=== PATIENT | male | born 1965 | race Caucasian/White ===

== ENCOUNTER 2016-10-15 10:30 | Inpatient (IN) | payer BC ==
[~2016-10-15] VITALS: Ht 170.2 cm; Wt 83.5 kg
[2016-10-15] MEDS ORDERED: ASPIRIN 81 MG TAB PO STA (10:34)
[2016-10-15] MEDS ORDERED: NITROGLYCERIN 2% 1 GM OINT PKT TD STA (10:34)
[2016-10-15] MEDS ORDERED: SOD CHLORIDE 0.9% 500 ML IV STA (10:40)
[2016-10-15] MEDS ORDERED: IODIXANOL LOCM 100 ML BTL ONE (10:58)
[2016-10-15] MEDS ORDERED: SOD CHLORIDE 0.9% 100 ML ONE (10:58)
[2016-10-15] MEDS ORDERED: IODIXANOL LOCM 50 ML BTL ONE (10:59)
[2016-10-15] MEDS ORDERED: LORAZEPAM 2 MG INJ IV ONE ×2 (11:00→12:30)
--- NOTE | 2016-10-15 11:01 | ERA ---
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 The patient has a history of hypertension and diabetes. He presents the emergency room complaining of chest pain. He states that prior to arrival while in his vehicle he started to have chest pain that was pressure-like radiating to his left arm. EMS notes that the patient had intermittent twitching of his left upper extremity without loss of consciousness. The patient denies any back pain, no fevers, chills, headache or shortness of breath. ROS All systems reviewed and are negative except as per history of present illness. Medications Home Meds No Active Prescriptions or Reported Meds Allergies Allergies: Coded Allergies: No Known Drug Allergies (Verified Allergy, Unknown, 10/15/16) PMhx/Soc History of Surgery: No Anesthesia Reaction: No Hx Neurological Disorder: No Hx Respiratory Disorders: No Hx Cardiac Disorders: No Hx Psychiatric Problems: No Hx Miscellaneous Medical Probl: No Hx Alcohol Use: Yes (OCCASSIONAL) Hx Substance Use: No Hx Tobacco Use: No FmHx Family History: diabetes Physical Exam Vitals Vital Signs Date Time Temp Pulse Resp B/P Pulse Ox O2 Delivery O2 Flow Rate FiO2 10/15/16 10:59 Nasal Cannula 10/15/16 10:48 98.8 79 30 133/64 98 Physical Exam General: Well developed, well nourished, no acute distress, the patient is intermittently having spasms of the left upper extremity Head: Normocephalic, atraumatic. Eyes: Pupils equally reactive, EOM intact ENT: Moist mucous membranes Neck: Supple, no lymphadenopathy Respiratory: Lungs clear bilaterally, no distress Cardiovascular: RRR, no murmurs, rubs, or gallops Abdominal: Soft, non-tender, non-distended, no peritoneal signs : Deferred MSK: No edema, no unilateral swelling, 5/5 strength, no pulse deficits Neurologic: Alert and oriented, moving all extremities, normal speech, no focal weakness, no cerebellar signs Skin: No rash Psych: Normal mood Result Diagram: 10/15/16 1048 10/15/16 1048 Results 24 hrs Laboratory Tests Test 10/15/16 10:35 10/15/16 10:48 10/15/16 11:42 4/24/17 12:13 Total Bilirubin 0.4mg/dl Direct Bilirubin 0.00mg/dl Indirect Bilirubin 0.4mg/dl Aspartate Amino Transf (AST/SGOT) 64IU/L Alanine Aminotransferase (ALT/SGPT) 29IU/L Alkaline Phosphatase 300IU/L Total Protein 6.6g/dl Albumin 2.7g/dl Lipase 680U/L White Blood Count 14.410^3/ul Red Blood Count 3.5610^6/ul Hemoglobin 10.3g/dl Hematocrit 32.3% Mean Corpuscular Volume 90.7fl Mean Corpuscular Hemoglobin 28.9pg Mean Corpuscular Hemoglobin Concent 31.9g/dl Red Cell Distribution Width 13.7% Platelet Count 06243^3/UL Mean Platelet Volume 11.1fl Neutrophils % 86.8% Lymphocytes % 6.3% Monocytes % 5.8% Eosinophils % 0.1% Basophils % 0.2% Nucleated Red Blood Cells % 0.0/100WBC Neutrophils # 12.510^3/ul Lymphocytes # 0.910^3/ul Monocytes # 0.810^3/ul Eosinophils # 0.010^3/ul Basophils # 0.010^3/ul Nucleated Red Blood Cells # 0.010^3/ul Prothrombin Time 15.4Sec Prothrombin Time Ratio 1.2 INR International Normalized Ratio 1.21 Activated Partial Thromboplast Time 37.1Sec Sodium Level 122mmol/L Potassium Level 5.0mmol/L Chloride Level 91mmol/L Carbon Dioxide Level 22mmol/L Anion Gap 14 Blood Urea Nitrogen 11mg/dl Creatinine 0.64mg/dl Glucose Level 574mg/dl Calcium Level 8.6mg/dl Phosphorus Level 2.8mg/dl Magnesium Level 2.2mg/dl Troponin I < 0.012ng/ml Blood Gas Specimen Source Blood venous Arterial Blood Date Drawn 10/15/2016 12:09:45 PM Arterial Blood Gas Puncture Site VENOUS LINE [place] Test N/A Venous Blood pH 7.433 Venous Blood pCO2 (Temp Corrected) 32.7mmHG Venous Blood pO2 (Temp Corrected) 54.2mmHG Venous Blood HCO3 21.4mmol/L Venous Blood Oxygen Saturation 86.5mmHG Venous Blood Base Excess -2.3mmol/L Venous Blood Total Hemoglobin 10.9g/dl Venous Blood Oxyhemoglobin 86.0% Venous Blood Methemoglobin 0.3% Carboxyhemoglobin 0.3% Blood Gas Temperature 37.0C Blood Gas Actual Respiration Rate 20 Blood Gas Modality ROOM AIR FiO2 21.0% Blood Gas Notified Whom MIKE RT Blood Gas Notified Time 10/15/2016 12:15:48 PM Ammonia < 9umol/l Current Medications Medications (Trade) Dose Ordered Sig/Shira Route PRN Reason Start Time Stop Time Status Last Admin Dose Admin Aspirin (Aspirin) 162 mg ONCE STAT PO 10/15/16 10:34 10/15/16 10:36 DC 10/15/16 11:23 Nitroglycerin 1 inch 1 inch ONCE STAT TD 10/15/16 10:34 10/15/16 10:36 DC 10/15/16 11:23 Sodium Chloride (NS) 500 ml @ 500 mls/hr Q1H STAT IV 10/15/16 10:40 10/15/16 11:39 DC 10/15/16 11:22 Lorazepam (Ativan) 1 mg ONCE ONCE IV 10/15/16 11:00 10/15/16 11:01 DC 10/15/16 11:22 IV Flush 10 ml 10 ml STK-MED ONCE .ROUTE 10/15/16 10:58 10/15/16 10:59 DC 10/15/16 11:28 Sodium Chloride (NS) 100 ml @ ud STK-MED ONCE .ROUTE 10/15/16 10:58 10/15/16 10:59 DC 10/15/16 11:29 Iodixanol (Visipaque Locm) 100 ml STK-MED ONCE .ROUTE 10/15/16 10:58 10/15/16 10:59 DC 10/15/16 11:30 Iodixanol 50 ml 50 ml STK-MED ONCE .ROUTE 10/15/16 10:59 10/15/16 11:00 DC 10/15/16 11:30 Sodium Chloride (NS) 2,000 ml @ 1,000 mls/hr Q2H STAT IV 10/15/16 11:42 10/15/16 13:41 10/15/16 12:26 Insulin Human Lispro (Humalog) 7 unit ONCE STAT SC 10/15/16 11:53 10/15/16 11:55 DC 10/15/16 12:30 Lorazepam (Ativan) 1 mg ONCE ONCE IV 10/15/16 12:30 10/15/16 12:31 DC 10/15/16 12:26 Ondansetron HCl (Zofran Inj) 4 mg ER BRIDGE PRN IV NAUSEA AND/OR VOMITING 10/15/16 13:00 10/16/16 12:59 Acetaminophen (Tylenol Tab) 650 mg ER BRIDGE PRN PO MILD PAIN/FEVER 10/15/16 13:00 10/16/16 12:59 Procedures/MDM EKG, MONITORS, & DIAGNOSTIC IMAGING: EKG: I reviewed and interpreted a 12-lead EKG. Rhythm: Normal sinus rhythm Ectopy: None Intervals: No abnormalities ST segments: No elevations or depressions T waves: No contiguous inversions Repeat EKG: EKG: I reviewed and interpreted a 12-lead EKG. Rhythm: Normal sinus rhythm Ectopy: None Intervals: No abnormalities ST segments: No elevations or depressions T waves: No contiguous inversions Chest x-ray: I reviewed and interpreted a 1 view of the chest Mediastinum: No enlargement Cardiac silhouette: No cardiomegaly Airspace: Clear lung cruz bilaterally without evidence of pneumothorax Bones: No evidence of fracture CT brain: IMPRESSION: 1. No acute intracranial hemorrhage, transcortical infarction or mass effect. 2. Mild chronic small vessel ischemic changes. 3. Mild generalized cerebral volume loss. RPTAT: UU CT angios chest: IMPRESSION: 1. No evidence of aortic aneurysm or dissection. 2. No evidence of central pulmonary emboli. 3. Moderate mediastinal, prevascular space and retrosternal lymphadenopathy as described above. 4. Numerous bilateral noncalcified pulmonary nodules as above consistent with metastasis. It is 5. Extensive inhomogeneous ill-defined low density lesions involving the right left lobes of the liver consistent with malignancy likely metastasis. Multi focal hepatic cellular carcinoma cannot be excluded. 6. Findings suggestive of cirrhosis. RPTAT:AAJJ LAB INTERPRETATION: Leukocytosis of 14, hemoglobin of 10, hyperglycemia without diabetic ketoacidosis, normal ammonia, negative troponin MEDICAL DECISION MAKING: The patient's history, physical exam and clinical presentation is concerning for possible cardiogenic etiology and acute coronary syndrome. Additionally, the patient is having episodes of twitching and spasm of the left upper extremity. These occur in waves however the patient is able to move his left upper extremity when these happen and he is able to follow commands. The patient has no altered sensorium during this timeframe but does have diaphoresis. Unclear etiology of the spasms, consider electrolytic disturbance. I will could consider dissection though presentation would be atypical, focal seizures would also be atypical given the control he has over his extremity. Based on the patient's clinical exam and history and risk factors, I have a much lower clinical concern for pulmonary embolism, acute aortic dissection, pneumothorax, pneumonia, cardiac tamponade HEART Score: 4 MACE Rate: 16.6% Shared Decision Making: We had a conversation regarding risk stratification, MACE rate, and the risks, benefits, alternatives of disposition planning options. Disposition planning: Inpatient hospitalization is necessary ER COURSE: Aspirin and nitroglycerin given via EMS with control of the patient's chest pain. However the patient continues to have twitching. Ativan provided. Given concern for possible dissection I believe prompt CTA imaging is necessary and imperative. I believe the benefits outweigh the risks and therefore I will not wait for her chemistry profile to come back. The patient CTA shows evidence of likely metastatic liver disease. The patient was informed of this. He does make us aware that he has been diagnosed with a history of cirrhosis. This is new information. Liver function profile pneumonia added onto his laboratory testing. Ammonia is normal. The patient continues to have twitching that improves with Ativan. Unclear significance. Patient CT brain is negative. MRI imaging may be necessary to rule out metastatic disease process. Continue benzodiazepine for treatment. The patient was informed of CT findings concerning for malignancy. He will be admitted for further management. Hyperglycemia treated with 2 L of normal saline and 7 units of Humalog. No evidence of DKA. I kept the patient and/or family informed of laboratory and diagnostic imaging results throughout the emergency room course. DISPOSITION PLAN: Telemetry admission for complex management of above CONSULTATION: Accepting care team and consultations: I discussed the current laboratory data, diagnostic imaging and emergency care provided. Admitting team: Dr. Renteria Admitting team indication: Insurance directed Critical Care Note: Total time: 47 minutes Indication/Organ System Threat: Complex presentation requiring rapid evaluation to rule out dissection I spent the above amount of critical care time with the patient, not including billable procedures. This included chart review, consultations, repeat bedside evaluations, and titration of appropriate medications to prevent cardiopulmonary or respiratory collapse. Departure Diagnosis: Primary Impression: Chest pain Qualified Code: R07.9 - Chest pain, unspecified type Additional Impressions: Metastatic cancer Cirrhosis Qualified Code: K74.60 - Cirrhosis of liver without ascites, unspecified hepatic cirrhosis type Hyperglycemia Condition: Stable HAYLEY SOLOMON MD Oct 15, 2016 11:01
[2016-10-15 11:23] LABS: ADD SCAN DIFF NO
[2016-10-15 11:27] LABS: BASOPHILS % 0.2 % (0.0-2.0); EOSINOPHILS % 0.1 % (0.0-7.0); HEMATOCRIT 32.3 % (42.0-52.0); HEMOGLOBIN 10.3 g/dl (14.0-18.0); LYMPHOCYTES # 0.9 10^3/ul (0.8-2.9); LYMPHOCYTES % 6.3 % (15.0-51.0); MEAN CORPUSCULAR HEMOGLOBIN 28.9 pg (29.0-33.0); MEAN CORPUSCULAR HGB CONC 31.9 g/dl (32.0-37.0); MEAN CORPUSCULAR VOLUME 90.7 fl (82.0-101.0); MEAN PLATELET VOLUME 11.1 fl (7.4-10.4); MONOCYTE # 0.8 10^3/ul (0.3-0.9); MONOCYTES % 5.8 % (0.0-11.0); NEUTROPHIL # 12.5 10^3/ul (1.6-7.5); NEUTROPHILS % 86.8 % (39.0-77.0); PLATELET COUNT 307 10^3/UL (140-415); RED BLOOD COUNT 3.56 10^6/ul (4.70-6.10); RED CELL DISTRIBUTION WIDTH 13.7 % (11.5-14.5); WHITE BLOOD COUNT 14.4 10^3/ul (4.8-10.8)
--- NOTE | 2016-10-15 11:27 | RADRPT ---
PROCEDURE: CT Brain without. CLINICAL INDICATION: Checking of left upper extremity. TECHNIQUE: A CT of the brain was performed on multidetector high-resolution CT scanner utilizing a xial sections from the skull base through the vertex without contrast. The scan was reviewed in sof t tissue brain and high frequency resolution bone algorithm windows. Images were reviewed on a high -resolution PACS workstation. One or more the following does reduction techniques were utilized: Aut omated exposure control, adjustment of the mA/ or kV according to patient's size, or use of iterativ e reconstruction technique. The exam CTDI = 43.48 mGy and the DLP = 720.23 mGy-cm. COMPARISON: None available. FINDINGS: The ventricles and sulci are mildly prominent indicative of volume loss. There is no intracranial h emorrhage, mass effect or midline shift. No abnormal intra-axial or extra-axial fluid collections a re seen. The perez/white matter differentiation is preserved. There are mild scattered foci of hypoattenuation in the white matter, which are nonspecific in etiol ogy but likely reflect chronic small vessel ischemic changes. The visualized paranasal sinuses are essentially clear. IMPRESSION: 1. No acute intracranial hemorrhage, transcortical infarction or mass effect. 2. Mild chronic small vessel ischemic changes. 3. Mild generalized cerebral volume loss. RPTAT: UU .Atul Benitez MD, MD Date Time Electronically viewed and signed by .Atul Benitez MD, MD on 10/15/2016 11:27 .N/
[2016-10-15 11:40] LABS: ANION GAP 14 (8-16); BLOOD UREA NITROGEN 11 mg/dl (7-20); CALCIUM 8.6 mg/dl (8.4-10.2); CARBON DIOXIDE 22 mmol/L (21-31); CHLORIDE 91 mmol/L (97-110); CREATININE 0.64 mg/dl (0.61-1.24); SODIUM 122 mmol/L (135-144)
[2016-10-15 11:42] LABS: GLUCOSE 574 mg/dl (70-220)
[2016-10-15] MEDS ORDERED: SOD CHLORIDE 0.9% 2,000 ML IV STA (11:42)
--- NOTE | 2016-10-15 11:46 | RADRPT ---
PROCEDURE: CT angiogram of the chest with contrast. CLINICAL INDICATION: Rule out aortic dissection. TECHNIQUE: CT scan of the chest with contrast was performed on a multidetector high-resolution CT scan. The patient was scanned following the uncomplicated intravenous administration of 115 ml of V isipaque 320. Coronal and sagittal reformatted images were obtained from the axial source images. [facility] angiogram of the chest with contrast protocols were performed. The total exam CTDI equals 56.34 mGy and the total exam DLP equals 772.14 mGy-cm. One or more of the following dose reduction techniques were used: - Automated exposure control. - Adjustment of the mA and/or kV according to patient size. Use of iterative reconstruction technique. COMPARISON: None. FINDINGS: The thoracic and proximal abdominal aorta are unremarkable without aortic aneurysm or dissection. T here is no evidence of central pulmonary emboli. The right and left subclavian arteries and origin of the great vessels are unremarkable. Celiac axis in this portion of the SMA visualized are unrema rkable. There is moderate left paratracheal lymphadenopathy with a minimal diameter of approximately 1.5 cm. There is prevascular space lymphadenopathy with a minimal diameter of approximately 1.6 cm. There is enlarged lymph node along the right superior mediastinum located to the right of the inferior ma nubrium with a minimal diameter of approximately 1.7 cm. No evidence of axillary or hilar lymphaden opathy. There is lymphadenopathy along the anterior right heart just caudal to the inferior sternum with a minimal diameter of 1.9 cm. The right hemidiaphragm is elevated. The heart is within normal limits in size without pericardial effusion. No evidence of pleural effusions or pneumothoraces. There are numerous bilateral noncalc ified pulmonary nodules largest involving the left involving the medial lingula left upper lobe andrea uring 1.3 cm and on the left involving the lateral posterior right upper lobe measuring 1 cm. The f indings are consistent with metastasis. There is atelectasis involving the right middle and lower l obes. There is extensive inhomogeneous ill-defined low density lesions throughout the superior right and l eft lobes of the liver and in the posterior and lateral mid right lobe of the liver consistent with malignancy likely metastasis though multi focal hepatic cellular carcinoma cannot be excluded.. Not e that there is severe nodularity of the hepatic margin suggesting cirrhosis. The remainder of the i mages of the upper abdomen are unremarkable. There is extensive degenerative changes of the lower c ervical and thoracic spine. IMPRESSION: 1. No evidence of aortic aneurysm or dissection. 2. No evidence of central pulmonary emboli. 3. Moderate mediastinal, prevascular space and retrosternal lymphadenopathy as described above. 4. Numerous bilateral noncalcified pulmonary nodules as above consistent with metastasis. It is 5. Extensive inhomogeneous ill-defined low density lesions involving the right left lobes of the li tho consistent with malignancy likely metastasis. Multi focal hepatic cellular carcinoma cannot be excluded. 6. Findings suggestive of cirrhosis. RPTAT:AAJJ Physician Serene Date Time Electronically viewed and signed by Physician Serene on 10/15/2016 11:46 BM/
[2016-10-15 11:48] LABS: INR 1.21; PROTIME 15.4 Sec (12.2-14.2); PT RATIO 1.2
[2016-10-15 11:49] LABS: PARTIAL THROMBOPLASTIN TIME 37.1 Sec (25.0-35.0)
[2016-10-15 11:52] LABS: TROPONIN-I < 0.012 ng/ml (0.00-0.12)
[2016-10-15] MEDS ORDERED: INSULIN LISPRO 100 UNIT/ML VIAL SC STA (11:53)
--- NOTE | 2016-10-15 12:00 | RADRPT ---
PROCEDURE: Chest Radiograph. CLINICAL INDICATION: Chest pain TECHNIQUE: Single frontal chest radiograph. COMPARISON: CT chest 10/15/2016 FINDINGS: The heart is magnified and may be mildly enlarged. Mediastinal adenopathy seen on recent CT is not w ell appreciated on this study. Pulmonary nodules seen on recent CT scan are better appreciated by CT though some are seen by plain film radiography. There is moderate elevation of the right hemidiaph ragm with associated right basilar atelectasis no definitive confluent or lobar infiltrate is seen.. The bones are intact. IMPRESSION: 1. Moderate elevation of the right hemidiaphragm with associated right basilar atelectasis. 2. Pulmonary nodules and mediastinal adenopathy seen on recent CT are poorly evaluated by plain magi m radiography. RPTAT: KK .Emil Perdomo MD, Date Time Electronically viewed and signed by .Emil Perdomo MD, MD on 10/15/2016 12:00 .B/
[2016-10-15 12:18] LABS: MODE ROOM AIR; MetHgb Venous 0.3 %; Sample Type Blood venous; Venous COHb 0.3 %; Venous Total Hemglobin 10.9 g/dl
[2016-10-15 12:44] LABS: ALBUMIN 2.7 g/dl (3.3-4.9)
[2016-10-15 12:47] LABS: BILIRUBIN,INDIRECT 0.4 mg/dl (0-1.1); BILIRUBIN,TOTAL 0.4 mg/dl (0.2-1.3); TOTAL PROTEIN 6.6 g/dl (6.1-8.1)
[2016-10-15] MEDS ORDERED: ONDANSETRON 4 MG INJ IV PRN ×2 (13:00→15:30)
[2016-10-15] MEDS ORDERED: ACETAMINOPHEN 325 MG TAB PO PRN (13:00)
[2016-10-15] MEDS ORDERED: GLUCOSE GEL 15 GRAM TUBE PO PRN ×2 (15:30)
[2016-10-15] MEDS ORDERED: GLUCAGON 1 MG INJ IM PRN (15:30)
[2016-10-15] MEDS ORDERED: DEXTROSE 50% 50 ML SYRINGE IV PRN ×2 (15:30)
[2016-10-15] MEDS ORDERED: NACL 0.9% 3 ML SYG IV SCH (15:30)
[2016-10-15] MEDS ORDERED: morphine 2 MG INJ IV PRN (15:30)
[2016-10-15] MEDS ORDERED: BISACODYL (EC) 5 MG TAB PO PRN (15:30)
[2016-10-15] MEDS ORDERED: GLUCOSE GEL 15 GRAM TUBE BUCCAL PRN (15:30)
[2016-10-15] MEDS ORDERED: DOCUSATE SODIUM 100 MG CAP PO PRN (15:30)
[2016-10-15] MEDS: CEFTRIAXONE 1 GM/50 ML (PMX) 50 ML IVPB SCH (16:00)
--- NOTE | 2016-10-15 16:19 | CONS ---
DATE OF ADMISSION: 10/15/2016 DATE OF CONSULTATION: 10/15/2016 REASON FOR CONSULTATION: Abnormal chest CT. Thank you, Dr. Felix, for this consultation. HISTORY OF PRESENT ILLNESS: This is a 51-year-old gentleman with a history of moderate alcohol cons umption, somewhat poor historian, comes in with vague chest pain, pressure-like radiating down to hi s left arm. No nausea, no vomiting, no loss of consciousness, no head injury. CT chest was perform ed noted to have multiple tiny nodules and evidence of multiple nodules in his liver consistent with metastatic disease. The patient is a poor historian. Few further details are available. CT brain was unremarkable. PAST MEDICAL HISTORY: Diabetes, hypertension, hyperlipidemia. MEDICATIONS: Per chart. ALLERGIES: NONE. SOCIAL HISTORY: Nonsmoker, occasional alcohol, no history of drug use. FAMILY HISTORY: Noncontributory. SYSTEMS REVIEW: A 14-point review of systems was negative other than that mentioned above. PHYSICAL EXAMINATION: GENERAL: Elderly-appearing gentleman, appears comfortable at rest, no acute distress. VITAL SIGNS: Currently afebrile. Pulse is 80, blood pressure 130/64, O2 saturation 98% on room air . NECK: Supple. No JVD or lymphadenopathy. CARDIAC: S1, S2. No added sounds or murmurs. CHEST: Diminished air entry bilaterally. ABDOMEN: Soft, nontender. No guarding or rebound. EXTREMITIES: No cyanosis, clubbing, edema. NEUROLOGIC: Generalized weakness. LABORATORY DATA: White count 14.4, hemoglobin 10.3, platelets 307. BUN 11, glucose 574. Sodium 12 2, bicarbonate was 22, lipase 68.0. IMPRESSION AND PLAN: 1. New finding of liver lesions concerning for metastatic disease with metastatic lesions in the rafat ng concerning for possible primary bowel cancer with lesions to the liver and lung. In addition, ev idence of mild pancreatitis. The patient would likely benefit from CT-guided biopsy of liver lesion s, both for staging and diagnostic purposes and then referral to hematology/oncology for continuing care. Consider referral to gastroenterology given pancreatitis and consider antibiotic therapy for leukocytosis. Of note, the patient has significant hyperglycemia with subsequent hyponatremia. Wou ld recommend correction of hypoglycemia with insulin either in the intensive care unit on insulin dr ip or aggressive long and short-acting insulin medications on the floor. Overall prognosis is guard ed. Dictated By: DANIELE BARBER/JR Conf#: [id number] DID#: [id number]
[2016-10-15 16:21] LABS: CREATINE KINASE 151 IU/L (23-200)
[2016-10-15 16:31] LABS: CK-MB 0.27 ng/ml (0.0-2.4); TROPONIN-I < 0.012 ng/ml (0.00-0.12)
--- NOTE | 2016-10-15 17:39 | CONS ---
Date/Time of Note Date/Time of Note DATE: 10/15/16 TIME: 17:38 Assessment/Plan Assessment/Plan Additional Assessment/Plan Appreciate the consult. Reviewed available information remotely. Agree with liver biopsy as a starting point. There will be no role for surgical intervention. I will make an official visit if further work up will indicate. Thank you again for the consultation. Consultation Date/Type/Reason Admit Date/Time Social History Smoking Status: Unknown if ever smoked Exam/Review of Systems Vital Signs Vitals Vital Signs Date Time Temp Pulse Resp B/P Pulse Ox O2 Delivery O2 Flow Rate FiO2 10/15/16 10:59 Nasal Cannula 10/15/16 10:48 98.8 79 30 133/64 98 Results Result Diagram: 10/15/16 1048 10/15/16 1048 Results 24 hrs Laboratory Tests Test 10/15/16 10:35 10/15/16 10:48 10/15/16 11:42 10/15/16 12:13 Total Bilirubin 0.4 Direct Bilirubin 0.00 Indirect Bilirubin 0.4 Aspartate Amino Transf (AST/SGOT) 64 H Alanine Aminotransferase (ALT/SGPT) 29 Alkaline Phosphatase 300 H Total Protein 6.6 Albumin 2.7 L Lipase 680 H White Blood Count 14.4 H Red Blood Count 3.56 L Hemoglobin 10.3 L Hematocrit 32.3 L Mean Corpuscular Volume 90.7 Mean Corpuscular Hemoglobin 28.9 L Mean Corpuscular Hemoglobin Concent 31.9 L Red Cell Distribution Width 13.7 Platelet Count 307 Mean Platelet Volume 11.1 H Neutrophils % 86.8 H Lymphocytes % 6.3 L Monocytes % 5.8 Eosinophils % 0.1 Basophils % 0.2 Nucleated Red Blood Cells % 0.0 Neutrophils # 12.5 H Lymphocytes # 0.9 Monocytes # 0.8 Eosinophils # 0.0 Basophils # 0.0 Nucleated Red Blood Cells # 0.0 Prothrombin Time 15.4 H Prothrombin Time Ratio 1.2 INR International Normalized Ratio 1.21 Activated Partial Thromboplast Time 37.1 H Sodium Level 122 L Potassium Level 5.0 Chloride Level 91 L Carbon Dioxide Level 22 Anion Gap 14 Blood Urea Nitrogen 11 Creatinine 0.64 Glucose Level 574 *H Calcium Level 8.6 Phosphorus Level 2.8 Magnesium Level 2.2 Troponin I < 0.012 Blood Gas Specimen Source Blood venous Arterial Blood Date Drawn 10/15/2016 12:09:45 PM Arterial Blood Gas Puncture Site VENOUS LINE [place] Test N/A Venous Blood pH 7.433 H Venous Blood pCO2 (Temp Corrected) 32.7 L Venous Blood pO2 (Temp Corrected) 54.2 H Venous Blood HCO3 21.4 L Venous Blood Oxygen Saturation 86.5 H Venous Blood Base Excess -2.3 Venous Blood Total Hemoglobin 10.9 Venous Blood Oxyhemoglobin 86.0 Venous Blood Methemoglobin 0.3 Carboxyhemoglobin 0.3 Blood Gas Temperature 37.0 Blood Gas Actual Respiration Rate 20 Blood Gas Modality ROOM AIR FiO2 21.0 Blood Gas Notified Whom MIKE RT Blood Gas Notified Time 10/15/2016 12:15:48 PM Ammonia < 9 L Test 10/15/16 15:18 10/15/16 15:20 Bedside Glucose 280 H Creatine Kinase 151 Creatine Kinase Index 0.2 Creatinine Kinase MB (Mass) 0.27 Troponin I < 0.012 Medications Medications Current Medications Insulin Aspart NOVOLOG *MILD* ALGORI... Q4 SC ; Start 10/15/16 at 17:00 Sodium Chloride (NS) 1,000 ml @ 100 mls/hr Q10H IV ; Start 10/15/16 at 15:04 Ondansetron HCl (Zofran Inj) 4 mg Q6H PRN IV NAUSEA AND/OR VOMITING; Start at 15:30 Acetaminophen (Tylenol Tab) 650 mg Q6H PRN PO PAIN LEVEL 1-3 OR FEVER; Start at 15:30 Acetaminophen/ Hydrocodone Bitart ([place] (5/325)) 1 tab Q6H PRN PO MODERATE PAIN LEVEL 4-6; Start 10/15/16 at 15:30 Morphine Sulfate (morphine) 1 mg Q4H PRN IV SEVERE PAIN LEVEL 7-10; Start 10/15 at 15:30 Docusate Sodium (Colace) 100 mg Q12H PRN PO CONSTIPATION; Start 10/15/16 at 15: 30 Bisacodyl (Dulcolax) 5 mg DAILY PRN PO CONSTIPATION; Start 10/15/16 at 15:30 Famotidine 20 mg 20 mg Q12 IV ; Start 10/15/16 at 21:00 Ceftriaxone Sodium (Rocephin) 50 ml @ 100 mls/hr Q24H IVPB ; Start 4/24/17 at 16:00 Miscellaneous Information 1 ea NOTE XX ; Start 10/15/16 at 15:30 Glucose (Glutose) 15 gm Q15M PRN PO DECREASED GLUCOSE; Start 10/15/16 at 15:30 Glucose (Glutose) 22.5 gm Q15M PRN PO DECREASED GLUCOSE; Start 10/15/16 at 15: 30 Dextrose (D50w Syringe) 25 ml Q15M PRN IV DECREASED GLUCOSE; Start 10/15/16 at 15:30 Dextrose (D50w Syringe) 50 ml Q15M PRN IV DECREASED GLUCOSE; Start 10/15/16 at 15:30 Glucagon (Glucagen) 1 mg Q15M PRN IM DECREASED GLUCOSE; Start 10/15/16 at 15:30 Glucose (Glutose) 15 gm Q15M PRN BUCCAL DECREASED GLUCOSE; Start 10/15/16 at 15 :30 Insulin Glargine (Lantus) 5 unit DAILY@20 SC ; Start 10/15/16 at 20:00 JENNIFER NASSAR M.D. Oct 15, 2016 17:39
[2016-10-15] MEDS: SOD CHLORIDE 0.9% 1,000 ML IV SCH (18:08)
[2016-10-15] MEDS: INSULIN ASPART [NOVOLOG] 3 ML PEN SC SCH ×2 (18:51→21:01)
[2016-10-15 19:34] VITALS: BP 146/69; PULSE 96; RESP 18
[2016-10-15 19:37] VITALS: Ht 170.2 cm; Wt 83.5 kg
[2016-10-15] MEDS ORDERED: INSULIN GLARGINE [LANtus] 3 ML PEN SC SCH (20:00)
[2016-10-15 20:20] VITALS: PULSE 90
--- NOTE | 2016-10-15 20:55 | CONS ---
Date/Time of Note Date/Time of Note DATE: 10/15/16 TIME: 20:44 Assessment/Plan Assessment/Plan Chief Complaint/Hosp Course The patient is a 51 year old male previously treated by Dr. Joy (need to verify prior cancer history an treatment course with Dr. Joy) with a history of alcoholic cirrhosis, DM, history of colorectal cancer status post surgery, chemo and radiation per patient's in 2014, now presenting with new metastatic disease to the liver and lung. CT reveals moderate mediastinal, prevascular space and retrosternal lymphadenopathy, numerous bilateral noncalcified pulmonary nodules up to 1.3 cm consistent with metastasis, and extensive inhomogeneous ill-defined low density lesions involving the right left lobes of the liver consistent with malignancy likely metastasis though multi focal hepatic cellular carcinoma cannot be excluded with findings suggestive of cirrhosis. - Will clarify prior history with Dr. Joy - Liver/lung lesions concerning for metastatic colorectal cancer, however will obtain [address] A/P to evaluate for multifocal HCC given history of alcoholic cirrhosis - Will check CEA, AFP, CA 19-9 - Depending on the above findings, will biopsy liver lesion vs. other - Will check Hep panel, HIV Will continue to follow Problems: Consultation Date/Type/Reason Admit Date/Time Date of Consultation: Oct 15, 2016 Type of Consultation: Oncology Reason for Consultation History of colorectal cancer, now with liver/lung mets Hx of Present Illness The patient is a 51 year old male previously treated by Dr. Joy (need to verify prior cancer history an treatment course with Dr. Joy) with a history of colorectal cancer status post surgery, chemo and radiation per patient's in 2014, now presenting with new metastatic disease to the liver and lung. CT reveals moderate mediastinal, prevascular space and retrosternal lymphadenopathy, numerous bilateral noncalcified pulmonary nodules up to 1.3 cm consistent with metastasis, and extensive inhomogeneous ill-defined low density lesions involving the right left lobes of the liver consistent with malignancy likely metastasis though multi focal hepatic cellular carcinoma cannot be excluded with findings suggestive of cirrhosis. Per his he has a history alcoholic cirrhosis. The patient had stopped drinking after his initial diagnosis in 2014 but started drinking 1 month ago. His family states that after he started drinking again, he started having right sided abdominal pain. He does remain fairly functional and able to perform his ADL's. Past Medical History Alcoholic cirrhosis Hypertension Diabetes Family History Significant Family History: no pertinent family hx Social History Alcohol Use: heavy Smoking Status: Never smoker Exam/Review of Systems Vital Signs Vitals Vital Signs Date Time Temp Pulse Resp B/P Pulse Ox O2 Delivery O2 Flow Rate FiO2 10/15/16 20:20 90 10/15/16 19:34 100.3 18 146/69 Room Air 10/15/16 10:48 98 Exam Constitutional: oriented Psych: no complaints Head: normocephalic Eyes: nl conjunctiva Respiratory: clear to auscultation Cardiovascular: regular rate and rhythm Gastrointestinal: soft, tender (suprapubic tenderness) Musculoskeletal: nl extremities to inspection Neurological: GENERAL PRODUCTION WORKER II-XII intact Results Result Diagram: 10/15/16 1048 10/15/16 1048 Results 24 hrs Laboratory Tests Test 10/15/16 10:35 10/15/16 10:48 10/15/16 11:42 10/15/16 12:13 Total Bilirubin 0.4 Direct Bilirubin 0.00 Indirect Bilirubin 0.4 Aspartate Amino Transf (AST/SGOT) 64 H Alanine Aminotransferase (ALT/SGPT) 29 Alkaline Phosphatase 300 H Total Protein 6.6 Albumin 2.7 L Lipase 680 H White Blood Count 14.4 H Red Blood Count 3.56 L Hemoglobin 10.3 L Hematocrit 32.3 L Mean Corpuscular Volume 90.7 Mean Corpuscular Hemoglobin 28.9 L Mean Corpuscular Hemoglobin Concent 31.9 L Red Cell Distribution Width 13.7 Platelet Count 307 Mean Platelet Volume 11.1 H Neutrophils % 86.8 H Lymphocytes % 6.3 L Monocytes % 5.8 Eosinophils % 0.1 Basophils % 0.2 Nucleated Red Blood Cells % 0.0 Neutrophils # 12.5 H Lymphocytes # 0.9 Monocytes # 0.8 Eosinophils # 0.0 Basophils # 0.0 Nucleated Red Blood Cells # 0.0 Prothrombin Time 15.4 H Prothrombin Time Ratio 1.2 INR International Normalized Ratio 1.21 Activated Partial Thromboplast Time 37.1 H Sodium Level 122 L Potassium Level 5.0 Chloride Level 91 L Carbon Dioxide Level 22 Anion Gap 14 Blood Urea Nitrogen 11 Creatinine 0.64 Glucose Level 574 *H Calcium Level 8.6 Phosphorus Level 2.8 Magnesium Level 2.2 Troponin I < 0.012 Blood Gas Specimen Source Blood venous Arterial Blood Date Drawn 10/15/2016 12:09:45 PM Arterial Blood Gas Puncture Site VENOUS LINE [place] Test N/A Venous Blood pH 7.433 H Venous Blood pCO2 (Temp Corrected) 32.7 L Venous Blood pO2 (Temp Corrected) 54.2 H Venous Blood HCO3 21.4 L Venous Blood Oxygen Saturation 86.5 H Venous Blood Base Excess -2.3 Venous Blood Total Hemoglobin 10.9 Venous Blood Oxyhemoglobin 86.0 Venous Blood Methemoglobin 0.3 Carboxyhemoglobin 0.3 Blood Gas Temperature 37.0 Blood Gas Actual Respiration Rate 20 Blood Gas Modality ROOM AIR FiO2 21.0 Blood Gas Notified Whom MIKE LEES Blood Gas Notified Time 10/15/2016 12:15:48 PM Ammonia < 9 L Test 10/15/16 15:18 10/15/16 15:20 10/15/16 18:49 Bedside Glucose 280 H 201 Creatine Kinase 151 Creatine Kinase Index 0.2 Creatinine Kinase MB (Mass) 0.27 Troponin I < 0.012 Medications Medications Current Medications Insulin Aspart NOVOLOG *MILD* ALGORI... Q4 SC Last administered on 10/15/16 18 :51; Admin Dose 2 UNIT; Start 10/15/16 at 17:00 Sodium Chloride (NS) 1,000 ml @ 100 mls/hr Q10H IV Last administered on 18:08; Admin Dose 100 MLS/HR; Start 10/15/16 at 15:04 Ondansetron HCl (Zofran Inj) 4 mg Q6H PRN IV NAUSEA AND/OR VOMITING; Start at 15:30 Acetaminophen (Tylenol Tab) 650 mg Q6H PRN PO PAIN LEVEL 1-3 OR FEVER; Start at 15:30 Acetaminophen/ Hydrocodone Bitart ([place] (5/325)) 1 tab Q6H PRN PO MODERATE PAIN LEVEL 4-6; Start 10/15/16 at 15:30 Morphine Sulfate (morphine) 1 mg Q4H PRN IV SEVERE PAIN LEVEL 7-10; Start 10/15 at 15:30 Docusate Sodium (Colace) 100 mg Q12H PRN PO CONSTIPATION; Start 10/15/16 at 15: 30 Bisacodyl (Dulcolax) 5 mg DAILY PRN PO CONSTIPATION; Start 10/15/16 at 15:30 Famotidine 20 mg 20 mg Q12 IV ; Start 10/15/16 at 21:00 Ceftriaxone Sodium (Rocephin) 50 ml @ 100 mls/hr Q24H IVPB Last administered on 10/15/16t 16:00; Admin Dose 100 MLS/HR; Start 10/15/16 at 16:00 Miscellaneous Information 1 ea NOTE XX ; Start 10/15/16 at 15:30 Glucose (Glutose) 15 gm Q15M PRN PO DECREASED GLUCOSE; Start 10/15/16 at 15:30 Glucose (Glutose) 22.5 gm Q15M PRN PO DECREASED GLUCOSE; Start 10/15/16 at 15: 30 Dextrose (D50w Syringe) 25 ml Q15M PRN IV DECREASED GLUCOSE; Start 10/15/16 at 15:30 Dextrose (D50w Syringe) 50 ml Q15M PRN IV DECREASED GLUCOSE; Start 10/15/16 at 15:30 Glucagon (Glucagen) 1 mg Q15M PRN IM DECREASED GLUCOSE; Start 10/15/16 at 15:30 Glucose (Glutose) 15 gm Q15M PRN BUCCAL DECREASED GLUCOSE; Start 10/15/16 at 15 :30 Insulin Glargine (Lantus) 5 unit DAILY@20 SC ; Start 10/15/16 at 20:00 TOANA PAULA MD Oct 15, 2016 20:55
[2016-10-15] MEDS: FAMOTIDINE 20 MG INJ IV SCH (21:06)
[2016-10-15] MEDS: ACETAMINOPHEN 325 MG TAB PO PRN (21:06)
[2016-10-15 21:35] LABS: CREATINE KINASE 148 IU/L (23-200)
[2016-10-15 21:53] LABS: CK-MB < 0.22 ng/ml (0.0-2.4); TROPONIN-I < 0.012 ng/ml (0.00-0.12)
[2016-10-16] VITALS (12 sets, daily range): BP systolic 135–154; BP diastolic 67–83; PULSE 80–92; RESP 18–21
[2016-10-16] MEDS ORDERED: METO5TAB11 (00:17)
[2016-10-16] MEDS ORDERED: SIMV10TA6 (00:17)
[2016-10-16] MEDS ORDERED: ENAL5TAB (00:17)
[2016-10-16] MEDS ORDERED: METF500T4 (00:17)
[2016-10-16] MEDS: INSULIN ASPART [NOVOLOG] 3 ML PEN SC SCH ×6 (02:10→20:48)
[2016-10-16] MEDS: SOD CHLORIDE 0.9% 1,000 ML IV SCH ×3 (02:13→21:04)
--- NOTE | 2016-10-16 06:29 | HP ---
DATE OF ADMISSION: 10/15/2016 CONSULTANTS: 1. Dr. Cosme Landry 2. Dr. Solomon To 3. Dr. Zeeshan Rubio CHIEF COMPLAINT: Left arm pain and left-sided chest discomfort. HISTORY OF PRESENT ILLNESS: This is a 51-year-old gentleman with past medical history of diabetic m ellitus, history of colon cancer, status post colon resection and chemotherapy x7 in 2014 who was fo llowed with Dr. Jerson Joy, central office operator supervisor/oncologist as outpatient who has been doing fairly well and presented to [facility] today secondary to having generalized weakness, abdom inal discomfort, chest discomfort and left shoulder discomfort. Upon arrival to ER, the patient's E KG demonstrated normal sinus rhythm, no ectopy, no abnormality, no ST elevation or depression, no si gn of ischemia. Chest x-ray was obtained which showed moderate elevation of right hemidiaphragm wit h associated right basilar atelectasis, pulmonary nodules and mediastinal adenopathy. CT of the bra in showed no acute intracranial hemorrhage, transcortical infarction or mass; mild chronic small-ves paxton ischemic change and mild generalized cerebral volume loss. CTA of the chest and thorax was obta ined which showed no evidence of aortic aneurysm dissection; no evidence of central pulmonary emboli ; moderate mediastinal perivascular space and retrosternal lymphadenopathy; numerous bilateral nonca lcified pulmonary nodules consistent with metastases; extensive and homogeneous ill-defined low-dens ity lesion involving the right and left lobe of the liver consistent with malignancy, likely metasta sis, multifocal hepatocellular carcinoma cannot be excluded; finding suggestive of cirrhosis. The p atient's glucose was found to be 574. Troponin was found to be negative at 0.02. The patient was t reated with lorazepam, 7 units of lispro, normal saline, nitroglycerin and aspirin, and at this time the patient admits that the chest discomfort has been improving, although he denies having any feve r, chills, weight gain, weight loss. Anorexia ____, positive for decreased appetite. No nausea, vo miting. No headache, dizziness, lightheadedness. No change in visual acuity. No change in the col or of stool. No abdominal pain. No nausea, vomiting. No dysuria, hematuria, urgency, incontinence . No recent travel history. No sick contact. No hair loss ____ any other discomfort except what i s stated above. PAST MEDICAL AND SURGICAL HISTORY: As above per HPI. MEDICATION: Metformin. ALLERGIES: NO KNOWN DRUG ALLERGIES. FAMILY HISTORY: Positive for diabetes mellitus. SOCIAL HISTORY: Negative for smoking. He drinks alcohol occasionally. No illicit drugs. He is a bumper and painter. REVIEW OF SYSTEMS: As above per HPI. Otherwise, 12 review of systems have been to be negative. PHYSICAL EXAMINATION: VITAL SIGNS: Temperature 98.8, pulse 79, respiration rate 30, blood pressure 133/65, saturation 98% in room air. GENERAL APPEARANCE: The patient is lying in bed comfortably without any distress. He is awake, barry rt, oriented. He is able to answer my questions properly. EYES, EARS, NOSE, THROAT: Conjunctivae, lids are normal. Pupils are normal. Extraocular normal. Hearing grossly normal. Lips and tongue normal. Oral mucosa is moist. NECK: Supple. Trachea is midline. No lymphadenopathy. RESPIRATORY: Effort is normal. Clear to auscultation bilaterally. CARDIOVASCULAR: Normal S1, S2. Regular rhythm and rate. No murmur. No bruits, edema. Peripheral pulses, radial pulses palpable. Capillary refill is normal. CHEST: Normal expansion of thorax during inspiration. GASTROINTESTINAL: Abdomen soft, nontender, not distended. Bowel sounds are present. No guarding o r rebound. There is a scar from previous surgery which is well healed. GENITOURINARY: Deferred. MUSCULOSKELETAL: Upper, lower extremities within normal limits. Full range of motion. Strength 5/ 5, both upper and lower extremities. NEUROLOGIC: Cranial nerves II-XII are grossly intact. PSYCHIATRIC: Normal judgment, insight. Alert and oriented x3. Mood and affect are normal. LABORATORY WORK: Sodium ____, potassium 4.0, chloride 91, bicarbonate 22, BUN 11, creatinine 0.64, glucose 574, calcium 8.6, phosphorus 2.8, magnesium 2.0. Total bilirubin 0.4, direct bilirubin 0 an d indirect bilirubin 0.4, AST 64, ALT 29, alkaline phosphatase of 300, lipase 680, albumin 2.7. WBC of 14.4, hemoglobin 10.3, hematocrit 32.3, platelets 307. PT 15.4, INR 1.21, PTT 37.1. ASSESSMENT AND PLAN: 1. Atypical chest pain. The patient's troponin is negative. EKG is negative. Will obtain 2D echo cardiogram. The patient has been started on aspirin. Will follow up lipid panel. 2. Incidental finding of lung mass. Pulmonology has been consulted. Hematology/Oncology has been consulted. 3. Incidental finding of left lobe of the liver consistent with malignancy, likely metastasis. Gen eral Surgery and Hematology/Oncology have been consulted. Will follow up their recommendation. 4. Diabetes mellitus, uncontrolled. The patient has been placed on insulin sliding scale, low-carb ohydrate diet and will also start the patient on low dose of Lantus, follow hemoglobin A1c. If the patient is able to tolerate oral intake, will place the patient on low-carbohydrate diet. 5. Anemia. Follow up folic acid, Vitamin B12, iron panel. Will continue to monitor. 6. For deep venous thrombosis prophylaxis, SCD. 7. For gastrointestinal prophylaxis, on Pepcid. We will continue to monitor patient closely. Further recommendations, management and treatment as p er ____. Dictated By: SAMUEL GAONA/JR Conf#: [id number] DID#: [id number]
[2016-10-16 07:32] LABS: HAAIG REFLEX REFLEX FILED
[2016-10-16 08:13] LABS: RETICULOCYTE COUNT % 2.1 % (0.5-1.5)
[2016-10-16 08:47] LABS: HEPATITIS B CORE ANTIBODY NEGATIVE (NEGATIVE)
[2016-10-16] MEDS: FAMOTIDINE 20 MG INJ IV SCH ×2 (09:04→20:48)
[2016-10-16] MEDS: ACETAMINOPHEN 325 MG TAB PO PRN ×2 (09:04→20:57)
[2016-10-16 10:11] LABS: ADD SCAN DIFF NO
[2016-10-16 10:18] LABS: IRON < 10 ug/dl (35-150)
[2016-10-16 10:20] LABS: ALBUMIN 2.4 g/dl (3.3-4.9); ALBUMIN/GLOBULIN RATIO 0.7; BILIRUBIN,INDIRECT 0.2 mg/dl (0-1.1); BILIRUBIN,TOTAL 0.2 mg/dl (0.2-1.3); CALCIUM 7.9 mg/dl (8.4-10.2); CHOL/HDL RATIO 7.1 RATIO; CREATININE 0.54 mg/dl (0.61-1.24); POTASSIUM 4.6 mmol/L (3.5-5.1); TOTAL PROTEIN 5.8 g/dl (6.1-8.1)
[2016-10-16 10:30] LABS: TOTAL IRON BINDING CAPACITY 154 ug/dl (241-421)
[2016-10-16] MEDS ORDERED: IODIXANOL LOCM 100 ML BTL ONE (10:39)
[2016-10-16] MEDS ORDERED: SOD CHLORIDE 0.9% 100 ML ONE (10:39)
[2016-10-16] MEDS ORDERED: IODIXANOL LOCM 50 ML BTL ONE (10:40)
[2016-10-16 10:53] LABS: THYROID STIMULATING HORMONE 1.4 MIU/L (0.465-4.680)
[2016-10-16 11:21] LABS: BASOPHILS % 0.3 % (0.0-2.0); EOSINOPHILS # 0.1 10^3/ul (0.0-0.5); EOSINOPHILS % 0.6 % (0.0-7.0); HEMATOCRIT 29.2 % (42.0-52.0); HEMOGLOBIN 9.5 g/dl (14.0-18.0); LYMPHOCYTES # 0.9 10^3/ul (0.8-2.9); LYMPHOCYTES % 7.2 % (15.0-51.0); MEAN CORPUSCULAR HEMOGLOBIN 29.9 pg (29.0-33.0); MEAN CORPUSCULAR HGB CONC 32.5 g/dl (32.0-37.0); MEAN CORPUSCULAR VOLUME 91.8 fl (82.0-101.0); MEAN PLATELET VOLUME 11.4 fl (7.4-10.4); MONOCYTE # 0.7 10^3/ul (0.3-0.9); MONOCYTES % 5.4 % (0.0-11.0); NEUTROPHIL # 10.4 10^3/ul (1.6-7.5); NEUTROPHILS % 85.7 % (39.0-77.0); PLATELET COUNT 297 10^3/UL (140-415); RED BLOOD COUNT 3.18 10^6/ul (4.70-6.10); RED CELL DISTRIBUTION WIDTH 13.9 % (11.5-14.5); WHITE BLOOD COUNT 12.1 10^3/ul (4.8-10.8)
--- NOTE | 2016-10-16 12:51 | RADRPT ---
PROCEDURE: CT Abdomen with and without contrast. CLINICAL INDICATION: Liver mass. Rule out metastases. Abnormal CT chest. TECHNIQUE: CT scan of the abdomen with and without contrast was performed on a multidetector high- resolution CT scanner. The patient was scanned both before and following the uncomplicated intraven ous administration of 125 cc of Visipaque 320 IV contrast. Multiphase imaging of the liver was perf ormed. Coronal and sagittal reformatted images were obtained from the axial source images. Images w ere reviewed on a high-resolution PACS workstation. The total exam CTDI equals 15.02, 15.31, 18.43, 13.03 mGy and the total exam DLP equals 3053.62 mGy-cm. One or more of the following dose reduction techniques were used: - Automated exposure control. - Adjustment of the mA and/or kV according to patient size. - Use of iterative reconstruction technique. COMPARISON: CTA chest dated 10/15/2016 FINDINGS: CT abdomen: The lung bases are remarkable for multiple pulmonary nodules consistent with widespread diffuse meta static disease. There is elevation of the right hemidiaphragm with dense right basilar atelectasis. Please refer to CT chest report performed 1 day earlier. The heart size is normal, without perica rdial thickening or effusion. Significant right pericardiophrenic recess lymphadenopathy is seen. P osterior pericardiac adenopathy is also present, again as seen on the previous CT scan. The liver is mildly enlarged and severely involved with diffuse extensive hepatic metastases. Innum erable metastases are seen scattered throughout the liver. There is essentially near complete repla cement of the entire left lobe of the liver. There is a large metastasis in the anterior superior d ome of the right liver measuring 4.4 cm in dimension. There is another large metastasis along the p osterior subcapsular margin of the posterior right lobe liver measuring 5.2 cm in dimension. Widesp read diffuse metastatic disease is clearly present. At this time, there is enhancement of the valeri l vein and hepatic veins. No significant intrahepatic biliary dilatation is seen. The spleen is normal in size and homogeneous in density. The stomach is partially collapsed, but is grossly unremarkable. The pancreas as visualized is normal. The gallbladder and biliary tree are unremarkable and there is no evidence for biliary dilatation. The adrenal glands are symmetric and normal. The kidneys are symmetrically unremarkable as well. No renal calculus or obstructive uropa thy or mass lesion is seen. The aorta is of normal caliber. Aortic vascular calcifications are present. Significant valeri hepat is and upper epigastric and upper retroperitoneal lymphadenopathy is identified. The largest lymph node is located in the retrocaval space measuring approximately 2.5 cm in short axis dimension. Rig ht retrocrural lymphadenopathy is seen as well. Again, findings are consistent with diffuse lymphat ic spread of neoplasm. The bowel and mesentery, as visualized, are equally unremarkable. The pelvis was not imaged. The surrounding osseous structures are remarkable for degenerative spondy losis of the spine. No osteolytic or osteoblastic lesion is detected. IMPRESSION: 1. Widespread diffuse hepatic metastases. 2. Widespread diffuse pulmonary metastases. 3. Diffuse lymphatic spread of neoplasm to the retroperitoneal, retrocrural, valeri hepatis, epigast harman, and pericardiac lymph node stations. 4. Further evaluation of the pelvis region is warranted. In addition, please consider colonoscopy to exclude underlying subtle colon cancer. RPTAT: HMJB .Harris Felix MD, MD Date Time Electronically viewed and signed by .Harris Felix MD, on 10/16/2016 12:51 .B/
[2016-10-16 13:38] LABS: CARCINOEMBRYONIC ANTIGEN 38.8 ng/ml (0.0-5.0)
[2016-10-16 13:42] LABS: CANCER ANTIGEN 19-9 46.4 U/ml (0.0-37.0)
--- NOTE | 2016-10-16 14:22 | CONS ---
Date/Time of Note Date/Time of Note DATE: 10/16/16 TIME: 14:21 Consult Date/Type/Reason Admit Date/Time Oct 15, 2016 at 12:31 Initial Consult Date 10/15/16 Type of Consultation: pulmonary Subjective Patient awake alert and oriented this morning comfortable at rest no acute distress Objective Vital Signs Date Time Temp Pulse Resp B/P Pulse Ox O2 Delivery O2 Flow Rate FiO2 10/16/16 12:15 87 10/16/16 04:00 98.1 21 142/79 98 10/15/16 19:34 Room Air Intake and Output 10/15/16 10/15/16 10/16/16 15:00 23:00 07:00 Intake Total 400 ml 800 ml Output Total 200 ml 1100 ml Balance 200 ml -300 ml Exam PHYSICAL EXAMINATION: GENERAL: Elderly-appearing gentleman, appears comfortable at rest, no acute distress. VITAL SIGNS: As above NECK: Supple. No JVD or lymphadenopathy. CARDIAC: S1, S2. No added sounds or murmurs. CHEST: Diminished air entry bilaterally. ABDOMEN: Soft, nontender. No guarding or rebound. EXTREMITIES: No cyanosis, clubbing, edema. NEUROLOGIC: Generalized weakness. Results/Medications Result Diagram: 10/16/16 0655 10/16/16 0655 Results 24 hrs Laboratory Tests Test 10/15/16 15:18 10/15/16 15:20 10/15/16 18:49 10/15/16 20:49 Bedside Glucose 280 H 201 263 H Creatine Kinase 151 Creatine Kinase Index 0.2 Creatinine Kinase MB (Mass) 0.27 Troponin I < 0.012 Test 10/15/16 21:13 10/16/16 02:02 10/16/16 06:55 10/16/16 07:16 Creatine Kinase 148 Creatine Kinase Index 0.1 Creatinine Kinase MB (Mass) < 0.22 Troponin I < 0.012 Bedside Glucose 190 210 White Blood Count 12.1 H Red Blood Count 3.18 L Hemoglobin 9.5 L Hematocrit 29.2 L Mean Corpuscular Volume 91.8 Mean Corpuscular Hemoglobin 29.9 Mean Corpuscular Hemoglobin Concent 32.5 Red Cell Distribution Width 13.9 Platelet Count 297 Mean Platelet Volume 11.4 H Neutrophils % 85.7 H Lymphocytes % 7.2 L Monocytes % 5.4 Eosinophils % 0.6 Basophils % 0.3 Nucleated Red Blood Cells % 0.0 Neutrophils # 10.4 H Lymphocytes # 0.9 Monocytes # 0.7 Eosinophils # 0.1 Basophils # 0.0 Nucleated Red Blood Cells # 0.0 Absolute Reticulocyte Count 0.066 Percent Reticulocyte Count 2.1 H Sodium Level 131 L Potassium Level 4.6 Chloride Level 105 # Carbon Dioxide Level 22 Anion Gap 9 # Blood Urea Nitrogen 8 Creatinine 0.54 L Glucose Level 218 # Hemoglobin A1c 11.8 H Calcium Level 7.9 L Magnesium Level 2.0 Iron Level < 10 L Total Iron Binding Capacity 154 L Percent Iron Saturation Ferritin 673.0 H Total Bilirubin 0.2 Direct Bilirubin 0.00 Indirect Bilirubin 0.2 Aspartate Amino Transf (AST/SGOT) 50 H Alanine Aminotransferase (ALT/SGPT) 33 Alkaline Phosphatase 260 H Lactate Dehydrogenase 2209 H Total Protein 5.8 L Albumin 2.4 L Globulin 3.40 H Albumin/Globulin Ratio 0.70 Triglycerides Level 166 H Cholesterol Level 164 LDL Cholesterol, Calculated 108 HDL Cholesterol 23 L Cholesterol/HDL Ratio 7.1 Amylase Level 32 Lipase 71 Alpha Fetoprotein 1.63 Carcinoembryonic Antigen 38.8 H CA 19-9 Antigen 46.4 H Thyroid Stimulating Hormone (TSH) 1.400 Hepatitis B Surface Antigen NEGATIVE Hepatitis B Core Total Antibody NEGATIVE Hepatitis C Antibody NEGATIVE HIV (1&2) Antibody NEGATIVE Test 10/16/16 08:36 10/16/16 12:41 Bedside Glucose 214 251 H Medications Current Medications Insulin Aspart NOVOLOG *MILD* ALGORI... Q4 SC Last administered on 10/16/16 12 :45; Admin Dose 3 UNIT; Start 10/15/16 at 17:00 Sodium Chloride (NS) 1,000 ml @ 100 mls/hr Q10H IV Last administered on 11:39; Admin Dose 100 MLS/HR; Start 10/15/16 at 15:04 Ondansetron HCl (Zofran Inj) 4 mg Q6H PRN IV NAUSEA AND/OR VOMITING; Start at 15:30 Acetaminophen (Tylenol Tab) 650 mg Q6H PRN PO PAIN LEVEL 1-3 OR FEVER Last administered on 10/16/16 09:04; Admin Dose 650 MG; Start 10/15/16 at 15:30 Acetaminophen/ Hydrocodone Bitart ([place] (5/325)) 1 tab Q6H PRN PO MODERATE PAIN LEVEL 4-6; Start 10/15/16 at 15:30 Morphine Sulfate (morphine) 1 mg Q4H PRN IV SEVERE PAIN LEVEL 7-10; Start 10/15 at 15:30 Docusate Sodium (Colace) 100 mg Q12H PRN PO CONSTIPATION; Start 10/15/16 at 15: 30 Bisacodyl (Dulcolax) 5 mg DAILY PRN PO CONSTIPATION; Start 10/15/16 at 15:30 Famotidine 20 mg 20 mg Q12 IV Last administered on 10/16/16 09:04; Admin Dose 20 MG; Start 10/15/16 at 21:00 Ceftriaxone Sodium (Rocephin) 50 ml @ 100 mls/hr Q24H IVPB Last administered on 10/15/16 16:00; Admin Dose 100 MLS/HR; Start 10/15/16 at 16:00 Miscellaneous Information 1 ea NOTE XX ; Start 10/15/16 at 15:30 Glucose (Glutose) 15 gm Q15M PRN PO DECREASED GLUCOSE; Start 10/15/16 at 15:30 Glucose (Glutose) 22.5 gm Q15M PRN PO DECREASED GLUCOSE; Start 10/15/16 at 15: 30 Dextrose (D50w Syringe) 25 ml Q15M PRN IV DECREASED GLUCOSE; Start 10/15/16 at 15:30 Dextrose (D50w Syringe) 50 ml Q15M PRN IV DECREASED GLUCOSE; Start 10/15/16 at 15:30 Glucagon (Glucagen) 1 mg Q15M PRN IM DECREASED GLUCOSE; Start 10/15/16 at 15:30 Glucose (Glutose) 15 gm Q15M PRN BUCCAL DECREASED GLUCOSE; Start 10/15/16 at 15 :30 Insulin Glargine (Lantus) 5 unit DAILY@20 SC Last administered on 10/15/16 20: 56; Admin Dose 5 UNIT; Start 10/15/16 at 20:00 Assessment/Plan Chief Complaint/Hosp Course Assessment 1. History of colorectal cancer now with evidence of extensive metastatic disease 2. Anemia likely of chronic disease 3. Altered mental status now improved likely toxic metabolic encephalopathy Plan 1. Continue hemoglobin recommendations tumor markers pending 2. Consider discharge soon follow-up with Dr. Joy his regular oncologist 3. DVT GI prophylaxis Problems: DANIELE HALLMAN [facility], [facility] Oct 16, 2016 14:22
--- NOTE | 2016-10-16 15:35 | PN ---
Date/Time of Note Date/Time of Note DATE: 10/16/16 TIME: 15:28 Assessment/Plan VTE Prophylaxis VTE Prophylaxis Intervention: SCD's Lines/Catheters IV Catheter Type (from [facility]): Peripheral IV Urinary Cath still in place: No Assessment/Plan Chief Complaint/Hosp Course ASSESSMENT AND PLAN: 1. Atypical chest pain. Acute coronary syndrome was ruled out by negative troponin. EKG is negative. Follow up 2D echocardiogram. Continue aspirin 2. Incidental finding of lung mass. Pulmonology has been consulted. Hematology/Oncology has been consulted. 3. Incidental finding of left lobe of the liver consistent with malignancy, likely metastasis from colon. General Surgery and Hematology/Oncology have been consulted. Waiting for biopsy and follow up results of pathology 4. Diabetes mellitus, better controlled. Continue Lantus, insulin sliding scale, when the patient is able to tolerate oral intake, will place the patient on low-carbohydrate diet. 5. Anemia. Will continue to monitor. 6. For deep venous thrombosis prophylaxis, SCD. 7. For gastrointestinal prophylaxis, on Pepcid. We will continue to monitor patient closely. Further recommendations, management and treatment as per ____. Problems: Subjective 24 Hr Interval Summary Free Text/Dictation Patient continues to complain of having mild generalized weakness and pain No nausea vomiting diarrhea Exam/Review of Systems Vital Signs Vitals Vital Signs Date Time Temp Pulse Resp B/P Pulse Ox O2 Delivery O2 Flow Rate FiO2 10/16/16 12:15 87 10/16/16 12:05 98.6 20 142/81 97 Room Air Intake and Output 10/15/16 10/15/16 10/16/16 15:00 23:00 07:00 Intake Total 400 ml 800 ml Output Total 200 ml 1100 ml Balance 200 ml -300 ml Exam General: The patient is well-developed, Not in acute distress. HEENT: Atraumatic, normocephalic. The pupils are equal and round . Neck: Supple with full range of motion. Chest: Normal expansion of the thorax during inspiration Lungs: Clear to auscultation bilaterally Heart: Normal S1-S2, Regular rhythm and rate. Abdomen: Soft , nontender, nondistended , bowel sounds are present. Extremities: Normal to inspection, no edema no cyanosis Neurologic: Normal mental status,The patient is awake, alert and oriented . Results Result Diagram: 10/16/1665410/16/16 0655 Results 24 hrs Laboratory Tests Test 10/15/16 18:49 10/15/16 20:49 10/15/16 21:13 10/16/16 02:02 Bedside Glucose 201 263 H 190 Creatine Kinase 148 Creatine Kinase Index 0.1 Creatinine Kinase MB (Mass) < 0.22 Troponin I < 0.012 Test 10/16/16 06:55 10/16/16 07:16 10/16/16 08:36 10/16/16 12:41 White Blood Count 12.1 H Red Blood Count 3.18 L Hemoglobin 9.5 L Hematocrit 29.2 L Mean Corpuscular Volume 91.8 Mean Corpuscular Hemoglobin 29.9 Mean Corpuscular Hemoglobin Concent 32.5 Red Cell Distribution Width 13.9 Platelet Count 297 Mean Platelet Volume 11.4 H Neutrophils % 85.7 H Lymphocytes % 7.2 L Monocytes % 5.4 Eosinophils % 0.6 Basophils % 0.3 Nucleated Red Blood Cells % 0.0 Neutrophils # 10.4 H Lymphocytes # 0.9 Monocytes # 0.7 Eosinophils # 0.1 Basophils # 0.0 Nucleated Red Blood Cells # 0.0 Absolute Reticulocyte Count 0.066 Percent Reticulocyte Count 2.1 H Sodium Level 131 L Potassium Level 4.6 Chloride Level 105 # Carbon Dioxide Level 22 Anion Gap 9 # Blood Urea Nitrogen 8 Creatinine 0.54 L Glucose Level 218 # Hemoglobin A1c 11.8 H Calcium Level 7.9 L Magnesium Level 2.0 Iron Level < 10 L Total Iron Binding Capacity 154 L Percent Iron Saturation Ferritin 673.0 H Total Bilirubin 0.2 Direct Bilirubin 0.00 Indirect Bilirubin 0.2 Aspartate Amino Transf (AST/SGOT) 50 H Alanine Aminotransferase (ALT/SGPT) 33 Alkaline Phosphatase 260 H Lactate Dehydrogenase 2209 H Total Protein 5.8 L Albumin 2.4 L Globulin 3.40 H Albumin/Globulin Ratio 0.70 Triglycerides Level 166 H Cholesterol Level 164 LDL Cholesterol, Calculated 108 HDL Cholesterol 23 L Cholesterol/HDL Ratio 7.1 Amylase Level 32 Lipase 71 Alpha Fetoprotein 1.63 Carcinoembryonic Antigen 38.8 H CA 19-9 Antigen 46.4 H Vitamin B12 Level 431 Folate Pending Thyroid Stimulating Hormone (TSH) 1.400 Hepatitis B Surface Antigen NEGATIVE Hepatitis B Core Total Antibody NEGATIVE Hepatitis C Antibody NEGATIVE HIV (1&2) Antibody NEGATIVE Bedside Glucose 210 214 251 H Medications Medications Current Medications Insulin Aspart NOVOLOG *MILD* ALGORI... Q4 SC Last administered on 10/16/16 12 :45; Admin Dose 3 UNIT; Start 10/15/16 at 17:00 Sodium Chloride (NS) 1,000 ml @ 100 mls/hr Q10H IV Last administered on 11:39; Admin Dose 100 MLS/HR; Start 10/15/16 at 15:04 Ondansetron HCl (Zofran Inj) 4 mg Q6H PRN IV NAUSEA AND/OR VOMITING; Start at 15:30 Acetaminophen (Tylenol Tab) 650 mg Q6H PRN PO PAIN LEVEL 1-3 OR FEVER Last administered on 10/16/16 09:04; Admin Dose 650 MG; Start 10/15/16 at 15:30 Acetaminophen/ Hydrocodone Bitart ([place] (5/325)) 1 tab Q6H PRN PO MODERATE PAIN LEVEL 4-6; Start 10/15/16 at 15:30 Morphine Sulfate (morphine) 1 mg Q4H PRN IV SEVERE PAIN LEVEL 7-10; Start 10/15 at 15:30 Docusate Sodium (Colace) 100 mg Q12H PRN PO CONSTIPATION; Start 10/15/16 at 15: 30 Bisacodyl (Dulcolax) 5 mg DAILY PRN PO CONSTIPATION; Start 10/15/16 at 15:30 Famotidine 20 mg 20 mg Q12 IV Last administered on 10/16/16 09:04; Admin Dose 20 MG; Start 10/15/16 at 21:00 Ceftriaxone Sodium (Rocephin) 50 ml @ 100 mls/hr Q24H IVPB Last administered on 10/15/16 16:00; Admin Dose 100 MLS/HR; Start 10/15/16 at 16:00 Miscellaneous Information 1 ea NOTE XX ; Start 10/15/16 at 15:30 Glucose (Glutose) 15 gm Q15M PRN PO DECREASED GLUCOSE; Start 10/15/16 at 15:30 Glucose (Glutose) 22.5 gm Q15M PRN PO DECREASED GLUCOSE; Start 10/15/16 at 15: 30 Dextrose (D50w Syringe) 25 ml Q15M PRN IV DECREASED GLUCOSE; Start 10/15/16 at 15:30 Dextrose (D50w Syringe) 50 ml Q15M PRN IV DECREASED GLUCOSE; Start 10/15/16 at 15:30 Glucagon (Glucagen) 1 mg Q15M PRN IM DECREASED GLUCOSE; Start 10/15/16 at 15:30 Glucose (Glutose) 15 gm Q15M PRN BUCCAL DECREASED GLUCOSE; Start 10/15/16 at 15 :30 Insulin Glargine (Lantus) 5 unit DAILY@20 SC Last administered on 10/15/16t 20: 56; Admin Dose 5 UNIT; Start 10/15/16 at 20:00 SAMUEL JOHNSTON MD Oct 16, 2016 15:35
[2016-10-16 15:45] LABS: FOLATE 9.6 ng/ml (2.8-20.0)
--- NOTE | 2016-10-16 15:58 | CONS ---
Date/Time of Note Date/Time of Note DATE: 10/16/16 TIME: 15:53 Assessment/Plan Assessment/Plan Chief Complaint/Hosp Course The patient is a 51 year old male previously treated by Dr. Joy (need to verify prior cancer history an treatment course with Dr. Joy) with a history of alcoholic cirrhosis, DM, history of colorectal cancer status post surgery, chemo and radiation per patient's in 2015, now presenting with new metastatic disease to the liver and lung. CT reveals moderate mediastinal, prevascular space and retrosternal lymphadenopathy, numerous bilateral noncalcified pulmonary nodules up to 1.3 cm consistent with metastasis, and extensive inhomogeneous ill-defined low density lesions involving the right left lobes of the liver consistent with malignancy likely metastasis though multi focal hepatic cellular carcinoma cannot be excluded with findings suggestive of cirrhosis. - Requesting records from Dr. Joy's office - Liver/lung lesions concerning for metastatic colorectal cancer with CT A/P multiphase demonstrating 1. Widespread diffuse hepatic metastases. 2. Widespread diffuse pulmonary metastases. 3. Diffuse lymphatic spread of neoplasm to the retroperitoneal, retrocrural, valeri hepatis, epigastric, and pericardiac lymph node stations. - Plan for liver biopsy to confirm metastatic colorectal cancer. Once confirmed , would discuss treatment options with patient and consider port placement with inpatient or outpatient chemo and f/u with Dr. Joy - CEA elevated at 38.8 (normal 0-5), CA 19-9 mildly elevated at 46.4, AFP normal at 1.63 - HIV, hep panel neg # Normocytic anemia - Iron panel consistent with anemia of chronic inflammation - Vitamin B12 normal, pending folate, TSH WNL, retic count inappropriately low; LDH elevated at 2209 likely due to metastatic cancer, will check haptoglobin Will continue to follow Problems: Consultation Date/Type/Reason Admit Date/Time Oct 15, 2016 at 12:31 Initial Consult Date 10/15/16 Type of Consultation: Oncology 24 HR Interval Summary Free Text/Dictation Patient denies complaints. No pain. Exam/Review of Systems Vital Signs Vitals Vital Signs Date Time Temp Pulse Resp B/P Pulse Ox O2 Delivery O2 Flow Rate FiO2 10/16/16 12:15 87 10/16/16 12:05 98.6 20 142/81 97 Room Air Intake and Output 10/15/16 10/15/16 10/16/16 15:00 23:00 07:00 Intake Total 400 ml 800 ml Output Total 200 ml 1100 ml Balance 200 ml -300 ml Exam Constitutional: oriented Psych: no complaints Head: normocephalic Eyes: nl conjunctiva Respiratory: clear to auscultation Cardiovascular: regular rate and rhythm Gastrointestinal: soft, tender (suprapubic tenderness) Musculoskeletal: nl extremities to inspection Neurological: CANDLE MAKER II-XII intact Results Result Diagram: 10/16/16 0655 10/16/16 0655 Results 24 hrs Laboratory Tests Test 10/15/16 18:49 10/15/16 20:49 10/15/16 21:13 10/16/16 02:02 Bedside Glucose 201 263 H 190 Creatine Kinase 148 Creatine Kinase Index 0.1 Creatinine Kinase MB (Mass) < 0.22 Troponin I < 0.012 Test 10/16/16 06:55 10/16/16 07:16 10/16/16 08:36 10/16/16 12:41 White Blood Count 12.1 H Red Blood Count 3.18 L Hemoglobin 9.5 L Hematocrit 29.2 L Mean Corpuscular Volume 91.8 Mean Corpuscular Hemoglobin 29.9 Mean Corpuscular Hemoglobin Concent 32.5 Red Cell Distribution Width 13.9 Platelet Count 297 Mean Platelet Volume 11.4 H Neutrophils % 85.7 H Lymphocytes % 7.2 L Monocytes % 5.4 Eosinophils % 0.6 Basophils % 0.3 Nucleated Red Blood Cells % 0.0 Neutrophils # 10.4 H Lymphocytes # 0.9 Monocytes # 0.7 Eosinophils # 0.1 Basophils # 0.0 Nucleated Red Blood Cells # 0.0 Absolute Reticulocyte Count 0.066 Percent Reticulocyte Count 2.1 H Sodium Level 131 L Potassium Level 4.6 Chloride Level 105 # Carbon Dioxide Level 22 Anion Gap 9 # Blood Urea Nitrogen 8 Creatinine 0.54 L Glucose Level 218 # Hemoglobin A1c 11.8 H Calcium Level 7.9 L Magnesium Level 2.0 Iron Level < 10 L Total Iron Binding Capacity 154 L Percent Iron Saturation Ferritin 673.0 H Total Bilirubin 0.2 Direct Bilirubin 0.00 Indirect Bilirubin 0.2 Aspartate Amino Transf (AST/SGOT) 50 H Alanine Aminotransferase (ALT/SGPT) 33 Alkaline Phosphatase 260 H Lactate Dehydrogenase 2209 H Total Protein 5.8 L Albumin 2.4 L Globulin 3.40 H Albumin/Globulin Ratio 0.70 Triglycerides Level 166 H Cholesterol Level 164 LDL Cholesterol, Calculated 108 HDL Cholesterol 23 L Cholesterol/HDL Ratio 7.1 Amylase Level 32 Lipase 71 Alpha Fetoprotein 1.63 Carcinoembryonic Antigen 38.8 H CA 19-9 Antigen 46.4 H Vitamin B12 Level 431 Folate 9.6 Thyroid Stimulating Hormone (TSH) 1.400 Hepatitis B Surface Antigen NEGATIVE Hepatitis B Core Total Antibody NEGATIVE Hepatitis C Antibody NEGATIVE HIV (1&2) Antibody NEGATIVE Bedside Glucose 210 214 251 H Medications Medications Current Medications Insulin Aspart NOVOLOG *MILD* ALGORI... Q4 SC Last administered on 10/16/16 12 :45; Admin Dose 3 UNIT; Start 10/15/16 at 17:00 Sodium Chloride (NS) 1,000 ml @ 100 mls/hr Q10H IV Last administered on 11:39; Admin Dose 100 MLS/HR; Start 10/15/16 at 15:04 Ondansetron HCl (Zofran Inj) 4 mg Q6H PRN IV NAUSEA AND/OR VOMITING; Start at 15:30 Acetaminophen (Tylenol Tab) 650 mg Q6H PRN PO PAIN LEVEL 1-3 OR FEVER Last administered on 10/16/16 09:04; Admin Dose 650 MG; Start 10/15/16 at 15:30 Acetaminophen/ Hydrocodone Bitart ([place] (5/325)) 1 tab Q6H PRN PO MODERATE PAIN LEVEL 4-6; Start 10/15/16 at 15:30 Morphine Sulfate (morphine) 1 mg Q4H PRN IV SEVERE PAIN LEVEL 7-10; Start 10/15 at 15:30 Docusate Sodium (Colace) 100 mg Q12H PRN PO CONSTIPATION; Start 10/15/16 at 15: 30 Bisacodyl (Dulcolax) 5 mg DAILY PRN PO CONSTIPATION; Start 10/15/16 at 15:30 Famotidine 20 mg 20 mg Q12 IV Last administered on 10/16/16 09:04; Admin Dose 20 MG; Start 10/15/16 at 21:00 Ceftriaxone Sodium (Rocephin) 50 ml @ 100 mls/hr Q24H IVPB Last administered on 10/15/16 16:00; Admin Dose 100 MLS/HR; Start 10/15/16 at 16:00 Miscellaneous Information 1 ea NOTE XX ; Start 10/15/16 at 15:30 Glucose (Glutose) 15 gm Q15M PRN PO DECREASED GLUCOSE; Start 10/15/16 at 15:30 Glucose (Glutose) 22.5 gm Q15M PRN PO DECREASED GLUCOSE; Start 10/15/16 at 15: 30 Dextrose (D50w Syringe) 25 ml Q15M PRN IV DECREASED GLUCOSE; Start 10/15/16 at 15:30 Dextrose (D50w Syringe) 50 ml Q15M PRN IV DECREASED GLUCOSE; Start 10/15/16 at 15:30 Glucagon (Glucagen) 1 mg Q15M PRN IM DECREASED GLUCOSE; Start 10/15/16 at 15:30 Glucose (Glutose) 15 gm Q15M PRN BUCCAL DECREASED GLUCOSE; Start 10/15/16 at 15 :30 Insulin Glargine (Lantus) 8 unit DAILY@20 SC ; Start 10/16/16 at 20:00 ANA PAULA DE ANDA MD Oct 16, 2016 15:58
[2016-10-16] MEDS: CEFTRIAXONE 1 GM/50 ML (PMX) 50 ML IVPB SCH (16:41)
--- NOTE | 2016-10-16 16:47 | RADRPT ---
Echocardiogram Report Patient Name: MARY FARRAR Gender: Male Date: 1965 Study Date: 16-Oct-2016 Sports Medicine Physician: [facility] Location: 5551 Ref. Physician: SAMUEL JOHNSTON Quality: Adequate Procedures: Transthoracic echocardiogram with complete 2D, M-Mode, and doppler examination. Indications: LUNG AND LIVER MASS. 2D/M Mode Doppler Measurement Value Normal Ranges Measurement Value Normal Ranges LVIDd 2D 4.9 3.5 - 5.6 cm AV Peak Emmett 1.4 m/sec LVIDs 2D 3.0 2.1 - 4.1 cm AV Peak PG 7.6 mmHg LVPWd 2D 0.9 0.6 - 1.1 cm LVOT Peak Emmett 1.1 m/sec IVSd 2D 0.9 0.6 - 1.1 cm LVOT Peak PG 4.7 mmHg AoR Diam 2D 3.5 2.0 - 3.7 cm MV E Peak Emmett 1.0 m/sec EDV 2D 114.3 cm3 MV A Peak [place] 0.8 m/sec ESV 2D 26.0 cm3 MV E/A 1.2 MV Decel Time 189 msec MV Decel Bollinger 5 MV E/A 1.2 Findings Left Ventricle: Lower limits of normal systolic function. Normal left ventricular cavity size. Normal left ventricular wall thickness. Ejection fraction is visually estimated at 50 %. Abnormal Diastolic Function. Multiple segmental wall motion abnormalities. Right Ventricle: Normal right ventricular size. Normal right ventricular systolic function. Left Atrium: Upper limit of normal left atrial size. Right Atrium: The right atrium is normal in size. Mitral Valve: Mild mitral leaflet calcification. Mild mitral annular calcification. Trace mitral regurgitation. Aortic Valve: Aortic cusps appear mildly calcified. No aortic regurgitation. Tricuspid Valve: Tricuspid valve not well visualized. There is trace tricuspid regurgitation. Pulmonic Valve: There is trace pulmonic regurgitation. Pericardium: Normal pericardium with no significant pericardial effusion. Aorta: Normal aortic root. IVC: Normal size and normal respiratory collapse consistent with normal right atrial pressure. Conclusions 1.Lower limits of normal systolic function. Normal left ventricular cavity size. Normal left ventricular wall thickness. Ejection fraction is visually estimated at 50 %. Abnormal Diastolic Function. Multiple segmental wall motion abnormalities. 2.Mild mitral leaflet calcification. Mild mitral annular calcification. Trace mitral regurgitation. 3.Aortic cusps appear mildly calcified. No aortic regurgitation. 4.Tricuspid valve not well visualized. There is trace tricuspid regurgitation. Electronically Signed By: Kyler Roberts 16-Oct-2016 16:46:15 -0700 Patient Name: MARY FARRAR Study Date: 16-Oct-[id number]
[2016-10-16] MEDS ORDERED: INSULIN GLARGINE [LANtus] 3 ML PEN SC SCH (20:00)
[2016-10-17] VITALS (24 sets, daily range): BP systolic 70–145; BP diastolic 40–86; PULSE 74–95; RESP 16–28
[2016-10-17] MEDS: SOD CHLORIDE 0.9% 1,000 ML IV SCH ×4 (01:45→23:55)
[2016-10-17] MEDS: INSULIN ASPART [NOVOLOG] 3 ML PEN SC SCH ×6 (01:45→21:02)
[2016-10-17 07:56] LABS: ADD SCAN DIFF NO
[2016-10-17 08:02] LABS: BASOPHIL # 0.1 10^3/ul (0.0-0.1); BASOPHILS % 0.7 % (0.0-2.0); EOSINOPHILS # 0.2 10^3/ul (0.0-0.5); EOSINOPHILS % 1.7 % (0.0-7.0); HEMATOCRIT 30.3 % (42.0-52.0); HEMOGLOBIN 9.9 g/dl (14.0-18.0); LYMPHOCYTES # 0.8 10^3/ul (0.8-2.9); LYMPHOCYTES % 8.9 % (15.0-51.0); MEAN CORPUSCULAR HEMOGLOBIN 29.9 pg (29.0-33.0); MEAN CORPUSCULAR HGB CONC 32.7 g/dl (32.0-37.0); MEAN CORPUSCULAR VOLUME 91.5 fl (82.0-101.0); MONOCYTE # 0.5 10^3/ul (0.3-0.9); MONOCYTES % 5.4 % (0.0-11.0); NEUTROPHIL # 7.3 10^3/ul (1.6-7.5); NEUTROPHILS % 82.5 % (39.0-77.0); PLATELET COUNT 309 10^3/UL (140-415); RED BLOOD COUNT 3.31 10^6/ul (4.70-6.10); RED CELL DISTRIBUTION WIDTH 13.8 % (11.5-14.5); WHITE BLOOD COUNT 8.9 10^3/ul (4.8-10.8)
[2016-10-17 08:12] LABS: INR 1.15; PROTIME 14.7 Sec (12.2-14.2); PT RATIO 1.1
[2016-10-17 08:13] LABS: PARTIAL THROMBOPLASTIN TIME 38.1 Sec (25.0-35.0)
[2016-10-17 08:27] LABS: ALBUMIN 2.8 g/dl (3.3-4.9)
[2016-10-17 08:30] LABS: BILIRUBIN,INDIRECT 0.3 mg/dl (0-1.1); BILIRUBIN,TOTAL 0.3 mg/dl (0.2-1.3); CREATININE 0.57 mg/dl (0.61-1.24)
[2016-10-17 08:31] LABS: ALBUMIN/GLOBULIN RATIO 0.65; CALCIUM 8.5 mg/dl (8.4-10.2); MAGNESIUM 2.1 mg/dl (1.7-2.5); TOTAL PROTEIN 7.1 g/dl (6.1-8.1)
[2016-10-17] MEDS: FAMOTIDINE 20 MG INJ IV SCH (08:36)
[2016-10-17] MEDS ORDERED: FENTAnyl 50 MCG/ML VIAL ONE (09:43)
[2016-10-17] MEDS ORDERED: LIDOCAINE 1% (MDV) 20 ML INJ ONE (09:44)
[2016-10-17] MEDS ORDERED: MIDAZOLAM 1 MG/ML 2 ML INJ ONE (09:57)
[2016-10-17] MEDS ORDERED: LIDOCAINE 1% (MPF) 5 ML VIAL ONE (10:22)
[2016-10-17] MEDS: ACETAMINOPHEN 325 MG TAB PO PRN ×2 (11:26→19:54)
--- NOTE | 2016-10-17 12:24 | CONS ---
Date/Time of Note Date/Time of Note DATE: 10/17/16 TIME: 12:23 Assessment/Plan Assessment/Plan Chief Complaint/Hosp Course The patient is a 51 year old male previously treated by Dr. Joy (need to verify prior cancer history an treatment course with Dr. Joy) with a history of alcoholic cirrhosis, DM, history of colorectal cancer status post surgery, chemo and radiation per patient's in 2015, now presenting with new metastatic disease to the liver and lung. CT reveals moderate mediastinal, prevascular space and retrosternal lymphadenopathy, numerous bilateral noncalcified pulmonary nodules up to 1.3 cm consistent with metastasis, and extensive inhomogeneous ill-defined low density lesions involving the right left lobes of the liver consistent with malignancy likely metastasis though multi focal hepatic cellular carcinoma cannot be excluded with findings suggestive of cirrhosis. - Requesting records from Dr. Joy's office - Liver/lung lesions concerning for metastatic colorectal cancer with CT A/P multiphase demonstrating 1. Widespread diffuse hepatic metastases. 2. Widespread diffuse pulmonary metastases. 3. Diffuse lymphatic spread of neoplasm to the retroperitoneal, retrocrural, valeri hepatis, epigastric, and pericardiac lymph node stations. - Plan for liver biopsy today to confirm metastatic colorectal cancer. Once confirmed, would discuss treatment options with patient and consider port placement with inpatient or outpatient chemo and f/u with Dr. Joy - CEA elevated at 38.8 (normal 0-5), CA 19-9 mildly elevated at 46.4, AFP normal at 1.63 - HIV, hep panel neg # Normocytic anemia, improved from 9.5 to 9.9 - Iron panel consistent with anemia of chronic inflammation - Vitamin B12 normal, pending folate, TSH WNL, retic count inappropriately low; LDH elevated at 2209 likely due to metastatic cancer, will check haptoglobin Will continue to follow Problems: Consultation Date/Type/Reason Admit Date/Time Oct 15, 2016 at 12:31 Initial Consult Date 10/15/16 Type of Consultation: Oncology 24 HR Interval Summary Free Text/Dictation Patient had biopsy performed this morning. States that he has mild pain at the biopsy site, otherwise doing well. No other complaints. Exam/Review of Systems Vital Signs Vitals Vital Signs Date Time Temp Pulse Resp B/P Pulse Ox O2 Delivery O2 Flow Rate FiO2 10/17/16 12:19 90 10/17/16 12:00 98.2 16 94/65 98 10/16/16 16:00 Room Air Intake and Output 10/16/16 10/16/16 10/17/16 15:00 23:00 07:00 Intake Total 500 ml 3350 ml 1660 ml Output Total 2400 ml Balance 500 ml 3350 ml -740 ml Exam Constitutional: oriented Psych: no complaints Head: normocephalic Eyes: nl conjunctiva Respiratory: clear to auscultation Cardiovascular: regular rate and rhythm Gastrointestinal: soft, tender (suprapubic tenderness) Musculoskeletal: nl extremities to inspection Neurological: OPERATIONS SUPPORT REPRESENTATIVE II-XII intact Results Result Diagram: 10/17/16 0710 10/17/16 0710 Results 24 hrs Laboratory Tests Test 10/16/16 12:41 10/16/16 17:19 10/16/16 20:43 10/17/16 01:41 Bedside Glucose 251 H 247 H 200 170 Test 10/17/16 05:50 10/17/16 07:10 10/17/16 08:20 Bedside Glucose 175 203 White Blood Count 8.9 # Red Blood Count 3.31 L Hemoglobin 9.9 L Hematocrit 30.3 L Mean Corpuscular Volume 91.5 Mean Corpuscular Hemoglobin 29.9 Mean Corpuscular Hemoglobin Concent 32.7 Red Cell Distribution Width 13.8 Platelet Count 309 Mean Platelet Volume 11.0 H Neutrophils % 82.5 H Lymphocytes % 8.9 L Monocytes % 5.4 Eosinophils % 1.7 Basophils % 0.7 Nucleated Red Blood Cells % 0.0 Neutrophils # 7.3 Lymphocytes # 0.8 Monocytes # 0.5 Eosinophils # 0.2 Basophils # 0.1 Nucleated Red Blood Cells # 0.0 Prothrombin Time 14.7 H Prothrombin Time Ratio 1.1 INR International Normalized Ratio 1.15 Activated Partial Thromboplast Time 38.1 H Sodium Level 134 L Potassium Level 4.0 Chloride Level 101 Carbon Dioxide Level 23 Anion Gap 14 Blood Urea Nitrogen 8 Creatinine 0.57 L Glucose Level 206 Calcium Level 8.5 Magnesium Level 2.1 Total Bilirubin 0.3 Direct Bilirubin 0.00 Indirect Bilirubin 0.3 Aspartate Amino Transf (AST/SGOT) 48 H Alanine Aminotransferase (ALT/SGPT) 28 Alkaline Phosphatase 264 H Total Protein 7.1 # Albumin 2.8 L Globulin 4.30 H Albumin/Globulin Ratio 0.65 Medications Medications Current Medications Insulin Aspart NOVOLOG *MILD* ALGORI... Q4 SC Last administered on 10/17/16 12 :14; Admin Dose 3 UNIT; Start 10/15/16 at 17:00 Sodium Chloride (NS) 1,000 ml @ 100 mls/hr Q10H IV Last administered on 01:45; Admin Dose 100 MLS/HR; Start 10/15/16 at 15:04 Ondansetron HCl (Zofran Inj) 4 mg Q6H PRN IV NAUSEA AND/OR VOMITING Last administered on 10/17/16 11:23; Admin Dose 4 MG; Start 10/15/16 at 15:30 Acetaminophen (Tylenol Tab) 650 mg Q6H PRN PO PAIN LEVEL 1-3 OR FEVER Last administered on 10/17/16 11:26; Admin Dose 650 MG; Start 10/15/16 at 15:30 Acetaminophen/ Hydrocodone Bitart ([place] (5/325)) 1 tab Q6H PRN PO MODERATE PAIN LEVEL 4-6; Start 10/15/16 at 15:30 Morphine Sulfate (morphine) 1 mg Q4H PRN IV SEVERE PAIN LEVEL 7-10; Start 10/15 at 15:30 Docusate Sodium (Colace) 100 mg Q12H PRN PO CONSTIPATION; Start 10/15/16 at 15: 30 Bisacodyl (Dulcolax) 5 mg DAILY PRN PO CONSTIPATION; Start 10/15/16 at 15:30 Famotidine 20 mg 20 mg Q12 IV Last administered on 10/17/16 08:36; Admin Dose 20 MG; Start 10/15/16 at 21:00 Ceftriaxone Sodium (Rocephin) 50 ml @ 100 mls/hr Q24H IVPB Last administered on 10/16/16 16:41; Admin Dose 100 MLS/HR; Start 10/15/16 at 16:00 Miscellaneous Information 1 ea NOTE XX ; Start 10/15/16 at 15:30 Glucose (Glutose) 15 gm Q15M PRN PO DECREASED GLUCOSE; Start 10/15/16 at 15:30 Glucose (Glutose) 22.5 gm Q15M PRN PO DECREASED GLUCOSE; Start 10/15/16 at 15: 30 Dextrose (D50w Syringe) 25 ml Q15M PRN IV DECREASED GLUCOSE; Start 10/15/16 at 15:30 Dextrose (D50w Syringe) 50 ml Q15M PRN IV DECREASED GLUCOSE; Start 10/15/16 at 15:30 Glucagon (Glucagen) 1 mg Q15M PRN IM DECREASED GLUCOSE; Start 10/15/16 at 15:30 Glucose (Glutose) 15 gm Q15M PRN BUCCAL DECREASED GLUCOSE; Start 10/15/16 at 15 :30 Insulin Glargine (Lantus) 8 unit DAILY@20 SC Last administered on 10/16/16t 20: 47; Admin Dose 8 UNIT; Start 10/16/16 at 20:00 TOANA PAULA MD Oct 17, 2016 12:24
--- NOTE | 2016-10-17 12:35 | RADRPT ---
PROCEDURE: Ultrasound guided biopsy of a liver lesion CLINICAL INDICATION: Liver lesions seen on CT TECHNIQUE: Multiple sonographic images of the liver were obtained utilizing a grayscale and color-flow. The john ges were reviewed on a high-resolution PACS workstation. Versed and Fentanyl were administered by the nurse who monitored the patient. A site in the patient's RIGHT abdomen was selected and marked. The area was prepped and draped in the usual sterile fashion. 1% lidocaine was utilized paresthesia . An 18-gauge biopsy gun was advanced into an approximately 1.8 cm lesion in the superficial aspect of the right lobe of the liver. Four 18-gauge biopsies were obtained and submitted to a pathologist who deemed and the specimens to be adequate. One specimen was submitted in formalin. A sterile dressing was applied. The patient tolerated the procedure well. COMPARISON: CT abdomen/pelvis from 10/16/2016 FINDINGS: Multiple hepatic lesions concerning for malignancy. IMPRESSION: Uncomplicated ultrasound-guided 18-gauge core biopsies of a lesion in the right lobe of the liver at the dome. RPTAT: EE Physician Samuel Date Time Electronically viewed and signed by Physician Samuel on 10/17/2016 12:35 /
--- NOTE | 2016-10-17 15:33 | PN ---
Date/Time of Note Date/Time of Note DATE: 10/17/16 TIME: 15:31 Assessment/Plan VTE Prophylaxis VTE Prophylaxis Intervention: SCD's Lines/Catheters [facility] (from [facility] Urinary Cath still in place: No Assessment/Plan Chief Complaint/Hosp Course ASSESSMENT AND PLAN: 1. Atypical chest pain. Acute coronary syndrome was ruled out by negative troponin. EKG is negative. 2D echocardiogram demonstrated ejection fraction of 50%. Continue aspirin 2. Incidental finding of lung mass. Pulmonology has been consulted. Hematology/Oncology has been consulted. 3. Incidental finding of left lobe of the liver consistent with malignancy, likely metastasis from colon. General Surgery and Hematology/Oncology have been consulted. Status post liver biopsy follow up results of pathology 4. Diabetes mellitus, better controlled. Continue Lantus, insulin sliding scale, continue low-carbohydrate diet. 5. Anemia. Will continue to monitor. 6. For deep venous thrombosis prophylaxis, SCD. 7. For gastrointestinal prophylaxis, on Pepcid. We will continue to monitor patient closely. Further recommendations, management and treatment as per hospital course Problems: Subjective 24 Hr Interval Summary Free Text/Dictation Status post liver biopsy Patient denies of any chest pain or shortness of breath Minimal abdominal discomfort Exam/Review of Systems Vital Signs Vitals Vital Signs Date Time Temp Pulse Resp B/P Pulse Ox O2 Delivery O2 Flow Rate FiO2 10/17/16 12:30 98.8 94 18 109/69 97 Room Air Intake and Output 10/16/16 10/16/16 10/17/16 15:00 23:00 07:00 Intake Total 500 ml 3350 ml 1660 ml Output Total 2400 ml Balance 500 ml 3350 ml -740 ml Exam General: The patient is well-developed, Not in acute distress. HEENT: Atraumatic, normocephalic. The pupils are equal and round . Neck: Supple with full range of motion. Chest: Normal expansion of the thorax during inspiration Lungs: Clear to auscultation bilaterally Heart: Normal S1-S2, Regular rhythm and rate. Abdomen: Soft , nontender, nondistended , bowel sounds are present. Extremities: Normal to inspection, no edema no cyanosis Neurologic: Normal mental status,The patient is awake, alert and oriented . Results Result Diagram: 10/17/16 0710 10/17/16 0710 Results 24 hrs Laboratory Tests Test 10/16/16 17:19 10/16/16 20:43 10/17/16 01:41 10/17/16 05:50 Bedside Glucose 247 H 200 170 175 Test 10/17/16 07:10 10/17/16 08:20 10/17/16 12:08 White Blood Count 8.9 # Red Blood Count 3.31 L Hemoglobin 9.9 L Hematocrit 30.3 L Mean Corpuscular Volume 91.5 Mean Corpuscular Hemoglobin 29.9 Mean Corpuscular Hemoglobin Concent 32.7 Red Cell Distribution Width 13.8 Platelet Count 309 Mean Platelet Volume 11.0 H Neutrophils % 82.5 H Lymphocytes % 8.9 L Monocytes % 5.4 Eosinophils % 1.7 Basophils % 0.7 Nucleated Red Blood Cells % 0.0 Neutrophils # 7.3 Lymphocytes # 0.8 Monocytes # 0.5 Eosinophils # 0.2 Basophils # 0.1 Nucleated Red Blood Cells # 0.0 Prothrombin Time 14.7 H Prothrombin Time Ratio 1.1 INR International Normalized Ratio 1.15 Activated Partial Thromboplast Time 38.1 H Sodium Level 134 L Potassium Level 4.0 Chloride Level 101 Carbon Dioxide Level 23 Anion Gap 14 Blood Urea Nitrogen 8 Creatinine 0.57 L Glucose Level 206 Calcium Level 8.5 Magnesium Level 2.1 Total Bilirubin 0.3 Direct Bilirubin 0.00 Indirect Bilirubin 0.3 Aspartate Amino Transf (AST/SGOT) 48 H Alanine Aminotransferase (ALT/SGPT) 28 Alkaline Phosphatase 264 H Total Protein 7.1 # Albumin 2.8 L Globulin 4.30 H Albumin/Globulin Ratio 0.65 Bedside Glucose 203 237 H Medications Medications Current Medications Insulin Aspart NOVOLOG *MILD* ALGORI... Q4 SC Last administered on 10/17/16 12 :14; Admin Dose 3 UNIT; Start 10/15/16 at 17:00 Sodium Chloride (NS) 1,000 ml @ 100 mls/hr Q10H IV Last administered on 01:45; Admin Dose 100 MLS/HR; Start 10/15/16 at 15:04 Ondansetron HCl (Zofran Inj) 4 mg Q6H PRN IV NAUSEA AND/OR VOMITING Last administered on 10/17/16 11:23; Admin Dose 4 MG; Start 10/15/16 at 15:30 Acetaminophen (Tylenol Tab) 650 mg Q6H PRN PO PAIN LEVEL 1-3 OR FEVER Last administered on 10/17/16 11:26; Admin Dose 650 MG; Start 10/15/16 at 15:30 Acetaminophen/ Hydrocodone Bitart ([place] (5/325)) 1 tab Q6H PRN PO MODERATE PAIN LEVEL 4-6; Start 10/15/16 at 15:30 Morphine Sulfate (morphine) 1 mg Q4H PRN IV SEVERE PAIN LEVEL 7-10; Start 10/15 at 15:30 Docusate Sodium (Colace) 100 mg Q12H PRN PO CONSTIPATION; Start 10/15/16 at 15: 30 Bisacodyl (Dulcolax) 5 mg DAILY PRN PO CONSTIPATION; Start 10/15/16 at 15:30 Famotidine 20 mg 20 mg Q12 IV Last administered on 10/17/16 08:36; Admin Dose 20 MG; Start 10/15/16 at 21:00 Ceftriaxone Sodium (Rocephin) 50 ml @ 100 mls/hr Q24H IVPB Last administered on 10/16/16 16:41; Admin Dose 100 MLS/HR; Start 10/15/16 at 16:00 Miscellaneous Information 1 ea NOTE XX ; Start 10/15/16 at 15:30 Glucose (Glutose) 15 gm Q15M PRN PO DECREASED GLUCOSE; Start 10/15/16 at 15:30 Glucose (Glutose) 22.5 gm Q15M PRN PO DECREASED GLUCOSE; Start 10/15/16 at 15: 30 Dextrose (D50w Syringe) 25 ml Q15M PRN IV DECREASED GLUCOSE; Start 10/15/16 at 15:30 Dextrose (D50w Syringe) 50 ml Q15M PRN IV DECREASED GLUCOSE; Start 10/15/16 at 15:30 Glucagon (Glucagen) 1 mg Q15M PRN IM DECREASED GLUCOSE; Start 10/15/16 at 15:30 Glucose (Glutose) 15 gm Q15M PRN BUCCAL DECREASED GLUCOSE; Start 10/15/16 at 15 :30 Insulin Glargine (Lantus) 14 unit DAILY@20 SC ; Start 10/17/16 at 20:00; Status SAMUEL GARCIA MD Oct 17, 2016 15:33
[2016-10-17] MEDS: CEFTRIAXONE 1 GM/50 ML (PMX) 50 ML IVPB SCH (15:38)
--- NOTE | 2016-10-17 16:03 | CONS ---
Date/Time of Note Date/Time of Note DATE: 10/17/16 TIME: 15:59 Consult Date/Type/Reason Admit Date/Time Oct 15, 2016 at 12:31 Initial Consult Date 10/15/16 Type of Consultation: pulmonary Subjective Patient stable no new events, status post biopsy of liver Objective Vital Signs Date Time Temp Pulse Resp B/P Pulse Ox O2 Delivery O2 Flow Rate FiO2 10/17/16 12:30 98.8 94 18 109/69 97 Room Air Intake and Output 10/16/16 10/16/16 10/17/16 15:00 23:00 07:00 Intake Total 500 ml 3350 ml 1660 ml Output Total 2400 ml Balance 500 ml 3350 ml -740 ml Exam PHYSICAL EXAMINATION: GENERAL: Well-nourished well-developed gentleman comfortable at rest VITAL SIGNS: As above NECK: Supple. No JVD or lymphadenopathy. CARDIAC: S1, S2. No added sounds or murmurs. CHEST: Diminished air entry bilaterally. ABDOMEN: Soft, nontender. No guarding or rebound. EXTREMITIES: No cyanosis, clubbing, edema. NEUROLOGIC: Generalized weakness. Results/Medications Result Diagram: 10/17/16 0710 10/17/16 0710 Results 24 hrs Laboratory Tests Test 10/16/16 17:19 10/16/16 20:43 10/17/16 01:41 10/17/16 05:50 Bedside Glucose 247 H 200 170 175 Test 10/17/16 07:10 10/17/16 08:20 10/17/16 12:08 White Blood Count 8.9 # Red Blood Count 3.31 L Hemoglobin 9.9 L Hematocrit 30.3 L Mean Corpuscular Volume 91.5 Mean Corpuscular Hemoglobin 29.9 Mean Corpuscular Hemoglobin Concent 32.7 Red Cell Distribution Width 13.8 Platelet Count 309 Mean Platelet Volume 11.0 H Neutrophils % 82.5 H Lymphocytes % 8.9 L Monocytes % 5.4 Eosinophils % 1.7 Basophils % 0.7 Nucleated Red Blood Cells % 0.0 Neutrophils # 7.3 Lymphocytes # 0.8 Monocytes # 0.5 Eosinophils # 0.2 Basophils # 0.1 Nucleated Red Blood Cells # 0.0 Prothrombin Time 14.7 H Prothrombin Time Ratio 1.1 INR International Normalized Ratio 1.15 Activated Partial Thromboplast Time 38.1 H Sodium Level 134 L Potassium Level 4.0 Chloride Level 101 Carbon Dioxide Level 23 Anion Gap 14 Blood Urea Nitrogen 8 Creatinine 0.57 L Glucose Level 206 Calcium Level 8.5 Magnesium Level 2.1 Total Bilirubin 0.3 Direct Bilirubin 0.00 Indirect Bilirubin 0.3 Aspartate Amino Transf (AST/SGOT) 48 H Alanine Aminotransferase (ALT/SGPT) 28 Alkaline Phosphatase 264 H Total Protein 7.1 # Albumin 2.8 L Globulin 4.30 H Albumin/Globulin Ratio 0.65 Bedside Glucose 203 237 H Medications Current Medications Insulin Aspart NOVOLOG *MILD* ALGORI... Q4 SC Last administered on 10/17/16 12 :14; Admin Dose 3 UNIT; Start 10/15/16 at 17:00 Sodium Chloride (NS) 1,000 ml @ 100 mls/hr Q10H IV Last administered on 01:45; Admin Dose 100 MLS/HR; Start 10/15/16 at 15:04 Ondansetron HCl (Zofran Inj) 4 mg Q6H PRN IV NAUSEA AND/OR VOMITING Last administered on 10/17/16 11:23; Admin Dose 4 MG; Start 10/15/16 at 15:30 Acetaminophen (Tylenol Tab) 650 mg Q6H PRN PO PAIN LEVEL 1-3 OR FEVER Last administered on 10/17/16 11:26; Admin Dose 650 MG; Start 10/15/16 at 15:30 Acetaminophen/ Hydrocodone Bitart ([place] (5/325)) 1 tab Q6H PRN PO MODERATE PAIN LEVEL 4-6; Start 10/15/16 at 15:30 Morphine Sulfate (morphine) 1 mg Q4H PRN IV SEVERE PAIN LEVEL 7-10 Last administered on 10/17/16 15:45; Admin Dose 1 MG; Start 10/15/16 at 15:30 Docusate Sodium (Colace) 100 mg Q12H PRN PO CONSTIPATION; Start 10/15/16 at 15: 30 Bisacodyl (Dulcolax) 5 mg DAILY PRN PO CONSTIPATION; Start 10/15/16 at 15:30 Famotidine 20 mg 20 mg Q12 IV Last administered on 10/17/16 08:36; Admin Dose 20 MG; Start 10/15/16 at 21:00 Ceftriaxone Sodium (Rocephin) 50 ml @ 100 mls/hr Q24H IVPB Last administered on 10/17/16t 15:38; Admin Dose 100 MLS/HR; Start 10/15/16 at 16:00 Miscellaneous Information 1 ea NOTE XX ; Start 10/15/16 at 15:30 Glucose (Glutose) 15 gm Q15M PRN PO DECREASED GLUCOSE; Start 10/15/16 at 15:30 Glucose (Glutose) 22.5 gm Q15M PRN PO DECREASED GLUCOSE; Start 10/15/16 at 15: 30 Dextrose (D50w Syringe) 25 ml Q15M PRN IV DECREASED GLUCOSE; Start 10/15/16 at 15:30 Dextrose (D50w Syringe) 50 ml Q15M PRN IV DECREASED GLUCOSE; Start 10/15/16 at 15:30 Glucagon (Glucagen) 1 mg Q15M PRN IM DECREASED GLUCOSE; Start 10/15/16 at 15:30 Glucose (Glutose) 15 gm Q15M PRN BUCCAL DECREASED GLUCOSE; Start 10/15/16 at 15 :30 Insulin Glargine (Lantus) 14 unit DAILY@20 SC ; Start 10/17/16 at 20:00 Morphine Sulfate (morphine) 2 mg Q3H PRN IV PAIN LEVEL 7-10; Start 10/17/16 at 15:30 Assessment/Plan Chief Complaint/Hosp Course Assessment 1. History of colorectal cancer now with evidence of extensive metastatic disease 2. Anemia likely of chronic disease 3. Altered mental status now improved likely toxic metabolic encephalopathy Plan 1. Monitor hemodynamic status following liver biopsy 2. Await pathology reports, hematology oncology recommendations 3. DVT GI prophylaxis Consider discharge planning tomorrow follow-up with primary care physician and oncologist Problems: DANIELE HALLMAN MD, [facility] Oct 17, 2016 16:03
[2016-10-17] MEDS ORDERED: INSULIN GLARGINE [LANtus] 3 ML PEN SC SCH (20:00)
[2016-10-17] MEDS: FAMOTIDINE 20 MG TAB PO SCH (21:00)
[2016-10-18] VITALS (12 sets, daily range): BP systolic 118–161; BP diastolic 71–84; PULSE 86–114; RESP 16–19
[2016-10-18] MEDS: INSULIN ASPART [NOVOLOG] 3 ML PEN SC SCH ×7 (01:28→22:05)
[2016-10-18] MEDS: SOD CHLORIDE 0.9% 1,000 ML IV SCH ×2 (03:04→12:12)
[2016-10-18] MEDS: morphine 2 MG INJ IV PRN ×3 (04:47→15:16)
[2016-10-18 07:58] LABS: ADD SCAN DIFF NO
[2016-10-18 08:08] LABS: HEMATOCRIT 27.4 % (42.0-52.0); HEMOGLOBIN 8.9 g/dl (14.0-18.0); MEAN CORPUSCULAR HEMOGLOBIN 29.7 pg (29.0-33.0); MEAN CORPUSCULAR VOLUME 91.3 fl (82.0-101.0); WHITE BLOOD COUNT 12.1 10^3/ul (4.8-10.8)
[2016-10-18 08:09] LABS: BASOPHILS % 0.3 % (0.0-2.0); EOSINOPHILS % 0.2 % (0.0-7.0); LYMPHOCYTES # 0.8 10^3/ul (0.8-2.9); LYMPHOCYTES % 6.3 % (15.0-51.0); MEAN CORPUSCULAR HGB CONC 32.5 g/dl (32.0-37.0); MONOCYTE # 0.7 10^3/ul (0.3-0.9); MONOCYTES % 5.7 % (0.0-11.0); NEUTROPHIL # 10.5 10^3/ul (1.6-7.5); NEUTROPHILS % 86.8 % (39.0-77.0); PLATELET COUNT 323 10^3/UL (140-415)
[2016-10-18 08:15] LABS: ALBUMIN 2.8 g/dl (3.3-4.9)
[2016-10-18 08:16] LABS: POTASSIUM 4.2 mmol/L (3.5-5.1)
[2016-10-18 08:18] LABS: BILIRUBIN,INDIRECT 0.3 mg/dl (0-1.1); BILIRUBIN,TOTAL 0.3 mg/dl (0.2-1.3); CREATININE 0.61 mg/dl (0.61-1.24)
[2016-10-18] MEDS: ACETAMINOPHEN 325 MG TAB PO PRN ×3 (08:18→22:14)
[2016-10-18 08:19] LABS: ALBUMIN/GLOBULIN RATIO 0.66; MAGNESIUM 1.9 mg/dl (1.7-2.5)
[2016-10-18] MEDS: FAMOTIDINE 20 MG TAB PO SCH ×2 (08:19→22:02)
--- NOTE | 2016-10-18 12:42 | CONS ---
Date/Time of Note Date/Time of Note DATE: 10/18/16 TIME: 12:41 Consult Date/Type/Reason Admit Date/Time Oct 15, 2016 at 12:31 Initial Consult Date 10/15/16 Type of Consultation: pulmonary Subjective Remains stable following ultrasound-guided biopsy liver ambulating without respiratory distress Objective Vital Signs Date Time Temp Pulse Resp B/P Pulse Ox O2 Delivery O2 Flow Rate FiO2 10/18/16 12:17 96 10/18/16 11:49 98.1 19 118/71 98 10/17/16 12:30 Room Air Intake and Output 10/17/16 10/17/16 10/18/16 15:00 23:00 07:00 Intake Total 300 ml 1850 ml Output Total 800 ml 1200 ml Balance -500 ml 650 ml Results/Medications Result Diagram: 10/18/1630 10/18/16 0730 Results 24 hrs Laboratory Tests Test 10/17/16 17:47 10/17/16 20:50 10/18/16 01:23 10/18/16 04:52 Bedside Glucose 280 H 232 H 188 205 Test 10/18/16 07:30 10/18/16 08:00 10/18/16 12:09 White Blood Count 12.1 #H Red Blood Count 3.00 L Hemoglobin 8.9 L Hematocrit 27.4 L Mean Corpuscular Volume 91.3 Mean Corpuscular Hemoglobin 29.7 Mean Corpuscular Hemoglobin Concent 32.5 Red Cell Distribution Width 14.0 Platelet Count 323 Mean Platelet Volume 11.0 H Neutrophils % 86.8 H Lymphocytes % 6.3 L Monocytes % 5.7 Eosinophils % 0.2 Basophils % 0.3 Nucleated Red Blood Cells % 0.0 Neutrophils # 10.5 H Lymphocytes # 0.8 Monocytes # 0.7 Eosinophils # 0.0 Basophils # 0.0 Nucleated Red Blood Cells # 0.0 Sodium Level 129 L Potassium Level 4.2 Chloride Level 98 Carbon Dioxide Level 22 Anion Gap 13 Blood Urea Nitrogen 8 Creatinine 0.61 Glucose Level 211 Calcium Level 8.0 L Magnesium Level 1.9 Total Bilirubin 0.3 Direct Bilirubin 0.00 Indirect Bilirubin 0.3 Aspartate Amino Transf (AST/SGOT) 385 #H Alanine Aminotransferase (ALT/SGPT) 48 Alkaline Phosphatase 322 H Total Protein 7.0 Albumin 2.8 L Globulin 4.20 H Albumin/Globulin Ratio 0.66 Bedside Glucose 209 314 H Medications Current Medications Insulin Aspart NOVOLOG *MILD* ALGORI... Q4 SC Last administered on 10/18/16 12 :12; Admin Dose 5 UNIT; Start 10/15/16 at 17:00 Sodium Chloride (NS) 1,000 ml @ 100 mls/hr Q10H IV Last administered on 12:12; Admin Dose 100 MLS/HR; Start 10/15/16 at 15:04 Ondansetron HCl (Zofran Inj) 4 mg Q6H PRN IV NAUSEA AND/OR VOMITING Last administered on 10/17/16 11:23; Admin Dose 4 MG; Start 10/15/16 at 15:30 Acetaminophen (Tylenol Tab) 650 mg Q6H PRN PO PAIN LEVEL 1-3 OR FEVER Last administered on 10/18/16 08:18; Admin Dose 650 MG; Start 10/15/16 at 15:30 Acetaminophen/ Hydrocodone Bitart ([place] (5/325)) 1 tab Q6H PRN PO MODERATE PAIN LEVEL 4-6; Start 10/15/16 at 15:30 Morphine Sulfate (morphine) 1 mg Q4H PRN IV SEVERE PAIN LEVEL 7-10 Last administered on 10/17/16 15:45; Admin Dose 1 MG; Start 10/15/16 at 15:30 Docusate Sodium (Colace) 100 mg Q12H PRN PO CONSTIPATION; Start 10/15/16 at 15: 30 Bisacodyl 5 mg 5 mg DAILY PRN PO CONSTIPATION; Start 10/15/16 at 15:30 Ceftriaxone Sodium (Rocephin) 50 ml @ 100 mls/hr Q24H IVPB Last administered on 10/17/16 15:38; Admin Dose 100 MLS/HR; Start 10/15/16 at 16:00 Miscellaneous Information 1 ea NOTE XX ; Start 10/15/16 at 15:30 Glucose (Glutose) 15 gm Q15M PRN PO DECREASED GLUCOSE; Start 10/15/16 at 15:30 Glucose (Glutose) 22.5 gm Q15M PRN PO DECREASED GLUCOSE; Start 10/15/16 at 15: 30 Dextrose (D50w Syringe) 25 ml Q15M PRN IV DECREASED GLUCOSE; Start 10/15/16 at 15:30 Dextrose (D50w Syringe) 50 ml Q15M PRN IV DECREASED GLUCOSE; Start 10/15/16 at 15:30 Glucagon (Glucagen) 1 mg Q15M PRN IM DECREASED GLUCOSE; Start 10/15/16 at 15:30 Glucose (Glutose) 15 gm Q15M PRN BUCCAL DECREASED GLUCOSE; Start 10/15/16 at 15 :30 Insulin Glargine (Lantus) 14 unit DAILY@20 SC Last administered on 10/17/16 21 :02; Admin Dose 14 UNIT; Start 10/17/16 at 20:00 Morphine Sulfate (morphine) 2 mg Q3H PRN IV PAIN LEVEL 7-10 Last administered on 10/18/16 09:09; Admin Dose 2 MG; Start 10/17/16 at 15:30 Famotidine (Pepcid) 20 mg Q12 PO Last administered on 10/18/16 08:19; Admin Dose 20 MG; Start 10/17/16 at 21:00 Assessment/Plan Chief Complaint/Hosp Course Assessment 1. History of colorectal cancer now with evidence of extensive metastatic disease 2. Anemia likely of chronic disease 3. 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 Monitor hemodynamic status following liver biopsy 2. Await pathology reports, hematology oncology recommendations 3. DVT GI prophylaxis 4. Discharge planning once sodium improves Problems: DAN[facility]LE [facility]ALLMAN [facility], [facility] Oct 18, 2016 12:42
--- NOTE | 2016-10-18 14:07 | PN ---
Date/Time of Note Date/Time of Note DATE: 10/18/16 TIME: 14:04 Assessment/Plan VTE Prophylaxis VTE Prophylaxis Intervention: SCD's Lines/Catheters [facility] Lock Urinary Cath still in place: No Assessment/Plan Chief Complaint/Hosp Course ASSESSMENT AND PLAN: 1. Atypical chest pain. Acute coronary syndrome was ruled out by negative troponin. EKG is negative. 2D echocardiogram demonstrated ejection fraction of 50%. Continue aspirin 2. Incidental finding of lung mass. Pulmonology has been consulted. Hematology/Oncology has been consulted. 3. Incidental finding of left lobe of the liver consistent with malignancy, likely metastasis from colon. General Surgery and Hematology/Oncology have been consulted. Status post liver biopsy follow up results of pathology 4. Diabetes mellitus, better controlled. Continue Lantus, insulin sliding scale, continue low-carbohydrate diet. 5. Anemia. Will continue to monitor. 6. For deep venous thrombosis prophylaxis, SCD. 7. For gastrointestinal prophylaxis, on Pepcid. We will continue to monitor patient closely. Further recommendations, management and treatment as per hospital course Problems: Subjective 24 Hr Interval Summary Free Text/Dictation Patient denies of any chest pain or shortness of breath No nausea vomiting diarrhea Tolerating oral intake Status post liver biopsy on Exam/Review of Systems Vital Signs Vitals Vital Signs Date Time Temp Pulse Resp B/P Pulse Ox O2 Delivery O2 Flow Rate FiO2 10/18/16 12:17 96 10/18/16 11:49 98.1 19 118/71 98 10/17/16 12:30 Room Air Intake and Output 10/17/16 10/17/16 10/18/16 15:00 23:00 07:00 Intake Total 300 ml 1850 ml Output Total 800 ml 1200 ml Balance -500 ml 650 ml Exam General: The patient is well-developed, Not in acute distress. HEENT: Atraumatic, normocephalic. The pupils are equal and round . Neck: Supple with full range of motion. Chest: Normal expansion of the thorax during inspiration Lungs: Clear to auscultation bilaterally Heart: Normal S1-S2, Regular rhythm and rate. Abdomen: Soft , nontender, nondistended , bowel sounds are present. Extremities: Normal to inspection, no edema no cyanosis Neurologic: Normal mental status,The patient is awake, alert and oriented . Results Result Diagram: 10/18/16 0730 10/18/16 0730 Results 24 hrs Laboratory Tests Test 10/17/16 17:47 10/17/16 20:50 10/18/16 01:23 10/18/16 04:52 Bedside Glucose 280 H 232 H 188 205 Test 10/18/16 07:30 10/18/16 08:00 10/18/16 12:09 White Blood Count 12.1 #H Red Blood Count 3.00 L Hemoglobin 8.9 L Hematocrit 27.4 L Mean Corpuscular Volume 91.3 Mean Corpuscular Hemoglobin 29.7 Mean Corpuscular Hemoglobin Concent 32.5 Red Cell Distribution Width 14.0 Platelet Count 323 Mean Platelet Volume 11.0 H Neutrophils % 86.8 H Lymphocytes % 6.3 L Monocytes % 5.7 Eosinophils % 0.2 Basophils % 0.3 Nucleated Red Blood Cells % 0.0 Neutrophils # 10.5 H Lymphocytes # 0.8 Monocytes # 0.7 Eosinophils # 0.0 Basophils # 0.0 Nucleated Red Blood Cells # 0.0 Sodium Level 129 L Potassium Level 4.2 Chloride Level 98 Carbon Dioxide Level 22 Anion Gap 13 Blood Urea Nitrogen 8 Creatinine 0.61 Glucose Level 211 Calcium Level 8.0 L Magnesium Level 1.9 Total Bilirubin 0.3 Direct Bilirubin 0.00 Indirect Bilirubin 0.3 Aspartate Amino Transf (AST/SGOT) 385 #H Alanine Aminotransferase (ALT/SGPT) 48 Alkaline Phosphatase 322 H Total Protein 7.0 Albumin 2.8 L Globulin 4.20 H Albumin/Globulin Ratio 0.66 Bedside Glucose 209 314 H Medications Medications Current Medications Insulin Aspart NOVOLOG *MILD* ALGORI... Q4 SC Last administered on 10/18/16 12 :12; Admin Dose 5 UNIT; Start 10/15/16 at 17:00 Sodium Chloride (NS) 1,000 ml @ 100 mls/hr Q10H IV Last administered on 12:12; Admin Dose 100 MLS/HR; Start 10/15/16 at 15:04 Ondansetron HCl (Zofran Inj) 4 mg Q6H PRN IV NAUSEA AND/OR VOMITING Last administered on 10/17/16 11:23; Admin Dose 4 MG; Start 10/15/16 at 15:30 Acetaminophen (Tylenol Tab) 650 mg Q6H PRN PO PAIN LEVEL 1-3 OR FEVER Last administered on 10/18/16 08:18; Admin Dose 650 MG; Start 10/15/16 at 15:30 Acetaminophen/ Hydrocodone Bitart ([place] (5/325)) 1 tab Q6H PRN PO MODERATE PAIN LEVEL 4-6; Start 10/15/16 at 15:30 Morphine Sulfate (morphine) 1 mg Q4H PRN IV SEVERE PAIN LEVEL 7-10 Last administered on 10/17/16 15:45; Admin Dose 1 MG; Start 10/15/16 at 15:30 Docusate Sodium (Colace) 100 mg Q12H PRN PO CONSTIPATION; Start 10/15/16 at 15: 30 Bisacodyl 5 mg 5 mg DAILY PRN PO CONSTIPATION; Start 10/15/16 at 15:30 Ceftriaxone Sodium (Rocephin) 50 ml @ 100 mls/hr Q24H IVPB Last administered on 10/17/16 15:38; Admin Dose 100 MLS/HR; Start 10/15/16 at 16:00 Miscellaneous Information 1 ea NOTE XX ; Start 10/15/16 at 15:30 Glucose (Glutose) 15 gm Q15M PRN PO DECREASED GLUCOSE; Start 10/15/16 at 15:30 Glucose (Glutose) 22.5 gm Q15M PRN PO DECREASED GLUCOSE; Start 10/15/16 at 15: 30 Dextrose (D50w Syringe) 25 ml Q15M PRN IV DECREASED GLUCOSE; Start 10/15/16 at 15:30 Dextrose (D50w Syringe) 50 ml Q15M PRN IV DECREASED GLUCOSE; Start 10/15/16 at 15:30 Glucagon (Glucagen) 1 mg Q15M PRN IM DECREASED GLUCOSE; Start 10/15/16 at 15:30 Glucose (Glutose) 15 gm Q15M PRN BUCCAL DECREASED GLUCOSE; Start 10/15/16 at 15 :30 Insulin Glargine (Lantus) 14 unit DAILY@20 SC Last administered on 10/17/16 21 :02; Admin Dose 14 UNIT; Start 10/17/16 at 20:00 Morphine Sulfate (morphine) 2 mg Q3H PRN IV PAIN LEVEL 7-10 Last administered on 10/18/16 09:09; Admin Dose 2 MG; Start 10/17/16 at 15:30 Famotidine (Pepcid) 20 mg Q12 PO Last administered on 10/18/16 08:19; Admin Dose 20 MG; Start 10/17/16 at 21:00 SAMUEL JOHNSTON MD Oct 18, 2016 14:07
[2016-10-18] MEDS ORDERED: DEXTROSE 5%-0.9% NACL 1,000 ML IV SCH (14:30)
[2016-10-18] MEDS ORDERED: Discontinue Glyburide, Glipizide, and/or Glimepiride prior to starting Insulin XX ONE (14:30)
[2016-10-18] MEDS ORDERED: HYPOGLYCEMIA PROTOCOL when Glucose is <70 mg/dL or symptomatic <90 mg/dL. XX ONE (14:30)
[2016-10-18] MEDS: CEFTRIAXONE 1 GM/50 ML (PMX) 50 ML IVPB SCH (15:16)
--- NOTE | 2016-10-18 16:23 | CONS ---
Date/Time of Note Date/Time of Note DATE: 10/18/16 TIME: 16:18 Assessment/Plan Assessment/Plan Chief Complaint/Hosp Course The patient is a 51 year old male previously treated by Dr. Joy (need to verify prior cancer history an treatment course with Dr. Joy) with a history of alcoholic cirrhosis, DM, history of colorectal cancer status post surgery, chemo and radiation per patient's in 2014, now presenting with new metastatic disease to the liver and lung. CT reveals moderate mediastinal, prevascular space and retrosternal lymphadenopathy, numerous bilateral noncalcified pulmonary nodules up to 1.3 cm consistent with metastasis, and extensive inhomogeneous ill-defined low density lesions involving the right left lobes of the liver consistent with malignancy likely metastasis though multi focal hepatic cellular carcinoma cannot be excluded with findings suggestive of cirrhosis. - Requesting records from Dr. Joy's office - Liver/lung lesions concerning for metastatic colorectal cancer with CT A/P multiphase demonstrating 1. Widespread diffuse hepatic metastases. 2. Widespread diffuse pulmonary metastases. 3. Diffuse lymphatic spread of neoplasm to the retroperitoneal, retrocrural, valeri hepatis, epigastric, and pericardiac lymph node stations. - status post liver biopsy 10/17/16, prelim shows poorly differentiated metastatic adenocarcinoma, pending IHC and neuroendocrine stains. - will place port as long as BCx negative, ok for inpatient or outpatient chemo once fevers resolve and f/u with Dr. Joy - will request KRAS, NRAS, BRAF, MSI testing on path specimen - monitor LFTs status post liver biopsy, AST elevated from 48 to 385, bili normal at 0.3 - CEA elevated at 38.8 (normal 0-5), CA 19-9 mildly elevated at 46.4, AFP normal at 1.63 - HIV, hep panel neg # Normocytic anemia, slight drop to 8.9, monitor - Iron panel consistent with anemia of chronic inflammation - Vitamin B12 normal, pending folate, TSH WNL, retic count inappropriately low; LDH elevated at 2209 likely due to metastatic cancer, haptoglobin not suppressed arguing against hemolysis # Fever, monitor per hospitalist, f/u BCx, patient started on Zosyn Will continue to follow Problems: Consultation Date/Type/Reason Admit Date/Time Oct 15, 2016 at 12:31 Initial Consult Date 10/15/16 Type of Consultation: Oncology 24 HR Interval Summary Free Text/Dictation Patient denies complaints. No significant abdominal pain per patient. 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 Results Result Diagram: 10/18/1630 10/18/16 0730 Results 24 hrs Laboratory Tests Test 10/17/16 17:47 10/17/16 20:50 10/18/16 01:23 10/18/16 04:52 Bedside Glucose 280 H 232 H 188 205 Test 10/18/16 07:30 10/18/16 08:00 10/18/16 12:09 White Blood Count 12.1 #H Red Blood Count 3.00 L Hemoglobin 8.9 L Hematocrit 27.4 L Mean Corpuscular Volume 91.3 Mean Corpuscular Hemoglobin 29.7 Mean Corpuscular Hemoglobin Concent 32.5 Red Cell Distribution Width 14.0 Platelet Count 323 Mean Platelet Volume 11.0 H Neutrophils % 86.8 H Lymphocytes % 6.3 L Monocytes % 5.7 Eosinophils % 0.2 Basophils % 0.3 Nucleated Red Blood Cells % 0.0 Neutrophils # 10.5 H Lymphocytes # 0.8 Monocytes # 0.7 Eosinophils # 0.0 Basophils # 0.0 Nucleated Red Blood Cells # 0.0 Sodium Level 129 L Potassium Level 4.2 Chloride Level 98 Carbon Dioxide Level 22 Anion Gap 13 Blood Urea Nitrogen 8 Creatinine 0.61 Glucose Level 211 Calcium Level 8.0 L Magnesium Level 1.9 Total Bilirubin 0.3 Direct Bilirubin 0.00 Indirect Bilirubin 0.3 Aspartate Amino Transf (AST/SGOT) 385 #H Alanine Aminotransferase (ALT/SGPT) 48 Alkaline Phosphatase 322 H Total Protein 7.0 Albumin 2.8 L Globulin 4.20 H Albumin/Globulin Ratio 0.66 Bedside Glucose 209 314 H Medications Medications Current Medications Sodium Chloride (NS) 1,000 ml @ 50 mls/hr Q20H IV Last administered on 12:12; Admin Dose 100 MLS/HR; Start 10/15/16 at 15:04 Ondansetron HCl (Zofran Inj) 4 mg Q6H PRN IV NAUSEA AND/OR VOMITING Last administered on 10/17/16 11:23; Admin Dose 4 MG; Start 10/15/16 at 15:30 Acetaminophen (Tylenol Tab) 650 mg Q6H PRN PO PAIN LEVEL 1-3 OR FEVER Last administered on 10/18/16 15:32; Admin Dose 650 MG; Start 10/15/16 at 15:30 Acetaminophen/ Hydrocodone Bitart ([place] (5/325)) 1 tab Q6H PRN PO MODERATE PAIN LEVEL 4-6; Start 10/15/16 at 15:30 Morphine Sulfate (morphine) 1 mg Q4H PRN IV SEVERE PAIN LEVEL 7-10 Last administered on 10/17/16 15:45; Admin Dose 1 MG; Start 10/15/16 at 15:30 Docusate Sodium (Colace) 100 mg Q12H PRN PO CONSTIPATION; Start 10/15/16 at 15: 30 Bisacodyl (Dulcolax) 5 mg DAILY PRN PO CONSTIPATION; Start 10/15/16 at 15:30 Miscellaneous Information 1 ea NOTE XX ; Start 10/15/16 at 15:30 Glucose (Glutose) 15 gm Q15M PRN PO DECREASED GLUCOSE; Start 10/15/16 at 15:30 Glucose (Glutose) 22.5 gm Q15M PRN PO DECREASED GLUCOSE; Start 10/15/16 at 15: 30 Dextrose (D50w Syringe) 25 ml Q15M PRN IV DECREASED GLUCOSE; Start 10/15/16 at 15:30 Dextrose (D50w Syringe) 50 ml Q15M PRN IV DECREASED GLUCOSE; Start 10/15/16 at 15:30 Glucagon (Glucagen) 1 mg Q15M PRN IM DECREASED GLUCOSE; Start 10/15/16 at 15:30 Glucose (Glutose) 15 gm Q15M PRN BUCCAL DECREASED GLUCOSE; Start 10/15/16 at 15 :30 Morphine Sulfate (morphine) 2 mg Q3H PRN IV PAIN LEVEL 7-10 Last administered on 10/18/16 15:16; Admin Dose 2 MG; Start 10/17/16 at 15:30 Famotidine (Pepcid) 20 mg Q12 PO Last administered on 10/18/16 08:19; Admin Dose 20 MG; Start 10/17/16 at 21:00 Insulin Glargine (Lantus) 15 unit DAILY@20 SC ; Start 10/18/16 at 20:00 Diagnostic Test (Pha) 1 ea 1 ea 02 XX ; Start 10/19/16 at 02:00 Dextrose/Sodium Chloride 1,000 ml @ 70 mls/hr [id number] IV ; Start 10/19/16 at 00 :00 Piperacillin Sod/ Tazobactam Sod (Zosyn 3.375gm/ 100 ml (Pmx)) 100 ml @ 200 mls /hr Q6 IVPB ; Start 10/18/16 at 18:00 TOANA PAULA MD Oct 18, 2016 16:23
[2016-10-18] MEDS: PIPER-TAZO 3.375 GM IV (PMX) 100 ML IVPB SCH (17:25)
[2016-10-18] MEDS ORDERED: INSULIN GLARGINE [LANtus] 3 ML PEN SC SCH (20:00)
[2016-10-19] VITALS (11 sets, daily range): BP systolic 116–143; BP diastolic 66–80; PULSE 98–120; RESP 16–19
[2016-10-19] MEDS ORDERED: DEXTROSE 5%-0.9% NACL 1,000 ML IV SCH
[2016-10-19] MEDS: PIPER-TAZO 3.375 GM IV (PMX) 100 ML IVPB SCH ×4 (01:20→17:26)
[2016-10-19] MEDS: ACCU-CHEK XX SCH (02:00)
[2016-10-19] MEDS: SOD CHLORIDE 0.9% 1,000 ML IV SCH ×2 (07:43→15:06)
[2016-10-19 07:50] LABS: ADD SCAN DIFF NO
[2016-10-19 07:54] LABS: BASOPHILS % 0.1 % (0.0-2.0); EOSINOPHILS % 0.1 % (0.0-7.0); HEMATOCRIT 25.1 % (42.0-52.0); HEMOGLOBIN 9.1 g/dl (14.0-18.0); LYMPHOCYTES # 0.6 10^3/ul (0.8-2.9); LYMPHOCYTES % 4.3 % (15.0-51.0); MEAN CORPUSCULAR HEMOGLOBIN 32.5 pg (29.0-33.0); MEAN CORPUSCULAR HGB CONC 36.3 g/dl (32.0-37.0); MEAN CORPUSCULAR VOLUME 89.6 fl (82.0-101.0); MONOCYTE # 0.8 10^3/ul (0.3-0.9); MONOCYTES % 5.7 % (0.0-11.0); NEUTROPHIL # 12.7 10^3/ul (1.6-7.5); PLATELET COUNT 286 10^3/UL (140-415); RED CELL DISTRIBUTION WIDTH 14.1 % (11.5-14.5); WHITE BLOOD COUNT 14.2 10^3/ul (4.8-10.8)
[2016-10-19] MEDS: INSULIN ASPART [NOVOLOG] 3 ML PEN SC SCH ×7 (08:00→20:58)
[2016-10-19 08:22] LABS: INR 1.33; PARTIAL THROMBOPLASTIN TIME 37.7 Sec (25.0-35.0); PROTIME 16.6 Sec (12.2-14.2); PT RATIO 1.3
[2016-10-19 08:33] LABS: CREATININE 0.64 mg/dl (0.61-1.24); POTASSIUM 3.9 mmol/L (3.5-5.1)
[2016-10-19] MEDS: FAMOTIDINE 20 MG TAB PO SCH ×2 (08:39→21:03)
--- NOTE | 2016-10-19 09:10 | CONS ---
Date/Time of Note Date/Time of Note DATE: 10/19/16 TIME: 09:08 Assessment/Plan Assessment/Plan Additional Assessment/Plan Preliminary path shows poorly differentiated adenocarcinoma. Unfortunately, there is no role for surgical intervention. Will not plan on seeing patient unless needed by the team. Please follow up with oncology. Local treatment options for liver include TACE, but only in the palliative setting and if the patient is symptomatic from these lesions. Appreciate the opportunity to participate in the care. Consultation Date/Type/Reason Admit Date/Time Oct 15, 2016 at 12:31 Psychological: no complaints Social History Alcohol Use: heavy Smoking Status: Never smoker Exam/Review of Systems Vital Signs Vitals Vital Signs Date Time Temp Pulse Resp B/P Pulse Ox O2 Delivery O2 Flow Rate FiO2 10/19/16 08:27 117 10/19/16 07:52 102.7 19 139/71 98 10/17/16 12:30 Room Air Intake and Output 10/18/16 10/18/16 10/19/16 15:00 23:00 07:00 Intake Total 3240 ml Output Total 2000 ml 225 ml Balance 1240 ml -225 ml Results Result Diagram: 10/19/16 0731 10/19/16 0731 Results 24 hrs Laboratory Tests Test 10/18/16 12:09 10/18/16 17:23 10/18/16 21:52 10/19/16 02:28 Bedside Glucose 314 H 332 H 273 H 278 H Test 10/19/16 07:31 10/19/16 08:13 White Blood Count 14.2 H Red Blood Count 2.80 L Hemoglobin 9.1 L Hematocrit 25.1 L Mean Corpuscular Volume 89.6 Mean Corpuscular Hemoglobin 32.5 Mean Corpuscular Hemoglobin Concent 36.3 Red Cell Distribution Width 14.1 Platelet Count 286 Mean Platelet Volume 11.0 H Neutrophils % 89.0 H Lymphocytes % 4.3 L Monocytes % 5.7 Eosinophils % 0.1 Basophils % 0.1 Nucleated Red Blood Cells % 0.0 Neutrophils # 12.7 H Lymphocytes # 0.6 L Monocytes # 0.8 Eosinophils # 0.0 Basophils # 0.0 Nucleated Red Blood Cells # 0.0 Prothrombin Time 16.6 H Prothrombin Time Ratio 1.3 INR International Normalized Ratio 1.33 Activated Partial Thromboplast Time 37.7 H Sodium Level 129 L Potassium Level 3.9 Chloride Level 102 Carbon Dioxide Level 22 Anion Gap 9 Blood Urea Nitrogen 9 Creatinine 0.64 Glucose Level 245 H Calcium Level 8.0 L Magnesium Level 2.0 Bedside Glucose 269 H Medications Medications Current Medications Sodium Chloride (NS) 1,000 ml @ 50 mls/hr Q20H IV Last administered on 12:12; Admin Dose 100 MLS/HR; Start 10/15/16 at 15:04 Ondansetron HCl (Zofran Inj) 4 mg Q6H PRN IV NAUSEA AND/OR VOMITING Last administered on 10/17/16 11:23; Admin Dose 4 MG; Start 10/15/16 at 15:30 Acetaminophen (Tylenol Tab) 650 mg Q6H PRN PO PAIN LEVEL 1-3 OR FEVER Last administered on 10/18/16 22:14; Admin Dose 650 MG; Start 10/15/16 at 15:30 Acetaminophen/ Hydrocodone Bitart ([place] (5/325)) 1 tab Q6H PRN PO MODERATE PAIN LEVEL 4-6; Start 10/15/16 at 15:30 Morphine Sulfate (morphine) 1 mg Q4H PRN IV SEVERE PAIN LEVEL 7-10 Last administered on 10/17/16 15:45; Admin Dose 1 MG; Start 10/15/16 at 15:30 Docusate Sodium (Colace) 100 mg Q12H PRN PO CONSTIPATION; Start 10/15/16 at 15: 30 Bisacodyl (Dulcolax) 5 mg DAILY PRN PO CONSTIPATION; Start 10/15/16 at 15:30 Miscellaneous Information 1 ea NOTE XX ; Start 10/15/16 at 15:30 Glucose (Glutose) 15 gm Q15M PRN PO DECREASED GLUCOSE; Start 10/15/16 at 15:30 Glucose (Glutose) 22.5 gm Q15M PRN PO DECREASED GLUCOSE; Start 10/15/16 at 15: 30 Dextrose (D50w Syringe) 25 ml Q15M PRN IV DECREASED GLUCOSE; Start 10/15/16 at 15:30 Dextrose (D50w Syringe) 50 ml Q15M PRN IV DECREASED GLUCOSE; Start 10/15/16 at 15:30 Glucagon (Glucagen) 1 mg Q15M PRN IM DECREASED GLUCOSE; Start 10/15/16 at 15:30 Glucose (Glutose) 15 gm Q15M PRN BUCCAL DECREASED GLUCOSE; Start 10/15/16 at 15 :30 Morphine Sulfate (morphine) 2 mg Q3H PRN IV PAIN LEVEL 7-10 Last administered on 10/18/16 15:16; Admin Dose 2 MG; Start 10/17/16 at 15:30 Famotidine (Pepcid) 20 mg Q12 PO Last administered on 10/18/16 22:02; Admin Dose 20 MG; Start 10/17/16 at 21:00 Insulin Glargine (Lantus) 15 unit DAILY@20 SC Last administered on 10/18/16 22 :02; Admin Dose 15 UNIT; Start 10/18/16 at 20:00 Diagnostic Test (Pha) 1 ea 1 ea 02 XX ; Start 10/19/16 at 02:00 Dextrose/Sodium Chloride 1,000 ml @ 70 mls/hr [id number] IV Last administered on 10/19/16 01:19; Admin Dose 70 MLS/HR; Start 10/19/16 at 00:00 Piperacillin Sod/ Tazobactam Sod (Zosyn 3.375gm/ 100 ml (Pmx)) 100 ml @ 200 mls /hr Q6 IVPB Last administered on 10/19/16 07:22; Admin Dose 200 MLS/HR; Start 10/18/16 at 18:00 JENNIFER NASSAR M.D. Oct 19, 2016 09:10
[2016-10-19 09:36] LABS: ALBUMIN 2.7 g/dl (3.3-4.9); BILIRUBIN,INDIRECT 0.4 mg/dl (0-1.1); BILIRUBIN,TOTAL 0.4 mg/dl (0.2-1.3); TOTAL PROTEIN 6.6 g/dl (6.1-8.1)
[2016-10-19] MEDS ORDERED: HEPARIN 1000 UNITS/ML 10 ML INJ ONE (10:15)
[2016-10-19] MEDS ORDERED: CEFAZOLIN 1 GM/50 ML (PMX) 50 ML IVPB ONE (10:30)
[2016-10-19] MEDS ORDERED: POLYMYXIN/BACITRACIN 1L IRRIG IRR ONE (10:30)
--- NOTE | 2016-10-19 14:35 | PN ---
Date/Time of Note Date/Time of Note DATE: 10/19/16 TIME: 14:29 Assessment/Plan VTE Prophylaxis VTE Prophylaxis Intervention: other Lines/Catheters IV Catheter Type (from [facility]): Peripheral IV Urinary Cath still in place: No Assessment/Plan Chief Complaint/Hosp Course ASSESSMENT AND PLAN: 1. Atypical chest pain. Acute coronary syndrome was ruled out by negative troponin. EKG is negative. 2D echocardiogram demonstrated ejection fraction of 50%. Continue aspirin 2. Incidental finding of lung mass. Pulmonology has been consulted. Hematology/Oncology has been consulted. 3. Incidental finding of left lobe of the liver consistent with malignancy, likely metastasis from colon. General Surgery and Hematology/Oncology have been consulted. Status post liver biopsy follow up results of pathology. 4. Diabetes mellitus, better controlled. Increase Lantus, insulin sliding scale, start pre-meal insulin, continue low-carbohydrate diet. 5. Anemia. Will continue to monitor. 6. For deep venous thrombosis prophylaxis, SCD. 7. For gastrointestinal prophylaxis, on Pepcid. We will continue to monitor patient closely. Further recommendations, management and treatment as per hospital course Plan for chemo port placement and patient is afebrile Problems: Subjective 24 Hr Interval Summary Free Text/Dictation Patient had been having fever off and on 24 hours T-max of 104 Denies of any chest pain, shortness of breath or abdominal discomfort No nausea vomiting diarrhea Exam/Review of Systems Vital Signs Vitals Vital Signs Date Time Temp Pulse Resp B/P Pulse Ox O2 Delivery O2 Flow Rate FiO2 10/19/16 12:16 111 10/19/16 12:01 101.4 19 142/78 94 10/17/16 12:30 Room Air Intake and Output 10/18/16 10/18/16 10/19/16 15:00 23:00 07:00 Intake Total 3240 ml Output Total 2000 ml 225 ml Balance 1240 ml -225 ml Exam General: The patient is well-developed, Not in acute distress. HEENT: Atraumatic, normocephalic. The pupils are equal and round . Neck: Supple with full range of motion. Chest: Normal expansion of the thorax during inspiration Lungs: Clear to auscultation bilaterally Heart: Normal S1-S2, Regular rhythm and rate. Abdomen: Soft , nontender, nondistended , bowel sounds are present. Extremities: Normal to inspection, no edema no cyanosis Neurologic: Normal mental status,The patient is awake, alert and oriented . Results Result Diagram: 10/19/16 0731 10/19/16 0731 Results 24 hrs Laboratory Tests Test 10/18/16 17:23 10/18/16 21:52 10/19/16 02:28 10/19/16 07:31 Bedside Glucose 332 H 273 H 278 H White Blood Count 14.2 H Red Blood Count 2.80 L Hemoglobin 9.1 L Hematocrit 25.1 L Mean Corpuscular Volume 89.6 Mean Corpuscular Hemoglobin 32.5 Mean Corpuscular Hemoglobin Concent 36.3 Red Cell Distribution Width 14.1 Platelet Count 286 Mean Platelet Volume 11.0 H Neutrophils % 89.0 H Lymphocytes % 4.3 L Monocytes % 5.7 Eosinophils % 0.1 Basophils % 0.1 Nucleated Red Blood Cells % 0.0 Neutrophils # 12.7 H Lymphocytes # 0.6 L Monocytes # 0.8 Eosinophils # 0.0 Basophils # 0.0 Nucleated Red Blood Cells # 0.0 Prothrombin Time 16.6 H Prothrombin Time Ratio 1.3 INR International Normalized Ratio 1.33 Activated Partial Thromboplast Time 37.7 H Sodium Level 129 L Potassium Level 3.9 Chloride Level 102 Carbon Dioxide Level 22 Anion Gap 9 Blood Urea Nitrogen 9 Creatinine 0.64 Glucose Level 245 H Calcium Level 8.0 L Magnesium Level 2.0 Total Bilirubin 0.4 Direct Bilirubin 0.00 Indirect Bilirubin 0.4 Aspartate Amino Transf (AST/SGOT) 122 #H Alanine Aminotransferase (ALT/SGPT) 36 Alkaline Phosphatase 304 H Total Protein 6.6 Albumin 2.7 L Test 10/19/16 08:13 10/19/16 12:23 Bedside Glucose 269 H 301 H Medications Medications Current Medications Sodium Chloride (NS) 1,000 ml @ 50 mls/hr Q20H IV Last administered on 12:12; Admin Dose 100 MLS/HR; Start 10/15/16 at 15:04 Ondansetron HCl (Zofran Inj) 4 mg Q6H PRN IV NAUSEA AND/OR VOMITING Last administered on 10/17/16 11:23; Admin Dose 4 MG; Start 10/15/16 at 15:30 Acetaminophen (Tylenol Tab) 650 mg Q6H PRN PO PAIN LEVEL 1-3 OR FEVER Last administered on 10/18/16 22:14; Admin Dose 650 MG; Start 10/15/16 at 15:30 Acetaminophen/ Hydrocodone Bitart ([place] (5/325)) 1 tab Q6H PRN PO MODERATE PAIN LEVEL 4-6; Start 10/15/16 at 15:30 Morphine Sulfate (morphine) 1 mg Q4H PRN IV SEVERE PAIN LEVEL 7-10 Last administered on 10/17/16 15:45; Admin Dose 1 MG; Start 10/15/16 at 15:30 Docusate Sodium (Colace) 100 mg Q12H PRN PO CONSTIPATION; Start 10/15/16 at 15: 30 Bisacodyl (Dulcolax) 5 mg DAILY PRN PO CONSTIPATION; Start 10/15/16 at 15:30 Miscellaneous Information 1 ea NOTE XX ; Start 10/15/16 at 15:30 Glucose (Glutose) 15 gm Q15M PRN PO DECREASED GLUCOSE; Start 10/15/16 at 15:30 Glucose (Glutose) 22.5 gm Q15M PRN PO DECREASED GLUCOSE; Start 10/15/16 at 15: 30 Dextrose (D50w Syringe) 25 ml Q15M PRN IV DECREASED GLUCOSE; Start 10/15/16 at 15:30 Dextrose (D50w Syringe) 50 ml Q15M PRN IV DECREASED GLUCOSE; Start 10/15/16 at 15:30 Glucagon (Glucagen) 1 mg Q15M PRN IM DECREASED GLUCOSE; Start 10/15/16 at 15:30 Glucose (Glutose) 15 gm Q15M PRN BUCCAL DECREASED GLUCOSE; Start 10/15/16 at 15 :30 Morphine Sulfate (morphine) 2 mg Q3H PRN IV PAIN LEVEL 7-10 Last administered on 10/18/16 15:16; Admin Dose 2 MG; Start 10/17/16 at 15:30 Famotidine (Pepcid) 20 mg Q12 PO Last administered on 10/18/16 22:02; Admin Dose 20 MG; Start 10/17/16 at 21:00 Insulin Glargine (Lantus) 15 unit DAILY@20 SC Last administered on 10/18/16 22 :02; Admin Dose 15 UNIT; Start 10/18/16 at 20:00 Diagnostic Test (Pha) 1 ea 1 ea 02 XX ; Start 10/19/16 at 02:00 Dextrose/Sodium Chloride 1,000 ml @ 70 mls/hr [id number] IV Last administered on 10/19/16 01:19; Admin Dose 70 MLS/HR; Start 10/19/16 at 00:00 Piperacillin Sod/ Tazobactam Sod (Zosyn 3.375gm/ 100 ml (Pmx)) 100 ml @ 200 mls /hr Q6 IVPB Last administered on 10/19/16 12:26; Admin Dose 200 MLS/HR; Start 10/18/16 at 18:00 SAMUEL JOHNSTON MD Oct 19, 2016 14:35
--- NOTE | 2016-10-19 14:45 | CONS ---
Date/Time of Note Date/Time of Note DATE: 10/19/16 TIME: 14:43 Consult Date/Type/Reason Admit Date/Time Oct 15, 2016 at 12:31 Initial Consult Date 10/15/16 Type of Consultation: pulmonary Subjective Patient profile this morning with temperature 101 with associated diaphoresis. Currently not complaining of shortness of breath Right upper quadrant discomfort Objective Vital Signs Date Time Temp Pulse Resp B/P Pulse Ox O2 Delivery O2 Flow Rate FiO2 10/19/16 12:16 111 10/19/16 12:01 101.4 19 142/78 94 10/17/16 12:30 Room Air Intake and Output 10/18/16 10/18/16 10/19/16 15:00 23:00 07:00 Intake Total 3240 ml Output Total 2000 ml 225 ml Balance 1240 ml -225 ml Exam PHYSICAL EXAMINATION: GENERAL: Well-nourished well-developed gentleman comfortable at rest VITAL SIGNS: As above NECK: Supple. No JVD or lymphadenopathy. CARDIAC: S1, S2. No added sounds or murmurs. CHEST: Diminished air entry bilaterally. ABDOMEN: Soft, nontender. No guarding or rebound. EXTREMITIES: No cyanosis, clubbing, edema. NEUROLOGIC: Generalized weakness. Results/Medications Result Diagram: 10/19/16 0731 10/19/16 0731 Results 24 hrs Laboratory Tests Test 10/18/16 17:23 10/18/16 21:52 10/19/16 02:28 10/19/16 07:31 Bedside Glucose 332 H 273 H 278 H White Blood Count 14.2 H Red Blood Count 2.80 L Hemoglobin 9.1 L Hematocrit 25.1 L Mean Corpuscular Volume 89.6 Mean Corpuscular Hemoglobin 32.5 Mean Corpuscular Hemoglobin Concent 36.3 Red Cell Distribution Width 14.1 Platelet Count 286 Mean Platelet Volume 11.0 H Neutrophils % 89.0 H Lymphocytes % 4.3 L Monocytes % 5.7 Eosinophils % 0.1 Basophils % 0.1 Nucleated Red Blood Cells % 0.0 Neutrophils # 12.7 H Lymphocytes # 0.6 L Monocytes # 0.8 Eosinophils # 0.0 Basophils # 0.0 Nucleated Red Blood Cells # 0.0 Prothrombin Time 16.6 H Prothrombin Time Ratio 1.3 INR International Normalized Ratio 1.33 Activated Partial Thromboplast Time 37.7 H Sodium Level 129 L Potassium Level 3.9 Chloride Level 102 Carbon Dioxide Level 22 Anion Gap 9 Blood Urea Nitrogen 9 Creatinine 0.64 Glucose Level 245 H Calcium Level 8.0 L Magnesium Level 2.0 Total Bilirubin 0.4 Direct Bilirubin 0.00 Indirect Bilirubin 0.4 Aspartate Amino Transf (AST/SGOT) 122 #H Alanine Aminotransferase (ALT/SGPT) 36 Alkaline Phosphatase 304 H Total Protein 6.6 Albumin 2.7 L Test 10/19/16 08:13 10/19/16 12:23 Bedside Glucose 269 H 301 H Medications Current Medications Sodium Chloride (NS) 1,000 ml @ 50 mls/hr Q20H IV Last administered on 12:12; Admin Dose 100 MLS/HR; Start 10/15/16 at 15:04 Ondansetron HCl (Zofran Inj) 4 mg Q6H PRN IV NAUSEA AND/OR VOMITING Last administered on 10/17/16 11:23; Admin Dose 4 MG; Start 10/15/16 at 15:30 Acetaminophen (Tylenol Tab) 650 mg Q6H PRN PO PAIN LEVEL 1-3 OR FEVER Last administered on 10/18/16 22:14; Admin Dose 650 MG; Start 10/15/16 at 15:30 Acetaminophen/ Hydrocodone Bitart ([place] (5/325)) 1 tab Q6H PRN PO MODERATE PAIN LEVEL 4-6; Start 10/15/16 at 15:30 Morphine Sulfate (morphine) 1 mg Q4H PRN IV SEVERE PAIN LEVEL 7-10 Last administered on 10/17/16 15:45; Admin Dose 1 MG; Start 10/15/16 at 15:30 Docusate Sodium (Colace) 100 mg Q12H PRN PO CONSTIPATION; Start 10/15/16 at 15: 30 Bisacodyl (Dulcolax) 5 mg DAILY PRN PO CONSTIPATION; Start 10/15/16 at 15:30 Miscellaneous Information 1 ea NOTE XX ; Start 10/15/16 at 15:30 Glucose (Glutose) 15 gm Q15M PRN PO DECREASED GLUCOSE; Start 10/15/16 at 15:30 Glucose (Glutose) 22.5 gm Q15M PRN PO DECREASED GLUCOSE; Start 10/15/16 at 15: 30 Dextrose (D50w Syringe) 25 ml Q15M PRN IV DECREASED GLUCOSE; Start 10/15/16 at 15:30 Dextrose (D50w Syringe) 50 ml Q15M PRN IV DECREASED GLUCOSE; Start 10/15/16 at 15:30 Glucagon (Glucagen) 1 mg Q15M PRN IM DECREASED GLUCOSE; Start 10/15/16 at 15:30 Glucose (Glutose) 15 gm Q15M PRN BUCCAL DECREASED GLUCOSE; Start 10/15/16 at 15 :30 Morphine Sulfate (morphine) 2 mg Q3H PRN IV PAIN LEVEL 7-10 Last administered on 10/18/16 15:16; Admin Dose 2 MG; Start 10/17/16 at 15:30 Famotidine (Pepcid) 20 mg Q12 PO Last administered on 10/18/16 22:02; Admin Dose 20 MG; Start 10/17/16 at 21:00 Diagnostic Test (Pha) 1 ea 1 ea 02 XX ; Start 10/19/16 at 02:00 Dextrose/Sodium Chloride 1,000 ml @ 70 mls/hr [id number] IV Last administered on 10/19/16 01:19; Admin Dose 70 MLS/HR; Start 10/19/16 at 00:00 Piperacillin Sod/ Tazobactam Sod 100 ml @ 200 mls/hr Q6 IVPB Last administered on 10/19/16 12:26; Admin Dose 200 MLS/HR; Start 10/18/16 at 18:00 Levofloxacin/ Dextrose (Levaquin 500mg/ D5W 100 ml (Pmx)) 100 ml @ 100 mls/hr Q24H IVPB ; Start 10/19/16 at 15:00 Insulin Glargine (Lantus) 20 unit DAILY@20 SC ; Start 10/19/16 at 20:00 Assessment/Plan Chief Complaint/Hosp Course Assessment 1. History of colorectal cancer now with evidence of extensive metastatic disease 2. Anemia likely of chronic disease 3. 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 Leukocytosis and fevers concerning for sepsis Plan 1. Monitor hemodynamic status following liver biopsy 2. Await pathology reports, hematology oncology recommendations 3. DVT GI prophylaxis 4. Broaden antibiotics consider ID consult, consider ultrasound right upper quadrant Problems: DANIELE HALLMAN MD, [facility] Oct 19, 2016 14:45
[2016-10-19] MEDS: LEVOFLOXACIN 500MG/D5W (PMX) 100 ML IVPB SCH (15:06)
--- NOTE | 2016-10-19 15:39 | CONS ---
Date/Time of Note Date/Time of Note DATE: 10/19/16 TIME: 15:34 Assessment/Plan Assessment/Plan Chief Complaint/Hosp Course The patient is a 51 year old male previously treated by Dr. Joy (need to verify prior cancer history an treatment course with Dr. Joy) with a history of alcoholic cirrhosis, DM, history of colorectal cancer status post surgery, chemo and radiation per patient's in 2014, now presenting with new metastatic disease to the liver and lung. CT reveals moderate mediastinal, prevascular space and retrosternal lymphadenopathy, numerous bilateral noncalcified pulmonary nodules up to 1.3 cm consistent with metastasis, and extensive inhomogeneous ill-defined low density lesions involving the right left lobes of the liver consistent with malignancy likely metastasis though multi focal hepatic cellular carcinoma cannot be excluded with findings suggestive of cirrhosis. - Requesting records from Dr. Joy's office - Liver/lung lesions concerning for metastatic colorectal cancer with CT A/P multiphase demonstrating 1. Widespread diffuse hepatic metastases. 2. Widespread diffuse pulmonary metastases. 3. Diffuse lymphatic spread of neoplasm to the retroperitoneal, retrocrural, valeri hepatis, epigastric, and pericardiac lymph node stations. - status post liver biopsy 10/17/16, prelim shows poorly differentiated metastatic adenocarcinoma, pending IHC and neuroendocrine stains. - port placement on hold due to fevers, ok for inpatient or outpatient chemo once fevers resolve and f/u with Dr. Joy - will request KRAS, NRAS, BRAF, MSI testing on path specimen - monitor LFTs status post liver biopsy, AST elevated from 48 to 385 now improved to 122, bili normal at 0.4 - CEA elevated at 38.8 (normal 0-5), CA 19-9 mildly elevated at 46.4, AFP normal at 1.63 - HIV, hep panel neg # Normocytic anemia, slight drop to 8.9, monitor - Iron panel consistent with anemia of chronic inflammation - Vitamin B12 and folate normal, TSH WNL, retic count inappropriately low; LDH elevated at 2209 likely due to metastatic cancer, haptoglobin not suppressed arguing against hemolysis # Fever, monitor per hospitalist, f/u BCx, patient started on Zosyn. Patient continues to be febrile, tachycardic with worsening leukocytosis. Would recommend RUQ US and ID consult. Will continue to follow Problems: Consultation Date/Type/Reason Admit Date/Time Oct 15, 2016 at 12:31 Initial Consult Date 10/15/16 Type of Consultation: Oncology 24 HR Interval Summary Free Text/Dictation Patient continuing to have fevers but states that his RUQ pain has improved. Exam/Review of Systems Vital Signs Vitals Vital Signs Date Time Temp Pulse Resp B/P Pulse Ox O2 Delivery O2 Flow Rate FiO2 10/19/16 12:16 111 10/19/16 12:01 101.4 19 142/78 94 10/17/16 12:30 Room Air Intake and Output 10/18/16 10/18/16 10/19/16 15:00 23:00 07:00 Intake Total 3240 ml Output Total 2000 ml 225 ml Balance 1240 ml -225 ml Exam Constitutional: oriented Psych: no complaints Head: normocephalic Eyes: nl conjunctiva Respiratory: clear to auscultation Cardiovascular: regular rate and rhythm Gastrointestinal: soft, tender (suprapubic tenderness) Musculoskeletal: nl extremities to inspection Neurological: [employer] II-XII intact Results Result Diagram: 10/19/16 0731 10/19/16 0731 Results 24 hrs Laboratory Tests Test 10/18/16 17:23 10/18/16 21:52 10/19/16 02:28 10/19/16 07:31 Bedside Glucose 332 H 273 H 278 H White Blood Count 14.2 H Red Blood Count 2.80 L Hemoglobin 9.1 L Hematocrit 25.1 L Mean Corpuscular Volume 89.6 Mean Corpuscular Hemoglobin 32.5 Mean Corpuscular Hemoglobin Concent 36.3 Red Cell Distribution Width 14.1 Platelet Count 286 Mean Platelet Volume 11.0 H Neutrophils % 89.0 H Lymphocytes % 4.3 L Monocytes % 5.7 Eosinophils % 0.1 Basophils % 0.1 Nucleated Red Blood Cells % 0.0 Neutrophils # 12.7 H Lymphocytes # 0.6 L Monocytes # 0.8 Eosinophils # 0.0 Basophils # 0.0 Nucleated Red Blood Cells # 0.0 Prothrombin Time 16.6 H Prothrombin Time Ratio 1.3 INR International Normalized Ratio 1.33 Activated Partial Thromboplast Time 37.7 H Sodium Level 129 L Potassium Level 3.9 Chloride Level 102 Carbon Dioxide Level 22 Anion Gap 9 Blood Urea Nitrogen 9 Creatinine 0.64 Glucose Level 245 H Calcium Level 8.0 L Magnesium Level 2.0 Total Bilirubin 0.4 Direct Bilirubin 0.00 Indirect Bilirubin 0.4 Aspartate Amino Transf (AST/SGOT) 122 #H Alanine Aminotransferase (ALT/SGPT) 36 Alkaline Phosphatase 304 H Total Protein 6.6 Albumin 2.7 L Test 10/19/16 08:13 10/19/16 12:23 Bedside Glucose 269 H 301 H Medications Medications Current Medications Sodium Chloride (NS) 1,000 ml @ 50 mls/hr Q20H IV Last administered on 12:12; Admin Dose 100 MLS/HR; Start 10/15/16 at 15:04 Ondansetron HCl (Zofran Inj) 4 mg Q6H PRN IV NAUSEA AND/OR VOMITING Last administered on 10/17/16 11:23; Admin Dose 4 MG; Start 10/15/16 at 15:30 Acetaminophen (Tylenol Tab) 650 mg Q6H PRN PO PAIN LEVEL 1-3 OR FEVER Last administered on 10/18/16 22:14; Admin Dose 650 MG; Start 10/15/16 at 15:30 Acetaminophen/ Hydrocodone Bitart ([place] (5/325)) 1 tab Q6H PRN PO MODERATE PAIN LEVEL 4-6; Start 10/15/16 at 15:30 Morphine Sulfate (morphine) 1 mg Q4H PRN IV SEVERE PAIN LEVEL 7-10 Last administered on 10/17/16 15:45; Admin Dose 1 MG; Start 10/15/16 at 15:30 Docusate Sodium (Colace) 100 mg Q12H PRN PO CONSTIPATION; Start 10/15/16 at 15: 30 Bisacodyl (Dulcolax) 5 mg DAILY PRN PO CONSTIPATION; Start 10/15/16 at 15:30 Miscellaneous Information 1 ea NOTE XX ; Start 10/15/16 at 15:30 Glucose (Glutose) 15 gm Q15M PRN PO DECREASED GLUCOSE; Start 10/15/16 at 15:30 Glucose (Glutose) 22.5 gm Q15M PRN PO DECREASED GLUCOSE; Start 10/15/16 at 15: 30 Dextrose (D50w Syringe) 25 ml Q15M PRN IV DECREASED GLUCOSE; Start 10/15/16 at 15:30 Dextrose (D50w Syringe) 50 ml Q15M PRN IV DECREASED GLUCOSE; Start 10/15/16 at 15:30 Glucagon (Glucagen) 1 mg Q15M PRN IM DECREASED GLUCOSE; Start 10/15/16 at 15:30 Glucose (Glutose) 15 gm Q15M PRN BUCCAL DECREASED GLUCOSE; Start 10/15/16 at 15 :30 Morphine Sulfate (morphine) 2 mg Q3H PRN IV PAIN LEVEL 7-10 Last administered on 10/18/16 15:16; Admin Dose 2 MG; Start 10/17/16 at 15:30 Famotidine (Pepcid) 20 mg Q12 PO Last administered on 10/18/16 22:02; Admin Dose 20 MG; Start 10/17/16 at 21:00 Diagnostic Test (Pha) 1 ea 1 ea 02 XX ; Start 10/19/16 at 02:00 Piperacillin Sod/ Tazobactam Sod 100 ml @ 200 mls/hr Q6 IVPB Last administered on 10/19/16 12:26; Admin Dose 200 MLS/HR; Start 10/18/16 at 18:00 Levofloxacin/ Dextrose (Levaquin 500mg/ D5W 100 ml (Pmx)) 100 ml @ 100 mls/hr Q24H IVPB Last administered on 10/19/16 15:06; Admin Dose 100 MLS/HR; Start at 15:00 Insulin Glargine 20 unit 20 unit DAILY@20 SC ; Start 10/19/16 at 20:00 Sodium Chloride (NS) 1,000 ml @ 75 mls/hr [id number] IV Last administered on 10/19 15:06; Admin Dose 75 MLS/HR; Start 10/19/16 at 15:00 ANA PAULA DE ANDA MD Oct 19, 2016 15:39
[2016-10-19] MEDS: ACETAMINOPHEN 325 MG TAB PO PRN (16:12)
[2016-10-19] MEDS: HYDROCODONE/APAP (5/325) TAB PO PRN (18:40)
[2016-10-19] MEDS: INSULIN GLARGINE [LANtus] 3 ML PEN SC SCH (21:05)
[2016-10-20] VITALS (11 sets, daily range): BP systolic 118–152; BP diastolic 60–77; PULSE 88–113; RESP 18–20
[2016-10-20] MEDS: ACCU-CHEK XX SCH (02:00)
[2016-10-20] MEDS: PIPER-TAZO 3.375 GM IV (PMX) 100 ML IVPB SCH ×5 (03:09→23:10)
[2016-10-20] MEDS: SOD CHLORIDE 0.9% 1,000 ML IV SCH ×4 (03:16→23:11)
[2016-10-20] MEDS: FAMOTIDINE 20 MG TAB PO SCH ×2 (08:12→21:41)
[2016-10-20 08:16] LABS: ADD SCAN DIFF NO
[2016-10-20] MEDS: INSULIN ASPART [NOVOLOG] 3 ML PEN SC SCH ×7 (08:17→23:29)
[2016-10-20 08:20] LABS: BASOPHILS % 0.3 % (0.0-2.0); EOSINOPHILS % 0.3 % (0.0-7.0); HEMATOCRIT 25.4 % (42.0-52.0); HEMOGLOBIN 8.2 g/dl (14.0-18.0); LYMPHOCYTES # 0.9 10^3/ul (0.8-2.9); LYMPHOCYTES % 5.9 % (15.0-51.0); MEAN CORPUSCULAR HEMOGLOBIN 29.1 pg (29.0-33.0); MEAN CORPUSCULAR HGB CONC 32.3 g/dl (32.0-37.0); MEAN CORPUSCULAR VOLUME 90.1 fl (82.0-101.0); MEAN PLATELET VOLUME 11.3 fl (7.4-10.4); MONOCYTE # 0.8 10^3/ul (0.3-0.9); MONOCYTES % 5.2 % (0.0-11.0); NEUTROPHIL # 13.7 10^3/ul (1.6-7.5); NEUTROPHILS % 87.3 % (39.0-77.0); PLATELET COUNT 259 10^3/UL (140-415); RED BLOOD COUNT 2.82 10^6/ul (4.70-6.10); RED CELL DISTRIBUTION WIDTH 14.3 % (11.5-14.5); WHITE BLOOD COUNT 15.7 10^3/ul (4.8-10.8)
[2016-10-20 08:42] LABS: ALBUMIN 2.4 g/dl (3.3-4.9); POTASSIUM 3.6 mmol/L (3.5-5.1)
[2016-10-20 08:44] LABS: CREATININE 0.66 mg/dl (0.61-1.24)
[2016-10-20 08:45] LABS: ALBUMIN/GLOBULIN RATIO 0.63; BILIRUBIN,INDIRECT 0.4 mg/dl (0-1.1); BILIRUBIN,TOTAL 0.4 mg/dl (0.2-1.3); CALCIUM 7.8 mg/dl (8.4-10.2); MAGNESIUM 2.1 mg/dl (1.7-2.5); TOTAL PROTEIN 6.2 g/dl (6.1-8.1)
--- NOTE | 2016-10-20 13:55 | PN ---
Date/Time of Note Date/Time of Note DATE: 10/20/16 TIME: 13:53 Assessment/Plan VTE Prophylaxis VTE Prophylaxis Intervention: ambulation Lines/Catheters IV C[facility] Type [facility] Peripheral IV Urinary Cath still in place: No Assessment/Plan Assessment/Plan 51 year old male previously treated by Dr. Joy with a history of alcoholic cirrhosis, history of colorectal cancer status post surgery, chemo and radiation per patient's in 2014, now presenting with new metastatic disease to the liver and lung. - Liver/lung lesions concerning for metastatic colorectal cancer - status post liver biopsy 10/17/16, prelim shows poorly differentiated metastatic adenocarcinoma, pending IHC and neuroendocrine stains. - port placement on hold due to fevers, ok for inpatient or outpatient chemo once fevers resolve and f/u with Dr. Joy - will request KRAS, NRAS, BRAF, MSI testing on path specimen - monitor LFTs status post liver biopsy, AST elevated from 48 to 385 now improved to 122, bili normal at 0.4 - CEA elevated at 38.8 (normal 0-5), CA 19-9 mildly elevated at 46.4, AFP normal at 1.63 # Normocytic anemia, slight drop to 8.2, monitor - Iron panel consistent with anemia of chronic inflammation # Fever, monitor per hospitalist, f/u BCx, patient started on Zosyn. Subjective 24 Hr Interval Summary Constitutional: improved, no complaints ENT: no complaints Respiratory: no complaints Exam/Review of Systems Vital Signs Vitals Vital Signs Date Time Temp Pulse Resp B/P Pulse Ox O2 Delivery O2 Flow Rate FiO2 10/20/16 12:07 97 10/20/16 11:36 98.3 19 136/77 97 10/17/16 12:30 Room Air Intake and Output 10/19/16 10/19/16 10/20/16 15:00 23:00 07:00 Intake Total 2400 ml 770 ml Output Total 2400 ml 1025 ml Balance 0 ml -255 ml Exam Constitutional: alert, oriented Psych: no complaints Head: normocephalic Eyes: nl conjunctiva Neck: non-tender Respiratory: normal air movement Gastrointestinal: soft Results Result Diagram: 10/20/16 0717 10/20/16 0717 Results 24 hrs Laboratory Tests Test 10/19/16 17:25 10/19/16 20:57 10/20/16 07:17 10/20/16 08:07 Bedside Glucose 198 151 162 White Blood Count 15.7 H Red Blood Count 2.82 L Hemoglobin 8.2 L Hematocrit 25.4 L Mean Corpuscular Volume 90.1 Mean Corpuscular Hemoglobin 29.1 Mean Corpuscular Hemoglobin Concent 32.3 Red Cell Distribution Width 14.3 Platelet Count 259 Mean Platelet Volume 11.3 H Neutrophils % 87.3 H Lymphocytes % 5.9 L Monocytes % 5.2 Eosinophils % 0.3 Basophils % 0.3 Nucleated Red Blood Cells % 0.0 Neutrophils # 13.7 H Lymphocytes # 0.9 Monocytes # 0.8 Eosinophils # 0.0 Basophils # 0.0 Nucleated Red Blood Cells # 0.0 Sodium Level 132 L Potassium Level 3.6 Chloride Level 101 Carbon Dioxide Level 24 Anion Gap 11 Blood Urea Nitrogen 11 Creatinine 0.66 Glucose Level 165 Calcium Level 7.8 L Magnesium Level 2.1 Total Bilirubin 0.4 Direct Bilirubin 0.00 Indirect Bilirubin 0.4 Aspartate Amino Transf (AST/SGOT) 58 #H Alanine Aminotransferase (ALT/SGPT) 29 Alkaline Phosphatase 257 H Total Protein 6.2 Albumin 2.4 L Globulin 3.80 H Albumin/Globulin Ratio 0.63 Test 10/20/16 11:29 Bedside Glucose 202 Medications Medications Current Medications Sodium Chloride (NS) 1,000 ml @ 50 mls/hr Q20H IV Last administered on 03:16; Admin Dose 50 MLS/HR; Start 10/15/16 at 15:04 Ondansetron HCl (Zofran Inj) 4 mg Q6H PRN IV NAUSEA AND/OR VOMITING Last administered on 10/17/16 11:23; Admin Dose 4 MG; Start 10/15/16 at 15:30 Acetaminophen (Tylenol Tab) 650 mg Q6H PRN PO PAIN LEVEL 1-3 OR FEVER Last administered on 10/19/16 16:12; Admin Dose 650 MG; Start 10/15/16 at 15:30 Acetaminophen/ Hydrocodone Bitart ([place] (5/325)) 1 tab Q6H PRN PO MODERATE PAIN LEVEL 4-6 Last administered on 10/19/16 18:40; Admin Dose 1 TAB; Start at 15:30 Morphine Sulfate (morphine) 1 mg Q4H PRN IV SEVERE PAIN LEVEL 7-10 Last administered on 10/17/16 15:45; Admin Dose 1 MG; Start 10/15/16 at 15:30 Docusate Sodium (Colace) 100 mg Q12H PRN PO CONSTIPATION; Start 10/15/16 at 15: 30 Bisacodyl (Dulcolax) 5 mg DAILY PRN PO CONSTIPATION; Start 10/15/16 at 15:30 Miscellaneous Information 1 ea NOTE XX ; Start 10/15/16 at 15:30 Glucose (Glutose) 15 gm Q15M PRN PO DECREASED GLUCOSE; Start 10/15/16 at 15:30 Glucose (Glutose) 22.5 gm Q15M PRN PO DECREASED GLUCOSE; Start 10/15/16 at 15: 30 Dextrose (D50w Syringe) 25 ml Q15M PRN IV DECREASED GLUCOSE; Start 10/15/16 at 15:30 Dextrose (D50w Syringe) 50 ml Q15M PRN IV DECREASED GLUCOSE; Start 10/15/16 at 15:30 Glucagon (Glucagen) 1 mg Q15M PRN IM DECREASED GLUCOSE; Start 10/15/16 at 15:30 Glucose (Glutose) 15 gm Q15M PRN BUCCAL DECREASED GLUCOSE; Start 10/15/16 at 15 :30 Morphine Sulfate (morphine) 2 mg Q3H PRN IV PAIN LEVEL 7-10 Last administered on 10/18/16 15:16; Admin Dose 2 MG; Start 10/17/16 at 15:30 Famotidine (Pepcid) 20 mg Q12 PO Last administered on 10/20/16 08:12; Admin Dose 20 MG; Start 10/17/16 at 21:00 Diagnostic Test (Pha) 1 ea 1 ea 02 XX ; Start 10/19/16 at 02:00 Piperacillin Sod/ Tazobactam Sod 100 ml @ 200 mls/hr Q6 IVPB Last administered on 10/20/16 11:48; Admin Dose 200 MLS/HR; Start 10/18/16 at 18:00 Levofloxacin/ Dextrose (Levaquin 500mg/ D5W 100 ml (Pmx)) 100 ml @ 100 mls/hr Q24H IVPB Last administered on 10/19/16 15:06; Admin Dose 100 MLS/HR; Start at 15:00 Insulin Glargine 20 unit 20 unit DAILY@20 SC Last administered on 10/19/16 21: 05; Admin Dose 20 UNIT; Start 10/19/16 at 20:00 Sodium Chloride (NS) 1,000 ml @ 75 mls/hr [id number] IV Last administered on 10/20 04:20; Admin Dose 75 MLS/HR; Start 10/19/16 at 15:00 DEYSI ADRIAN MD Oct 20, 2016 13:55
[2016-10-20] MEDS: LEVOFLOXACIN 500MG/D5W (PMX) 100 ML IVPB SCH (15:54)
[2016-10-20] MEDS: ACETAMINOPHEN 325 MG TAB PO PRN ×2 (16:04→23:23)
--- NOTE | 2016-10-20 17:15 | PN ---
Date/Time of Note Date/Time of Note DATE: 10/20/16 TIME: 17:14 Assessment/Plan VTE Prophylaxis VTE Prophylaxis Intervention: SCD's Lines/Catheters [facility] (from [facility]): Peripheral IV Urinary Cath still in place: No Assessment/Plan Chief Complaint/Hosp Course 1. Atypical chest pain. Acute coronary syndrome was ruled out by negative troponin. EKG is negative. 2D echocardiogram demonstrated ejection fraction of 50%. Continue aspirin 2. Incidental finding of lung mass. Pulmonology has been consulted. Hematology/Oncology has been consulted. 3. Incidental finding of left lobe of the liver consistent with malignancy, likely metastasis from colon. General Surgery and Hematology/Oncology have been consulted. Status post liver biopsy follow up results of pathology. 4. Diabetes mellitus, better controlled. Increase Lantus, insulin sliding scale, start pre-meal insulin, continue low-carbohydrate diet. 5. Anemia. Will continue to monitor. 6. For deep venous thrombosis prophylaxis, SCD. 7. For gastrointestinal prophylaxis, on Pepcid. We will continue to monitor patient closely. Further recommendations, management and treatment as per hospital course Plan for chemo port placement and patient is afebrile Problems: Subjective 24 Hr Interval Summary Constitutional: no complaints Exam/Review of Systems Vital Signs Vitals Vital Signs Date Time Temp Pulse Resp B/P Pulse Ox O2 Delivery O2 Flow Rate FiO2 10/20/16 16:10 99 10/20/16 15:27 98.2 19 152/72 99 10/17/16 12:30 Room Air Intake and Output 10/19/16 10/19/16 10/20/16 15:00 23:00 07:00 Intake Total 2400 ml 770 ml Output Total 2400 ml 1025 ml Balance 0 ml -255 ml Exam Constitutional: alert Respiratory: clear to auscultation Cardiovascular: regular rate and rhythm Gastrointestinal: soft, No distended Musculoskeletal: nl extremities to inspection Results Result Diagram: 10/20/16 0717 10/20/16 0717 Results 24 hrs Laboratory Tests Test 10/19/16 17:25 10/19/16 20:57 10/20/16 07:17 10/20/16 08:07 Bedside Glucose 198 151 162 White Blood Count 15.7 H Red Blood Count 2.82 L Hemoglobin 8.2 L Hematocrit 25.4 L Mean Corpuscular Volume 90.1 Mean Corpuscular Hemoglobin 29.1 Mean Corpuscular Hemoglobin Concent 32.3 Red Cell Distribution Width 14.3 Platelet Count 259 Mean Platelet Volume 11.3 H Neutrophils % 87.3 H Lymphocytes % 5.9 L Monocytes % 5.2 Eosinophils % 0.3 Basophils % 0.3 Nucleated Red Blood Cells % 0.0 Neutrophils # 13.7 H Lymphocytes # 0.9 Monocytes # 0.8 Eosinophils # 0.0 Basophils # 0.0 Nucleated Red Blood Cells # 0.0 Sodium Level 132 L Potassium Level 3.6 Chloride Level 101 Carbon Dioxide Level 24 Anion Gap 11 Blood Urea Nitrogen 11 Creatinine 0.66 Glucose Level 165 Calcium Level 7.8 L Magnesium Level 2.1 Total Bilirubin 0.4 Direct Bilirubin 0.00 Indirect Bilirubin 0.4 Aspartate Amino Transf (AST/SGOT) 58 #H Alanine Aminotransferase (ALT/SGPT) 29 Alkaline Phosphatase 257 H Total Protein 6.2 Albumin 2.4 L Globulin 3.80 H Albumin/Globulin Ratio 0.63 Test 10/20/16 11:29 Bedside Glucose 202 Medications Medications Current Medications Sodium Chloride (NS) 1,000 ml @ 50 mls/hr Q20H IV Last administered on 03:16; Admin Dose 50 MLS/HR; Start 10/15/16 at 15:04 Ondansetron HCl (Zofran Inj) 4 mg Q6H PRN IV NAUSEA AND/OR VOMITING Last administered on 10/17/16 11:23; Admin Dose 4 MG; Start 10/15/16 at 15:30 Acetaminophen (Tylenol Tab) 650 mg Q6H PRN PO PAIN LEVEL 1-3 OR FEVER Last administered on 10/20/16 16:04; Admin Dose 650 MG; Start 10/15/16 at 15:30 Acetaminophen/ Hydrocodone Bitart ([place] (5/325)) 1 tab Q6H PRN PO MODERATE PAIN LEVEL 4-6 Last administered on 10/19/16 18:40; Admin Dose 1 TAB; Start at 15:30 Morphine Sulfate (morphine) 1 mg Q4H PRN IV SEVERE PAIN LEVEL 7-10 Last administered on 10/17/16 15:45; Admin Dose 1 MG; Start 10/15/16 at 15:30 Docusate Sodium (Colace) 100 mg Q12H PRN PO CONSTIPATION; Start 10/15/16 at 15: 30 Bisacodyl (Dulcolax) 5 mg DAILY PRN PO CONSTIPATION; Start 10/15/16 at 15:30 Miscellaneous Information 1 ea NOTE XX ; Start 10/15/16 at 15:30 Glucose (Glutose) 15 gm Q15M PRN PO DECREASED GLUCOSE; Start 10/15/16 at 15:30 Glucose (Glutose) 22.5 gm Q15M PRN PO DECREASED GLUCOSE; Start 10/15/16 at 15: 30 Dextrose (D50w Syringe) 25 ml Q15M PRN IV DECREASED GLUCOSE; Start 10/15/16 at 15:30 Dextrose (D50w Syringe) 50 ml Q15M PRN IV DECREASED GLUCOSE; Start 10/15/16 at 15:30 Glucagon (Glucagen) 1 mg Q15M PRN IM DECREASED GLUCOSE; Start 10/15/16 at 15:30 Glucose (Glutose) 15 gm Q15M PRN BUCCAL DECREASED GLUCOSE; Start 10/15/16 at 15 :30 Morphine Sulfate (morphine) 2 mg Q3H PRN IV PAIN LEVEL 7-10 Last administered on 10/18/16 15:16; Admin Dose 2 MG; Start 10/17/16 at 15:30 Famotidine (Pepcid) 20 mg Q12 PO Last administered on 10/20/16 08:12; Admin Dose 20 MG; Start 10/17/16 at 21:00 Diagnostic Test (Pha) 1 ea 1 ea 02 XX ; Start 10/19/16 at 02:00 Piperacillin Sod/ Tazobactam Sod 100 ml @ 200 mls/hr Q6 IVPB Last administered on 10/20/16 11:48; Admin Dose 200 MLS/HR; Start 10/18/16 at 18:00 Levofloxacin/ Dextrose (Levaquin 500mg/ D5W 100 ml (Pmx)) 100 ml @ 100 mls/hr Q24H IVPB Last administered on 10/20/16 15:54; Admin Dose 100 MLS/HR; Start at 15:00 Insulin Glargine 20 unit 20 unit DAILY@20 SC Last administered on 10/19/16 21: 05; Admin Dose 20 UNIT; Start 10/19/16 at 20:00 Sodium Chloride (NS) 1,000 ml @ 75 mls/hr [id number] IV Last administered on 4/29 /17at 04:20; Admin Dose 75 MLS/HR; Start 10/19/16 at 15:00 CULLEN TEJADA Oct 20, 2016 17:15
[2016-10-20] MEDS: INSULIN GLARGINE [LANtus] 3 ML PEN SC SCH (21:44)
[2016-10-21] VITALS (12 sets, daily range): BP systolic 116–142; BP diastolic 62–85; PULSE 80–89; RESP 17–20
[2016-10-21] MEDS: ACCU-CHEK XX SCH ×2 (01:52→23:40)
[2016-10-21] MEDS: PIPER-TAZO 3.375 GM IV (PMX) 100 ML IVPB SCH ×4 (05:06→23:39)
[2016-10-21] MEDS: ACETAMINOPHEN 325 MG TAB PO PRN (05:13)
[2016-10-21] MEDS: SOD CHLORIDE 0.9% 1,000 ML IV SCH ×2 (07:00→21:01)
[2016-10-21] MEDS: INSULIN ASPART [NOVOLOG] 3 ML PEN SC SCH ×7 (08:00→21:00)
[2016-10-21] MEDS: FAMOTIDINE 20 MG TAB PO SCH ×2 (08:29→21:01)
[2016-10-21] MEDS: HYDROCODONE/APAP (5/325) TAB PO PRN ×2 (08:30→15:25)
[2016-10-21 10:07] LABS: ADD SCAN DIFF NO
[2016-10-21 10:09] LABS: BASOPHIL # 0.1 10^3/ul (0.0-0.1); BASOPHILS % 0.4 % (0.0-2.0); EOSINOPHILS # 0.1 10^3/ul (0.0-0.5); EOSINOPHILS % 0.9 % (0.0-7.0); HEMATOCRIT 26.7 % (42.0-52.0); HEMOGLOBIN 8.6 g/dl (14.0-18.0); LYMPHOCYTES # 0.8 10^3/ul (0.8-2.9); LYMPHOCYTES % 7.2 % (15.0-51.0); MEAN CORPUSCULAR HGB CONC 32.2 g/dl (32.0-37.0); MEAN CORPUSCULAR VOLUME 89.9 fl (82.0-101.0); MEAN PLATELET VOLUME 11.1 fl (7.4-10.4); MONOCYTE # 0.5 10^3/ul (0.3-0.9); MONOCYTES % 4.3 % (0.0-11.0); NEUTROPHIL # 9.8 10^3/ul (1.6-7.5); NEUTROPHILS % 86.2 % (39.0-77.0); PLATELET COUNT 328 10^3/UL (140-415); RED BLOOD COUNT 2.97 10^6/ul (4.70-6.10); RED CELL DISTRIBUTION WIDTH 14.3 % (11.5-14.5); WHITE BLOOD COUNT 11.3 10^3/ul (4.8-10.8)
[2016-10-21 10:29] LABS: POTASSIUM 3.4 mmol/L (3.5-5.1)
[2016-10-21 10:32] LABS: CALCIUM 8.1 mg/dl (8.4-10.2); CREATININE 0.61 mg/dl (0.61-1.24)
[2016-10-21] MEDS ORDERED: POTASSIUM CHLORIDE (SR) 20 MEQ TAB PO STA (14:33)
[2016-10-21] MEDS: LEVOFLOXACIN 500MG/D5W (PMX) 100 ML IVPB SCH (15:19)
--- NOTE | 2016-10-21 17:54 | PN ---
Date/Time of Note Date/Time of Note DATE: 10/21/16 TIME: 17:51 Assessment/Plan VTE Prophylaxis VTE Prophylaxis Intervention: SCD's Lines/Catheters IV C[facility]ter Type (from [facility]): Peripheral IV Urinary Cath still in place: No Assessment/Plan Chief Complaint/Hosp Course 1. Atypical chest pain. Acute coronary syndrome was ruled out by negative troponin. EKG is negative. 2D echocardiogram demonstrated ejection fraction of 50%. Continue aspirin 2. Incidental finding of lung mass. Pulmonology has been consulted. Hematology/Oncology has been consulted. 3. Incidental finding of left lobe of the liver consistent with malignancy, likely metastasis from colon. General Surgery and Hematology/Oncology have been consulted. Status post liver biopsy follow up results of pathology. 4. Diabetes mellitus, better controlled. Increase Lantus, insulin sliding scale, start pre-meal insulin, continue low-carbohydrate diet. 5. Anemia. Will continue to monitor. 6. For deep venous thrombosis prophylaxis, SCD. 7. For gastrointestinal prophylaxis, on Pepcid. We will continue to monitor patient closely. Further recommendations, management and treatment as per hospital course Plan for chemo port placement when is persistently afebrile which he has been for the past several days, defer placement of Chemo-Port to oncology Problems: Subjective 24 Hr Interval Summary Constitutional: no complaints Exam/Review of Systems Vital Signs Vitals Vital Signs Date Time Temp Pulse Resp B/P Pulse Ox O2 Delivery O2 Flow Rate FiO2 10/21/16 16:09 82 10/21/16 16:00 98.8 18 133/76 97 10/17/16 12:30 Room Air Intake and Output 10/20/16 10/20/16 10/21/16 15:00 23:00 07:00 Intake Total 2425 ml Output Total 1250 ml Balance 1175 ml Exam Constitutional: alert Respiratory: clear to auscultation Cardiovascular: regular rate and rhythm Gastrointestinal: soft, No distended Musculoskeletal: nl extremities to inspection Results Result Diagram: 10/21/1635 10/21/16 0935 Results 24 hrs Laboratory Tests Test 10/20/16 20:51 10/20/16 23:26 10/21/16 08:28 10/21/16 09:35 Bedside Glucose 185 132 132 White Blood Count 11.3 #H Red Blood Count 2.97 L Hemoglobin 8.6 L Hematocrit 26.7 L Mean Corpuscular Volume 89.9 Mean Corpuscular Hemoglobin 29.0 Mean Corpuscular Hemoglobin Concent 32.2 Red Cell Distribution Width 14.3 Platelet Count 328 # Mean Platelet Volume 11.1 H Neutrophils % 86.2 H Lymphocytes % 7.2 L Monocytes % 4.3 Eosinophils % 0.9 Basophils % 0.4 Nucleated Red Blood Cells % 0.0 Neutrophils # 9.8 H Lymphocytes # 0.8 Monocytes # 0.5 Eosinophils # 0.1 Basophils # 0.1 Nucleated Red Blood Cells # 0.0 Sodium Level 135 Potassium Level 3.4 L Chloride Level 100 Carbon Dioxide Level 24 Anion Gap 14 Blood Urea Nitrogen 8 Creatinine 0.61 Glucose Level 222 H Calcium Level 8.1 L Test 10/21/16 12:08 10/21/16 17:15 Bedside Glucose 177 135 Medications Medications Current Medications Ondansetron HCl (Zofran Inj) 4 mg Q6H PRN IV NAUSEA AND/OR VOMITING Last administered on 10/17/16 11:23; Admin Dose 4 MG; Start 10/15/16 at 15:30 Acetaminophen (Tylenol Tab) 650 mg Q6H PRN PO PAIN LEVEL 1-3 OR FEVER Last administered on 10/21/16 05:13; Admin Dose 650 MG; Start 10/15/16 at 15:30 Acetaminophen/ Hydrocodone Bitart ([place] (5/325)) 1 tab Q6H PRN PO MODERATE PAIN LEVEL 4-6 Last administered on 10/21/16 15:25; Admin Dose 1 TAB; Start at 15:30 Morphine Sulfate (morphine) 1 mg Q4H PRN IV SEVERE PAIN LEVEL 7-10 Last administered on 10/17/16 15:45; Admin Dose 1 MG; Start 10/15/16 at 15:30 Docusate Sodium (Colace) 100 mg Q12H PRN PO CONSTIPATION; Start 10/15/16 at 15: 30 Bisacodyl (Dulcolax) 5 mg DAILY PRN PO CONSTIPATION; Start 10/15/16 at 15:30 Miscellaneous Information 1 ea NOTE XX ; Start 10/15/16 at 15:30 Glucose (Glutose) 15 gm Q15M PRN PO DECREASED GLUCOSE; Start 10/15/16 at 15:30 Glucose (Glutose) 22.5 gm Q15M PRN PO DECREASED GLUCOSE; Start 10/15/16 at 15: 30 Dextrose (D50w Syringe) 25 ml Q15M PRN IV DECREASED GLUCOSE; Start 10/15/16 at 15:30 Dextrose (D50w Syringe) 50 ml Q15M PRN IV DECREASED GLUCOSE; Start 10/15/16 at 15:30 Glucagon (Glucagen) 1 mg Q15M PRN IM DECREASED GLUCOSE; Start 10/15/16 at 15:30 Glucose (Glutose) 15 gm Q15M PRN BUCCAL DECREASED GLUCOSE; Start 10/15/16 at 15 :30 Morphine Sulfate (morphine) 2 mg Q3H PRN IV PAIN LEVEL 7-10 Last administered on 10/18/16 15:16; Admin Dose 2 MG; Start 10/17/16 at 15:30 Famotidine (Pepcid) 20 mg Q12 PO Last administered on 10/21/16 08:29; Admin Dose 20 MG; Start 10/17/16 at 21:00 Diagnostic Test (Pha) 1 ea 1 ea 02 XX ; Start 10/19/16 at 02:00 Piperacillin Sod/ Tazobactam Sod 100 ml @ 200 mls/hr Q6 IVPB Last administered on 10/21/16 17:17; Admin Dose 200 MLS/HR; Start 10/18/16 at 18:00 Levofloxacin/ Dextrose (Levaquin 500mg/ D5W 100 ml (Pmx)) 100 ml @ 100 mls/hr Q24H IVPB Last administered on 10/21/16 15:19; Admin Dose 100 MLS/HR; Start at 15:00 Insulin Glargine 20 unit 20 unit DAILY@20 SC Last administered on 10/20/16 21: 44; Admin Dose 20 UNIT; Start 10/19/16 at 20:00 Sodium Chloride (NS) 1,000 ml @ 75 mls/hr [id number] IV Last administered on 10/20 23:11; Admin Dose 75 MLS/HR; Start 10/19/16 at 15:00 CULLEN TEJADA Oct 21, 2016 17:53
[2016-10-21] MEDS: INSULIN GLARGINE [LANtus] 3 ML PEN SC SCH (21:04)
[2016-10-22] VITALS (12 sets, daily range): BP systolic 131–152; BP diastolic 71–81; PULSE 80–92; RESP 18–20
[2016-10-22] MEDS: PIPER-TAZO 3.375 GM IV (PMX) 100 ML IVPB SCH ×3 (05:40→17:59)
[2016-10-22] MEDS: ACETAMINOPHEN 325 MG TAB PO PRN ×2 (05:42→11:59)
[2016-10-22 07:59] LABS: ADD SCAN DIFF NO
[2016-10-22] MEDS: INSULIN ASPART [NOVOLOG] 3 ML PEN SC SCH ×7 (08:00→21:00)
[2016-10-22 08:02] LABS: BASOPHIL # 0.1 10^3/ul (0.0-0.1); BASOPHILS % 0.6 % (0.0-2.0); EOSINOPHILS # 0.1 10^3/ul (0.0-0.5); EOSINOPHILS % 1.1 % (0.0-7.0); HEMATOCRIT 26.9 % (42.0-52.0); HEMOGLOBIN 8.5 g/dl (14.0-18.0); LYMPHOCYTES # 1.1 10^3/ul (0.8-2.9); LYMPHOCYTES % 11.7 % (15.0-51.0); MEAN CORPUSCULAR HEMOGLOBIN 28.7 pg (29.0-33.0); MEAN CORPUSCULAR HGB CONC 31.6 g/dl (32.0-37.0); MEAN CORPUSCULAR VOLUME 90.9 fl (82.0-101.0); MEAN PLATELET VOLUME 10.9 fl (7.4-10.4); MONOCYTE # 0.6 10^3/ul (0.3-0.9); MONOCYTES % 6.3 % (0.0-11.0); NEUTROPHIL # 7.6 10^3/ul (1.6-7.5); PLATELET COUNT 325 10^3/UL (140-415); RED BLOOD COUNT 2.96 10^6/ul (4.70-6.10); RED CELL DISTRIBUTION WIDTH 14.5 % (11.5-14.5); WHITE BLOOD COUNT 9.6 10^3/ul (4.8-10.8)
[2016-10-22 08:19] LABS: CALCIUM 7.9 mg/dl (8.4-10.2); CREATININE 0.62 mg/dl (0.61-1.24); POTASSIUM 3.7 mmol/L (3.5-5.1)
[2016-10-22] MEDS: FAMOTIDINE 20 MG TAB PO SCH ×2 (08:44→21:40)
[2016-10-22] MEDS: SOD CHLORIDE 0.9% 1,000 ML IV SCH ×3 (08:45→23:00)
--- NOTE | 2016-10-22 14:27 | CONS ---
Date/Time of Note Date/Time of Note DATE: 10/22/16 TIME: 14:24 Assessment/Plan Assessment/Plan Chief Complaint/Hosp Course The patient is a 51 year old male previously treated by Dr. Joy (need to verify prior cancer history an treatment course with Dr. Joy) with a history of alcoholic cirrhosis, DM, history of colorectal cancer status post surgery, chemo and radiation per patient's in 2014, now presenting with new metastatic disease to the liver and lung. CT reveals moderate mediastinal, prevascular space and retrosternal lymphadenopathy, numerous bilateral noncalcified pulmonary nodules up to 1.3 cm consistent with metastasis, and extensive inhomogeneous ill-defined low density lesions involving the right left lobes of the liver consistent with malignancy likely metastasis though multi focal hepatic cellular carcinoma cannot be excluded with findings suggestive of cirrhosis. - Requesting records from Dr. Joy's office - Liver/lung lesions concerning for metastatic colorectal cancer with CT A/P multiphase demonstrating 1. Widespread diffuse hepatic metastases. 2. Widespread diffuse pulmonary metastases. 3. Diffuse lymphatic spread of neoplasm to the retroperitoneal, retrocrural, valeri hepatis, epigastric, and pericardiac lymph node stations. #metastatic cancer - status post liver biopsy 10/17/16, prelim shows poorly differentiated metastatic adenocarcinoma, pending IHC and neuroendocrine stains. will follow up final path - pt now afebrile. all cultures are negative. port can be placed in anticipation for chemotherapy - will request KRAS, NRAS, BRAF, MSI testing on path specimen - monitor LFTs status post liver biopsy, AST elevated from 48 to 385 now improved to 122, bili normal at 0.4 - CEA elevated at 38.8 (normal 0-5), CA 19-9 mildly elevated at 46.4, AFP normal at 1.63 - HIV, hep panel neg # Normocytic anemia, slight drop to 8.9, monitor - Iron panel consistent with anemia of chronic inflammation - Vitamin B12 and folate normal, TSH WNL, retic count inappropriately low; LDH elevated at 2209 likely due to metastatic cancer, haptoglobin not suppressed arguing against hemolysis # Fever, monitor per hospitalist, Blood Cx are negative, patient started on Zosyn. Patient continues to be febrile, tachycardic with worsening leukocytosis. Will continue to follow Problems: Consultation Date/Type/Reason Admit Date/Time Oct 15, 2016 at 12:31 Initial Consult Date 10/15/16 Type of Consultation: Oncology Reason for Consultation colorectal cancer Referring Provider: DANIELE HALLMAN MD, [facility] 24 HR Interval Summary Free Text/Dictation no acute overnight events. patient is afebrile Exam/Review of Systems Vital Signs Vitals Vital Signs Date Time Temp Pulse Resp B/P Pulse Ox O2 Delivery O2 Flow Rate FiO2 10/22/16 12:26 81 10/22/16 11:32 98.2 20 131/73 96 Intake and Output 10/21/16 10/21/16 10/22/16 15:00 23:00 07:00 Intake Total 2525 ml 1625 ml Output Total 1200 ml 850 ml Balance 1325 ml 775 ml Exam Constitutional: alert, oriented Psych: nl mood/affect, no complaints Head: normocephalic Eyes: nl conjunctiva ENMT: nl external ears & nose Neck: non-tender, supple Respiratory: clear to auscultation, normal air movement Cardiovascular: regular rate and rhythm Gastrointestinal: soft Musculoskeletal: nl extremities to inspection, nl gait and stance Extremities: normal pulses Results Result Diagram: 10/22/1626 10/22/16 0624 Results 24 hrs Laboratory Tests Test 10/21/16 17:15 10/21/16 20:07 10/22/16 06:24 10/22/16 06:26 Bedside Glucose 135 150 Sodium Level 132 L Potassium Level 3.7 Chloride Level 103 Carbon Dioxide Level 23 Anion Gap 10 Blood Urea Nitrogen 7 Creatinine 0.62 Glucose Level 111 # Calcium Level 7.9 L White Blood Count 9.6 Red Blood Count 2.96 L Hemoglobin 8.5 L Hematocrit 26.9 L Mean Corpuscular Volume 90.9 Mean Corpuscular Hemoglobin 28.7 L Mean Corpuscular Hemoglobin Concent 31.6 L Red Cell Distribution Width 14.5 Platelet Count 325 Mean Platelet Volume 10.9 H Neutrophils % 79.0 H Lymphocytes % 11.7 L Monocytes % 6.3 Eosinophils % 1.1 Basophils % 0.6 Nucleated Red Blood Cells % 0.0 Neutrophils # 7.6 H Lymphocytes # 1.1 Monocytes # 0.6 Eosinophils # 0.1 Basophils # 0.1 Nucleated Red Blood Cells # 0.0 Test 10/22/16 07:44 10/22/16 11:52 Bedside Glucose 114 137 Medications Medications Current Medications Ondansetron HCl (Zofran Inj) 4 mg Q6H PRN IV NAUSEA AND/OR VOMITING Last administered on 10/17/16 11:23; Admin Dose 4 MG; Start 10/15/16 at 15:30 Acetaminophen (Tylenol Tab) 650 mg Q6H PRN PO PAIN LEVEL 1-3 OR FEVER Last administered on 10/22/16 11:59; Admin Dose 650 MG; Start 10/15/16 at 15:30 Acetaminophen/ Hydrocodone Bitart ([place] (5/325)) 1 tab Q6H PRN PO MODERATE PAIN LEVEL 4-6 Last administered on 10/21/16 15:25; Admin Dose 1 TAB; Start at 15:30 Morphine Sulfate (morphine) 1 mg Q4H PRN IV SEVERE PAIN LEVEL 7-10 Last administered on 10/17/16 15:45; Admin Dose 1 MG; Start 10/15/16 at 15:30 Docusate Sodium (Colace) 100 mg Q12H PRN PO CONSTIPATION Last administered on 05:55; Admin Dose 100 MG; Start 10/15/16 at 15:30 Bisacodyl (Dulcolax) 5 mg DAILY PRN PO CONSTIPATION Last administered on 05:55; Admin Dose 5 MG; Start 10/15/16 at 15:30 Miscellaneous Information 1 ea NOTE XX ; Start 10/15/16 at 15:30 Glucose (Glutose) 15 gm Q15M PRN PO DECREASED GLUCOSE; Start 10/15/16 at 15:30 Glucose (Glutose) 22.5 gm Q15M PRN PO DECREASED GLUCOSE; Start 10/15/16 at 15: 30 Dextrose (D50w Syringe) 25 ml Q15M PRN IV DECREASED GLUCOSE; Start 10/15/16 at 15:30 Dextrose (D50w Syringe) 50 ml Q15M PRN IV DECREASED GLUCOSE; Start 10/15/16 at 15:30 Glucagon (Glucagen) 1 mg Q15M PRN IM DECREASED GLUCOSE; Start 10/15/16 at 15:30 Glucose (Glutose) 15 gm Q15M PRN BUCCAL DECREASED GLUCOSE; Start 10/15/16 at 15 :30 Morphine Sulfate (morphine) 2 mg Q3H PRN IV PAIN LEVEL 7-10 Last administered on 10/18/16 15:16; Admin Dose 2 MG; Start 10/17/16 at 15:30 Famotidine (Pepcid) 20 mg Q12 PO Last administered on 10/22/16 08:44; Admin Dose 20 MG; Start 10/17/16 at 21:00 Diagnostic Test (Pha) 1 ea 1 ea 02 XX ; Start 10/19/16 at 02:00 Piperacillin Sod/ Tazobactam Sod 100 ml @ 200 mls/hr Q6 IVPB Last administered on 10/22/16 11:59; Admin Dose 200 MLS/HR; Start 10/18/16 at 18:00 Levofloxacin/ Dextrose (Levaquin 500mg/ D5W 100 ml (Pmx)) 100 ml @ 100 mls/hr Q24H IVPB Last administered on 10/21/16 15:19; Admin Dose 100 MLS/HR; Start at 15:00 Insulin Glargine 20 unit 20 unit DAILY@20 SC Last administered on 10/21/16 21: 04; Admin Dose 20 UNIT; Start 10/19/16 at 20:00 Sodium Chloride (NS) 1,000 ml @ 75 mls/hr [id number] IV Last administered on 12:07; Admin Dose 75 MLS/HR; Start 10/19/16 at 15:00 AMITA MALONE M.D. October 22, 2016 14:27
--- NOTE | 2016-10-22 14:29 | PN ---
Date/Time of Note Date/Time of Note DATE: 10/22/16 TIME: 14:23 Assessment/Plan VTE Prophylaxis VTE Prophylaxis Intervention: LMWH Lines/Catheters IV C[facility]ter Type (from [facility] Peripheral IV Urinary Cath still in place: No Assessment/Plan Chief Complaint/Hosp Course Assessment 1. History of colorectal cancer now with evidence of extensive metastatic disease 2. Anemia likely of chronic disease 3. 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 Resolved fevers Plan 1. Port-A-Cath placement 2. Continue current antibiotics 3. Hopefully discharge tomorrow when stable Problems: Subjective 24 Hr Interval Summary Free Text/Dictation Comfortable. No new events. No fevers Exam/Review of Systems Vital Signs Vitals Vital Signs Date Time Temp Pulse Resp B/P Pulse Ox O2 Delivery O2 Flow Rate FiO2 10/22/16 12:26 81 10/22/16 11:32 98.2 20 131/73 96 Intake and Output 10/21/16 10/21/16 10/22/16 15:00 23:00 07:00 Intake Total 2525 ml 1625 ml Output Total 1200 ml 850 ml Balance 1325 ml 775 ml Exam GENERAL: Patient comfortable at rest no new events VITAL SIGNS: per chart NECK: Supple. No JVD or lymphadenopathy. CARDIAC EXAM: S1, S2. No added sounds or murmurs. CHEST: clear bilaterally, No added sounds, rales or wheezes ABDOMEN: Soft, nontender. No guarding or rebound. EXTREMITIES: No cyanosis, clubbing or edema. NEUROLOGIC: Generalized weakness. No focal deficits. Results Result Diagram: 10/22/16 0626 10/22/16 0624 Results 24 hrs Laboratory Tests Test 10/21/16 17:15 10/21/16 20:07 10/22/16 06:24 10/22/16 06:26 Bedside Glucose 135 150 Sodium Level 132 L Potassium Level 3.7 Chloride Level 103 Carbon Dioxide Level 23 Anion Gap 10 Blood Urea Nitrogen 7 Creatinine 0.62 Glucose Level 111 # Calcium Level 7.9 L White Blood Count 9.6 Red Blood Count 2.96 L Hemoglobin 8.5 L Hematocrit 26.9 L Mean Corpuscular Volume 90.9 Mean Corpuscular Hemoglobin 28.7 L Mean Corpuscular Hemoglobin Concent 31.6 L Red Cell Distribution Width 14.5 Platelet Count 325 Mean Platelet Volume 10.9 H Neutrophils % 79.0 H Lymphocytes % 11.7 L Monocytes % 6.3 Eosinophils % 1.1 Basophils % 0.6 Nucleated Red Blood Cells % 0.0 Neutrophils # 7.6 H Lymphocytes # 1.1 Monocytes # 0.6 Eosinophils # 0.1 Basophils # 0.1 Nucleated Red Blood Cells # 0.0 Test 10/22/16 07:44 10/22/16 11:52 Bedside Glucose 114 137 Medications Medications Current Medications Ondansetron HCl (Zofran Inj) 4 mg Q6H PRN IV NAUSEA AND/OR VOMITING Last administered on 10/17/16 11:23; Admin Dose 4 MG; Start 10/15/16 at 15:30 Acetaminophen (Tylenol Tab) 650 mg Q6H PRN PO PAIN LEVEL 1-3 OR FEVER Last administered on 10/22/16 11:59; Admin Dose 650 MG; Start 10/15/16 at 15:30 Acetaminophen/ Hydrocodone Bitart ([place] (5/325)) 1 tab Q6H PRN PO MODERATE PAIN LEVEL 4-6 Last administered on 10/21/16 15:25; Admin Dose 1 TAB; Start at 15:30 Morphine Sulfate (morphine) 1 mg Q4H PRN IV SEVERE PAIN LEVEL 7-10 Last administered on 10/17/16 15:45; Admin Dose 1 MG; Start 10/15/16 at 15:30 Docusate Sodium (Colace) 100 mg Q12H PRN PO CONSTIPATION Last administered on 05:55; Admin Dose 100 MG; Start 10/15/16 at 15:30 Bisacodyl (Dulcolax) 5 mg DAILY PRN PO CONSTIPATION Last administered on 05:55; Admin Dose 5 MG; Start 10/15/16 at 15:30 Miscellaneous Information 1 ea NOTE XX ; Start 10/15/16 at 15:30 Glucose (Glutose) 15 gm Q15M PRN PO DECREASED GLUCOSE; Start 10/15/16 at 15:30 Glucose (Glutose) 22.5 gm Q15M PRN PO DECREASED GLUCOSE; Start 10/15/16 at 15: 30 Dextrose (D50w Syringe) 25 ml Q15M PRN IV DECREASED GLUCOSE; Start 10/15/16 at 15:30 Dextrose (D50w Syringe) 50 ml Q15M PRN IV DECREASED GLUCOSE; Start 10/15/16 at 15:30 Glucagon (Glucagen) 1 mg Q15M PRN IM DECREASED GLUCOSE; Start 10/15/16 at 15:30 Glucose (Glutose) 15 gm Q15M PRN BUCCAL DECREASED GLUCOSE; Start 10/15/16 at 15 :30 Morphine Sulfate (morphine) 2 mg Q3H PRN IV PAIN LEVEL 7-10 Last administered on 10/18/16 15:16; Admin Dose 2 MG; Start 10/17/16 at 15:30 Famotidine (Pepcid) 20 mg Q12 PO Last administered on 10/22/16 08:44; Admin Dose 20 MG; Start 10/17/16 at 21:00 Diagnostic Test (Pha) 1 ea 1 ea 02 XX ; Start 10/19/16 at 02:00 Piperacillin Sod/ Tazobactam Sod 100 ml @ 200 mls/hr Q6 IVPB Last administered on 10/22/16 11:59; Admin Dose 200 MLS/HR; Start 10/18/16 at 18:00 Levofloxacin/ Dextrose (Levaquin 500mg/ D5W 100 ml (Pmx)) 100 ml @ 100 mls/hr Q24H IVPB Last administered on 10/21/16 15:19; Admin Dose 100 MLS/HR; Start at 15:00 Insulin Glargine 20 unit 20 unit DAILY@20 SC Last administered on 10/21/16 21: 04; Admin Dose 20 UNIT; Start 10/19/16 at 20:00 Sodium Chloride (NS) 1,000 ml @ 75 mls/hr [id number] IV Last administered on 12:07; Admin Dose 75 MLS/HR; Start 10/19/16 at 15:00 DANIELE HALLMAN MD, [facility] October 22, 2016 14:29
[2016-10-22] MEDS: LEVOFLOXACIN 500MG/D5W (PMX) 100 ML IVPB SCH (15:49)
[2016-10-22] MEDS: HYDROCODONE/APAP (5/325) TAB PO PRN (18:06)
[2016-10-22] MEDS: INSULIN GLARGINE [LANtus] 3 ML PEN SC SCH (20:00)
[2016-10-22] MEDS ORDERED: INSULIN GLARGINE [LANtus] 3 ML PEN SC ONE (22:00)
[2016-10-23] VITALS (8 sets, daily range): BP systolic 123–138; BP diastolic 69–86; PULSE 80–90; RESP 18–22
[2016-10-23] MEDS: PIPER-TAZO 3.375 GM IV (PMX) 100 ML IVPB SCH ×3 (00:40→13:11)
[2016-10-23] MEDS: ACCU-CHEK XX SCH (02:15)
[2016-10-23] MEDS: morphine 2 MG INJ IV PRN (05:15)
[2016-10-23] MEDS: SOD CHLORIDE 0.9% 1,000 ML IV SCH (05:15)
[2016-10-23 07:21] LABS: ADD SCAN DIFF NO
[2016-10-23 07:38] LABS: BASOPHIL # 0.1 10^3/ul (0.0-0.1); BASOPHILS % 0.7 % (0.0-2.0); EOSINOPHILS # 0.1 10^3/ul (0.0-0.5); EOSINOPHILS % 1.6 % (0.0-7.0); HEMOGLOBIN 8.6 g/dl (14.0-18.0); LYMPHOCYTES % 11.3 % (15.0-51.0); MEAN CORPUSCULAR HEMOGLOBIN 28.9 pg (29.0-33.0); MEAN CORPUSCULAR HGB CONC 31.9 g/dl (32.0-37.0); MEAN CORPUSCULAR VOLUME 90.6 fl (82.0-101.0); MEAN PLATELET VOLUME 10.9 fl (7.4-10.4); MONOCYTE # 0.6 10^3/ul (0.3-0.9); MONOCYTES % 6.9 % (0.0-11.0); NEUTROPHIL # 6.9 10^3/ul (1.6-7.5); NEUTROPHILS % 78.2 % (39.0-77.0); PLATELET COUNT 308 10^3/UL (140-415); RED BLOOD COUNT 2.98 10^6/ul (4.70-6.10); RED CELL DISTRIBUTION WIDTH 14.6 % (11.5-14.5); WHITE BLOOD COUNT 8.8 10^3/ul (4.8-10.8)
[2016-10-23 07:49] LABS: CALCIUM 8.1 mg/dl (8.4-10.2); CREATININE 0.61 mg/dl (0.61-1.24); PHOSPHORUS 1.9 mg/dl (2.5-4.9); POTASSIUM 4.3 mmol/L (3.5-5.1)
[2016-10-23] MEDS: INSULIN ASPART [NOVOLOG] 3 ML PEN SC SCH ×4 (08:00→13:18)
[2016-10-23] MEDS: FAMOTIDINE 20 MG TAB PO SCH (09:06)
[2016-10-23] MEDS ORDERED: POLYMYXIN/BACITRACIN 1L IRRIG IRR ONE (11:00)
[2016-10-23] MEDS ORDERED: SOD CHLORIDE 0.9% 1,000 ML IV SCH (11:00)
[2016-10-23] MEDS ORDERED: CEFAZOLIN 1 GM/50 ML (PMX) 50 ML IVPB ONE ×2 (11:00→11:29)
[2016-10-23] MEDS ORDERED: HEPARIN 1000 UNITS/ML 10 ML INJ ONE (11:00)
[2016-10-23] MEDS ORDERED: FENTAnyl 50 MCG/ML VIAL ONE (11:30)
[2016-10-23] MEDS ORDERED: POLYMYXIN/BACITRACIN 1L IRRIG IRR SCH (11:30)
[2016-10-23] MEDS ORDERED: LIDOCAINE 2%/EPI (MDV) 20ML INJ INJ SCH (11:30)
[2016-10-23] MEDS ORDERED: MIDAZOLAM 1 MG/ML 2 ML INJ ONE (11:30)
[2016-10-23] MEDS ORDERED: DIPHENHYDRAMINE 50 MG INJ ONE (11:30)
--- NOTE | 2016-10-23 12:35 | RADRPT ---
PROCEDURE: FLUOROSCOPIC AND ULTRASONOGRAPHIC-GUIDED PLACEMENT OF RIGHT CHEST PORT. CLINICAL INDICATION: History of lymphoma. Venous access for chemotherapy. TECHNIQUE: INTRAPROCEDURE MEDICATIONS: PB antibiotic solution 40 cc applied topically. 1 gram Ancef intravenous ly, intra-op. IV Versed and Fentanyl per protocol. Informed consent was obtained. The procedure, risks, benefits, complications and alternatives were explained to the patient. Risks including bleeding, infection, and pneumothorax were explained. The patient understood and was willing to proceed. A procedural pause was performed. The patient's name, date of , and procedure to be performed w ere verified. The central line was inserted with all elements of maximal sterile barrier technique. All of the fol lowing were used: head covering, facial mask, sterile gown, sterile gloves, a large sterile sheet, h and hygiene, and 2% chlorhexidine for cutaneous antisepsis. The right neck and anterior/superior chest wall were prepped and draped in usual sterile fashion. Limited sonography of the right neck was then performed. Noted is a patent right internal jugular ve in. Following the local injection of 1% lidocaine, the right internal jugular vein was punctured under s onographic guidance with a 20-gauge needle through which a 0.018 inch floppy tip guidewire was advan zach into the superior vena cava with fluoroscopic guidance. The tract was dilated to 5 [place] and the wire was then replaced with a 0.035 in Amplatz guidewire. Serial dilatation was then performed and a 8 [place] peel away sheath was introduced. A site just inferior to the clavicle in the superior anterior right chest wall was localized. One pe rcent lidocaine was used as local anesthesia. A transverse 2.5 cm incision was made utilizing a 15 b lade scalpel. Utilizing blunt dissection a subcutaneous pocket was created inferior to the incision. The cavity was flushed with approximately 40 cc of PB antibiotic solution. The catheter was tunneled underneath the skin from the newly created pocket to the puncture site in the neck. The central line catheter was pulled through the tract. The catheter was then advanced thr ough the sheath until the tip was positioned in the right atrium. The peel-away sheath was removed. The catheter was flushed and clamped. The 8.0 [place] catheter was then connected to the Angiodynamics power port. The port was then placed into the pocket. Prior to closing the instrument and sponge count was verified and was correct. The subcutaneous tissue was closed with 3-0 Vicryl interrupted suture. The skin at the site of the pock et and in the neck was closed with 4-0 Vicryl suture in a running subcuticular technique. The port w as flushed with 1500 units of heparin in 1.5 cc utilizing a Iverson needle. The needle was removed. A dressing was applied. The patient tolerated procedure well. COMPARISON: None. FINDINGS: Ultrasound images were recorded and stored in the patient's medical record. Final radiographic images demonstrate the tip of the catheter in the upper right atrium. A total of 0.1 minutes of fluoroscopy time was used. The ultrasound images demonstrate the needle entering th e internal jugular vein. IMPRESSION: 1. Successful ultrasonographic and fluoroscopic guided placement of right chest power port. RPTAT: QQ .Malachi Dorsey MD, Date Time Electronically viewed and signed by .Malachi Dorsey MD, on 10/23/2016 12:35 .R/
--- NOTE | 2016-10-23 12:36 | RADRPT ---
PROCEDURE: Ultrasound guidance for placement of needle in right internal jugular vein. CLINICAL INDICATION: Venous access. TECHNIQUE: Prior to the procedure, informed consent was obtained. Risks including bleeding, infection, and pneu mothorax were explained to the patient. The patient understood and was willing to proceed. A procedu ral pause was performed. The patient's name, date of , and procedure to be performed were verif ied. The central line was inserted with all elements of maximal sterile barrier technique. All of th e following were used: head covering, facial mask, sterile gown, sterile gloves, a large sterile she et, hand hygiene, and 2% chlorhexidine for cutaneous antisepsis. The right neck and anterior/super ior chest wall was prepped and draped in usual sterile fashion. Limited sonography of the right neck was then performed. Noted is a patent right internal jugular ve in. Ultrasound images were recorded and stored in the patient's medical record. Following the local injection of Xylocaine, the right internal jugular vein was punctured under sono graphic guidance with a 20-gauge needle through which a 0.018 inch floppy tip guidewire was advanced into the superior vena cava. The patient tolerated the procedure well. The remainder of the proce dure was performed and dictated under separate cover. COMPARISON: None. FINDINGS: The ultrasound images demonstrate a patent right internal jugular vein. The subsequent images demon strate the needle entering the right internal jugular vein. IMPRESSION: 1. Ultrasound guidance for a needle placement in right internal jugular vein. RPTAT: QQ .Malachi Dorsey MD, Date Time Electronically viewed and signed by .Malachi Dorsey MD, MD on 10/23/2016 12:35 .R/
--- NOTE | 2016-10-23 13:35 | PDOCDIS ---
Discharge Instructions DIAGNOSIS Discharge Diagnosis: Metastatic colon cancer CONDITION Patient Condition: Good HOME CARE INSTRUCTIONS: Diet Instructions: RegularSpecial Diet: 1800 andrew ADA Carb controlled diet; NPO after MN ACTIVITY: Activity Restrictions: No Restrictions FOLLOW UP/APPOINTMENTS Appointments Dr Joy hematology oncology 1 week. wellness consultant 1 week. DANIELE HALLMAN MD, [facility] October 23, 2016 13:35
--- NOTE | 2016-10-23 14:07 | CONS ---
Date/Time of Note Date/Time of Note DATE: 10/23/16 TIME: 14:04 Assessment/Plan Assessment/Plan Chief Complaint/Hosp Course The patient is a 51 year old male previously treated by Dr. Joy (need to verify prior cancer history an treatment course with Dr. Joy) with a history of alcoholic cirrhosis, DM, history of colorectal cancer status post surgery, chemo and radiation per patient's in 2014, now presenting with new metastatic disease to the liver and lung. CT reveals moderate mediastinal, prevascular space and retrosternal lymphadenopathy, numerous bilateral noncalcified pulmonary nodules up to 1.3 cm consistent with metastasis, and extensive inhomogeneous ill-defined low density lesions involving the right left lobes of the liver consistent with malignancy likely metastasis though multi focal hepatic cellular carcinoma cannot be excluded with findings suggestive of cirrhosis. - Requesting records from Dr. Joy's office - Liver/lung lesions concerning for metastatic colorectal cancer with CT A/P multiphase demonstrating 1. Widespread diffuse hepatic metastases. 2. Widespread diffuse pulmonary metastases. 3. Diffuse lymphatic spread of neoplasm to the retroperitoneal, retrocrural, valeri hepatis, epigastric, and pericardiac lymph node stations. #metastatic cancer - status post liver biopsy 10/17/16, prelim shows poorly differentiated metastatic adenocarcinoma, pending IHC and neuroendocrine stains. will follow up final path - pt now afebrile. all cultures are negative. port can be placed in anticipation for chemotherapy - will request KRAS, NRAS, BRAF, MSI testing on path specimen - monitor LFTs status post liver biopsy, AST elevated from 48 to 385 now improved to 122, bili normal at 0.4 - CEA elevated at 38.8 (normal 0-5), CA 19-9 mildly elevated at 46.4, AFP normal at 1.63 - HIV, hep panel neg # Normocytic anemia, slight drop to 8.9, monitor - Iron panel consistent with anemia of chronic inflammation - Vitamin B12 and folate normal, TSH WNL, retic count inappropriately low; LDH elevated at 2209 likely due to metastatic cancer, haptoglobin not suppressed arguing against hemolysis # Fever, monitor per hospitalist, Blood Cx are negative, patient started on Zosyn. Patient continues to be febrile, tachycardic with worsening leukocytosis. -ok with discharge after port placement Will continue to follow Problems: Consultation Date/Type/Reason Admit Date/Time Oct 15, 2016 at 12:31 Initial Consult Date 10/15/16 Type of Consultation: Oncology Reason for Consultation colon ca Referring Provider: DANIELE HALLMAN MD, [facility] 24 HR Interval Summary Free Text/Dictation patient to have port a cath placed today Exam/Review of Systems Vital Signs Vitals Vital Signs Date Time Temp Pulse Resp B/P Pulse Ox O2 Delivery O2 Flow Rate FiO2 10/23/16 08:06 82 10/23/16 07:55 98.1 18 134/81 97 Intake and Output 10/22/16 10/22/16 10/23/16 15:00 23:00 07:00 Intake Total 2325 ml 2050 ml Output Total 800 ml 2500 ml Balance 1525 ml -450 ml Exam Constitutional: alert, oriented Psych: nl mood/affect, no complaints Head: normocephalic Eyes: nl conjunctiva ENMT: nl external ears & nose Neck: supple Respiratory: clear to auscultation, normal air movement Cardiovascular: regular rate and rhythm Gastrointestinal: soft Musculoskeletal: nl extremities to inspection, nl gait and stance Results Result Diagram: 10/23/16 0642 10/23/16 0642 Results 24 hrs Laboratory Tests Test 10/22/16 18:01 10/22/16 21:33 10/23/16 02:10 10/23/16 06:42 Bedside Glucose 244 H 114 131 White Blood Count 8.8 Red Blood Count 2.98 L Hemoglobin 8.6 L Hematocrit 27.0 L Mean Corpuscular Volume 90.6 Mean Corpuscular Hemoglobin 28.9 L Mean Corpuscular Hemoglobin Concent 31.9 L Red Cell Distribution Width 14.6 H Platelet Count 308 Mean Platelet Volume 10.9 H Neutrophils % 78.2 H Lymphocytes % 11.3 L Monocytes % 6.9 Eosinophils % 1.6 Basophils % 0.7 Nucleated Red Blood Cells % 0.0 Neutrophils # 6.9 Lymphocytes # 1.0 Monocytes # 0.6 Eosinophils # 0.1 Basophils # 0.1 Nucleated Red Blood Cells # 0.0 Sodium Level 133 L Potassium Level 4.3 Chloride Level 104 Carbon Dioxide Level 26 Anion Gap 7 L Blood Urea Nitrogen 5 L Creatinine 0.61 Glucose Level 128 Calcium Level 8.1 L Phosphorus Level 1.9 L Magnesium Level 2.0 Test 10/23/16 07:46 10/23/16 13:08 Bedside Glucose 130 148 Medications Medications Current Medications Ondansetron HCl (Zofran Inj) 4 mg Q6H PRN IV NAUSEA AND/OR VOMITING Last administered on 10/17/16 11:23; Admin Dose 4 MG; Start 10/15/16 at 15:30 Acetaminophen (Tylenol Tab) 650 mg Q6H PRN PO PAIN LEVEL 1-3 OR FEVER Last administered on 10/22/16 11:59; Admin Dose 650 MG; Start 10/15/16 at 15:30 Acetaminophen/ Hydrocodone Bitart ([place] (5/325)) 1 tab Q6H PRN PO MODERATE PAIN LEVEL 4-6 Last administered on 10/22/16 18:06; Admin Dose 1 TAB; Start at 15:30 Morphine Sulfate (morphine) 1 mg Q4H PRN IV SEVERE PAIN LEVEL 7-10 Last administered on 10/17/16 15:45; Admin Dose 1 MG; Start 10/15/16 at 15:30 Docusate Sodium (Colace) 100 mg Q12H PRN PO CONSTIPATION Last administered on 05:55; Admin Dose 100 MG; Start 10/15/16 at 15:30 Bisacodyl (Dulcolax) 5 mg DAILY PRN PO CONSTIPATION Last administered on 05:55; Admin Dose 5 MG; Start 10/15/16 at 15:30 Miscellaneous Information 1 ea NOTE XX ; Start 10/15/16 at 15:30 Glucose (Glutose) 15 gm Q15M PRN PO DECREASED GLUCOSE; Start 10/15/16 at 15:30 Glucose (Glutose) 22.5 gm Q15M PRN PO DECREASED GLUCOSE; Start 10/15/16 at 15: 30 Dextrose (D50w Syringe) 25 ml Q15M PRN IV DECREASED GLUCOSE; Start 10/15/16 at 15:30 Dextrose (D50w Syringe) 50 ml Q15M PRN IV DECREASED GLUCOSE; Start 10/15/16 at 15:30 Glucagon (Glucagen) 1 mg Q15M PRN IM DECREASED GLUCOSE; Start 10/15/16 at 15:30 Glucose (Glutose) 15 gm Q15M PRN BUCCAL DECREASED GLUCOSE; Start 10/15/16 at 15 :30 Morphine Sulfate (morphine) 2 mg Q3H PRN IV PAIN LEVEL 7-10 Last administered on 10/23/16 05:15; Admin Dose 2 MG; Start 10/17/16 at 15:30 Famotidine (Pepcid) 20 mg Q12 PO Last administered on 10/23/16 09:06; Admin Dose 20 MG; Start 10/17/16 at 21:00 Diagnostic Test (Pha) (Accu-Chek) 1 ea 02 XX Last administered on 10/23/16 02: 15; Admin Dose 1 EA; Start 10/19/16 at 02:00 Insulin Glargine 20 unit 20 unit DAILY@20 SC Last administered on 10/21/16 21: 04; Admin Dose 20 UNIT; Start 10/19/16 at 20:00 Sodium Chloride (NS) 1,000 ml @ 30 mls/hr Q24H IV ; Start 10/23/16 at 11:00 AMITA MALONE M.D. October 23, 2016 14:07
--- NOTE | 2016-10-23 18:18 | DS ---
DATE OF ADMISSION: 10/15/2016 DATE OF DISCHARGE: 10/23/2016 HOSPITAL COURSE: This is a pleasant 51-year-old gentleman with a history of adenocarcinoma of the b owel, followed by Dr. Joy, his oncologist. He presented with left arm pain and left chest disco mfort. He underwent evaluation by pulmonary, Dr. Landyr, Hematology/Oncology and general surgery. Serial troponins were unremarkable. He was found to have multiple pulmonary nodules on chest CT an d poorly controlled diabetes mellitus. The patient underwent further imaging including CT angiogram which showed no evidence of pulmonary embolism or aneurysm; however, did show multiple enlarged lym ph nodes and multiple nodules in the lung consistent with metastatic disease. Liver ultrasound show ed diffuse hepatic metastasis and liver biopsy was performed on 10/17/2016 which confirmed metastati c poorly differentiated adenocarcinoma of colorectal primary. The patient's course was complicated by fevers and sepsis. He was treated with broad-spectrum antibiotics of Zosyn and Levaquin with imp rovement in fever and leukocytosis. On discharge, his white count was 8.8, hemoglobin 8.6, platelet s of 308. Port-A-Cath was placed on day of discharge 10/23/2016 without complications. The patient was discharged home to follow up with his oncologist, Dr. Jerson Joy and also to follow up with primary care physician. DISCHARGE MEDICATIONS: 1. Levaquin 500 mg p.o. daily. 2. Lantus insulin 20 units subq daily. 3. NovoLog insulin 8 units subcu with meals. DIET: 2 g sodium and diabetic. CONDITION ON DISCHARGE: Stable. Dictated By: DANIELE BARBER/JR Conf#: [id number] DID#: [id number]
== END 2016-10-23 15:46 | disposition home or self-care (01) | DRG 180 ==
LOC: E/R 10:30 → MS4 12:31
PROVIDERS: ADMIT Family Medicine; ATTEND Family Medicine
PROC: 0FB13ZX Excision of Right Lobe Liver, Percutaneous Approach, Diagnostic (ICD-10-PCS; principal; 2016-10-15)
PROC: 0JH60XZ Insertion of Tunneled Vascular Access Device into Chest Subcutaneous Tissue and Fascia, Open Approach (ICD-10-PCS; 2016-10-23)
PROC: 02HV33Z Insertion of Infusion Device into Superior Vena Cava, Percutaneous Approach (ICD-10-PCS; 2016-10-23)
DX: C78.02 Secondary malignant neoplasm of left lung (principal); A41.9 Sepsis, unspecified organism; C78.7 Secondary malignant neoplasm of liver and intrahepatic bile duct; E11.65 Type 2 diabetes mellitus with hyperglycemia; K70.30 Alcoholic cirrhosis of liver without ascites; E87.1 Hypo-osmolality and hyponatremia; C78.01 Secondary malignant neoplasm of right lung; I10 Essential (primary) hypertension; E78.5 Hyperlipidemia, unspecified; F10.20 Alcohol dependence, uncomplicated; D64.9 Anemia, unspecified; Z85.038 Personal history of other malignant neoplasm of large intestine
CPT/HCPCS: 36415; 36561; 70450; 71010; 71275; 74178; 76942; 80048; 80053; 80061; 80076; 82105; 82140; 82150; 82378; 82550; 82553; 82607; 82728; 82746; 82803; 82962; 83010; 83036; 83540; 83615; 83690; 83735; 84100; 84443; 84484; 85025; 85045; 85610; 85730; 86301; 86703; 86704; 86709; 86803; 87040; 87340; 88307; 88313; 93005; 93306; 96372; 96374; 96375; C1788; J0690; J0696; J1200; J1644; J1815; J1956; J2060; J2250; J2270; J2405; J2543; J3010; J7030; J7040; J7042; Q9967

== ENCOUNTER 2016-11-22 18:42 | Inpatient (IN) | payer BC ==
[~2016-11-22] VITALS: Ht 170.2 cm; Wt 73.2 kg
[~2016-11-22 18:42] MED LIST: ENAL5TAB; SIMV10TA6
[2016-11-22] MEDS ORDERED: HYDROmorphONE 1 MG/ML SYG IV STA ×2 (20:38→22:40)
[2016-11-22] MEDS ORDERED: ONDANSETRON 4 MG INJ IV STA ×2 (20:38→22:40)
[2016-11-22] MEDS ORDERED: SOD CHLORIDE 0.9% 1,000 ML IV STA (20:38)
[2016-11-22] MEDS ORDERED: FER325 PO (21:05)
[2016-11-22] MEDS ORDERED: METF500T4 PO (21:05)
[2016-11-22 21:13] LABS: ADD SCAN DIFF NO
[2016-11-22 21:15] LABS: HEMATOCRIT 32.4 % (42.0-52.0); HEMOGLOBIN 10.3 g/dl (14.0-18.0); MEAN CORPUSCULAR HEMOGLOBIN 26.1 pg (29.0-33.0); MEAN CORPUSCULAR HGB CONC 31.8 g/dl (32.0-37.0); MEAN CORPUSCULAR VOLUME 82.2 fl (82.0-101.0); MEAN PLATELET VOLUME 10.6 fl (7.4-10.4); PLATELET COUNT 217 10^3/UL (140-415); RED BLOOD COUNT 3.94 10^6/ul (4.70-6.10); RED CELL DISTRIBUTION WIDTH 16.6 % (11.5-14.5)
[2016-11-22 21:29] LABS: ALBUMIN 3.3 g/dl (3.3-4.9); ALBUMIN/GLOBULIN RATIO 1.06; BILIRUBIN,INDIRECT 0.3 mg/dl (0-1.1); BILIRUBIN,TOTAL 0.3 mg/dl (0.2-1.3); CALCIUM 7.6 mg/dl (8.4-10.2); CREATININE 0.55 mg/dl (0.61-1.24); TOTAL PROTEIN 6.4 g/dl (6.1-8.1)
[2016-11-22] MEDS ORDERED: SOD CHLORIDE 0.9% 100 ML ONE (22:16)
[2016-11-22] MEDS ORDERED: IOHEXOL 300MG/ML 150 ML BTL ONE (22:16)
[2016-11-22 22:59] LABS: LYMPHOCYTES # 0.6 10^3/ul (0.8-2.9); MONOCYTE # 0.2 10^3/ul (0.3-0.9); NEUTROPHIL # 0.5 10^3/ul (1.6-7.5)
--- NOTE | 2016-11-22 23:06 | ERA ---
ER Documentation Chief Complaint Date/Time DATE: 11/22/16 TIME: 23:04 Chief Complaint Pt has colon ca c/o n/v/d, pt currently receiving chemo HPI This a 51-year-old male with a history of colon cancer status post resection is currently undergoing chemotherapy is complaining of nausea vomiting diarrhea for the past 4-5 days. Patient is having nonbilious nonbloody vomit, nonbloody diarrhea. The patient is having uncountable number of diarrhea per the family for the past 4 days. He has about 4-6 vomits a day. He is not eating. He has no fever. He has no chest pain shortness of breath no cough dysuria hematuria. He says he has diffuse abdominal pain is fairly constant and getting worse over the past 4 days. ROS All systems reviewed and are negative except as per history of present illness. Medications Home Meds Reported Medications Ferrous Sulfate* (Ferrous Sulfate*) 325 Mg Tabec, 325 MG PO BID, TAB 11/22/16 Metformin Hcl* (Metformin Hcl*) 500 Mg Tablet, 500 MG PO WITH BREAKFAST, #30 TAB 11/22/16 Discontinued Reported Medications Enalapril Maleate* (Enalapril Maleate*) 5 Mg Tablet, #30 10/16/16 Simvastatin (Simvastatin) 10 Mg Tablet, #30 10/16/16 Allergies Allergies: Coded Allergies: No Known Drug Allergies (Verified Allergy, Unknown, 11/22/16) PMhx/Soc History of Surgery: No Anesthesia Reaction: No Hx Neurological Disorder: No Hx Respiratory Disorders: No Hx Cardiac Disorders: No Hx Psychiatric Problems: No Hx Miscellaneous Medical Probl: Yes (COLON CA) Hx Alcohol Use: No (former casual drinker) Hx Substance Use: No Hx Tobacco Use: No Smoking Status: Former smoker FmHx Family History: No coronary disease Physical Exam Vitals Vital Signs Date Time Temp Pulse Resp B/P Pulse Ox O2 Delivery O2 Flow Rate FiO2 11/22/16 23:30 99.3 108 20 142/69 98 Room Air 11/22/16 23:00 108 20 142/69 99 Room Air 11/22/16 21:00 99.3 108 20 132/79 96 Room Air 11/22/16 18:53 99.3 121 20 120/74 98 Physical Exam Const: Well-developed, well-nourished, ill-appearing Head: Atraumatic, normocephalic Eyes: Normal Conjunctiva, PERRLA, EOMI, normal sclera, no nystagmus ENT: Normal External Ears, Nose and Mouth, moist mucus membranes. Neck: Full range of motion. No meningismus, no lymphadenopathy. Resp: Clear to auscultation bilaterally, no wheezing, rhonchi, rales Cardio: Tachycardia no murmurs, S1 S2 present] Abd: Soft, diffuse mild to moderate tenderness with mild guarding, non distended. Normal bowel sounds, mild guarding no rebound, no pulsitile abdominal masses or bruits Skin: No petechiae or rashes, no ecchymosis , no maculopapular rash Back: No midline or flank tenderness Ext: No cyanosis, or edema, FROM x 4, normal inspection, neurovascularly intact x 4 Neur: Awake and alert, STR 5/5 x 4, sensation intact x 4, no focal findings, cerebellum intact Psych: Normal Mood and Affect Result Diagram: 11/22/16205811/22/162058 Results 24 hrs Laboratory Tests Test 11/22/16 20:59 White Blood Count 2.010^3/ul Red Blood Count 3.9410^6/ul Hemoglobin 10.3g/dl Hematocrit 32.4% Mean Corpuscular Volume 82.2fl Mean Corpuscular Hemoglobin 26.1pg Mean Corpuscular Hemoglobin Concent 31.8g/dl Red Cell Distribution Width 16.6% Platelet Count 56920^3/UL Mean Platelet Volume 10.6fl Neutrophils % 24.0% Band Neutrophils % 37.0% Lymphocytes % 29.0% Monocytes % 10.0% Eosinophils % % Neutrophils # 0.510^3/ul Lymphocytes # 0.610^3/ul Monocytes # 0.210^3/ul Eosinophils # 10^3/ul Sodium Level 128mmol/L Potassium Level 3.0mmol/L Chloride Level 96mmol/L Carbon Dioxide Level 27mmol/L Anion Gap 8 Blood Urea Nitrogen 13mg/dl Creatinine 0.55mg/dl Glucose Level 261mg/dl Calcium Level 7.6mg/dl Total Bilirubin 0.3mg/dl Direct Bilirubin 0.00mg/dl Indirect Bilirubin 0.3mg/dl Aspartate Amino Transf (AST/SGOT) 19IU/L Alanine Aminotransferase (ALT/SGPT) 29IU/L Alkaline Phosphatase 173IU/L Total Protein 6.4g/dl Albumin 3.3g/dl Globulin 3.10g/dl Albumin/Globulin Ratio 1.06 Lipase 31U/L Current Medications Medications (Trade) Dose Ordered Sig/Shira Route PRN Reason Start Time Stop Time Status Last Admin Dose Admin Sodium Chloride (NS) 1,000 ml @ 1,000 mls/hr Q1H STAT IV 11/22/16 20:38 11/22/16 21:37 DC 11/22/16 21:11 Hydromorphone HCl (Dilaudid) 1 mg ONCE STAT IV 11/22/16 20:38 11/22/16 20:39 DC 11/22/16 21:11 Ondansetron HCl (Zofran Inj) 4 mg ONCE STAT IV 11/22/16 20:38 11/22/16 20:39 DC 11/22/16 21:06 IV Flush 10 ml 10 ml STK-MED ONCE .ROUTE 11/22/16 22:16 11/22/16 22:17 DC 11/22/16 22:52 Sodium Chloride (NS) 100 ml @ ud STK-MED ONCE .ROUTE 11/22/16 22:16 11/22/16 22:17 DC 11/22/16 22:52 Iohexol (Omnipaque 300mg/ ml) 150 ml STK-MED ONCE .ROUTE 11/22/16 22:16 11/22/16 22:17 DC 11/22/16 22:52 Hydromorphone HCl (Dilaudid) 1 mg ONCE STAT IV 11/22/16 22:40 11/22/16 22:41 DC 11/22/16 23:07 Ondansetron HCl (Zofran Inj) 4 mg ONCE STAT IV 11/22/16 22:40 11/22/16 22:41 DC 11/22/16 23:07 Procedures/MDM PROCEDURE: CT Abdomen and Pelvis with contrast. CLINICAL INDICATION: Abdominal pain, history of colon cancer. TECHNIQUE: A CT scan of the abdomen and pelvis was performed with intravenous contrast. The patient was scanned following the uncomplicated intravenous administration of 90 cc of Omnipaque-300. Coronal and sagittal reformatted images were obtained from the axial source images. Images were reviewed on a high-resolution PACS workstation. CTDIvol: 11.04 mGy. DLP: 698.17 mGy-cm. One or more of the following dose reduction techniques were used: - Automated exposure control. - Adjustment of the mA and/or kV according to patient size. - Use of iterative reconstruction technique. COMPARISON: 10/16/2016 FINDINGS: There are multiple metastases in both lower lungs, not significantly changed. Mild to moderate atelectatic changes are noted at the right lung base. There are numerous bilateral hepatic metastases, not significantly changed. The gallbladder is normal in appearance. The common bile duct is not dilated. The spleen is not enlarged. No pancreatic lesion is identified and there is no pancreatic ductal dilatation. The adrenal glands are unremarkable. The kidneys are normal in size. There is mild symmetric perinephric fat stranding, probably age-related. No hydronephrosis is seen. The small and large bowel are normal in caliber. The patient status post partial sigmoid colon resection with colocolic anastomosis. The appendix is normal. The urinary bladder is unremarkable. The pelvic organs are within normal limits. There are moderate bilateral fat containing inguinal hernias, left larger than right. Pericardiac, retrocrural, periportal, and retroperitoneal lymphadenopathy is not significantly changed. There is no ascites. No pneumoperitoneum is seen. There are no arterial calcifications. No suspicious osseous lesion is idenitified. IMPRESSION: 1. Multiple hepatic and inferior pulmonary metastases, not significantly changed. 2. Metastatic pericardiac, retrocrural, periportal, and retroperitoneal lymphadenopathy, not significantly changed. 3. Status post partial sigmoid colon resection with colocolic anastomosis. 4. Moderate bilateral fat containing inguinal hernias, left larger than right. RPTAT: HTAR .Leobardo Linares MD, Date Time Electronically viewed and signed by .Leobardo Linares MD, MD on 11/22/2016 23:33 .R/ CC: VERONIQUE BOO DO This CT scan shows no acute process. The patient has a have a low white blood count with anemia platelets are normal He does have a bandemia. Therefore I ordered some urine and blood cultures and urinalysis as well as lactate. The hospitalist Dr. Nino will follow up on this Is given 2 L of normal saline as well as IV potassium He does not meet sepsis criteria, and if his lactate is elevated is not because of sepsis with some other source. His bandemia is probably a stress reaction We will admit to the floor for IV fluids and follow-up Departure Diagnosis: Primary Impression: Bandemia Additional Impressions: Abdominal pain Qualified Code: R10.84 - Generalized abdominal pain Nausea vomiting and diarrhea Condition: Stable VERONIQUE BOO DO Nov 22, 2016 23:06
[2016-11-22 23:30] VITALS: TEMP 99.3
--- NOTE | 2016-11-22 23:34 | RADRPT ---
PROCEDURE: CT Abdomen and Pelvis with contrast. CLINICAL INDICATION: Abdominal pain, history of colon cancer. TECHNIQUE: A CT scan of the abdomen and pelvis was performed with intravenous contrast. The patie nt was scanned following the uncomplicated intravenous administration of 90 cc of Omnipaque-300. Co radha and sagittal reformatted images were obtained from the axial source images. Images were review ed on a high-resolution PACS workstation. CTDIvol: 11.04 mGy. DLP: 698.17 mGy-cm. One or more of the following dose reduction techniques were used: - Automated exposure control. - Adjustment of the mA and/or kV according to patient size. - Use of iterative reconstruction technique. COMPARISON: 10/16/2016 FINDINGS: There are multiple metastases in both lower lungs, not significantly changed. Mild to moderate atel ectatic changes are noted at the right lung base. There are numerous bilateral hepatic metastases, not significantly changed. The gallbladder is dayanara l in appearance. The common bile duct is not dilated. The spleen is not enlarged. No pancreatic lesi on is identified and there is no pancreatic ductal dilatation. The adrenal glands are unremarkable. The kidneys are normal in size. There is mild symmetric perinephric fat stranding, probably age-rela eleazar. No hydronephrosis is seen. The small and large bowel are normal in caliber. The patient status post partial sigmoid colon resec tion with colocolic anastomosis. The appendix is normal. The urinary bladder is unremarkable. The pelvic organs are within normal limits. There are moderate bilateral fat containing inguinal hernias, left larger than right. Pericardiac, retrocrural, periportal, and retroperitoneal lymphadenopathy is not significantly duggan ed. There is no ascites. No pneumoperitoneum is seen. There are no arterial calcifications. No suspicious osseous lesion is idenitified. IMPRESSION: 1. Multiple hepatic and inferior pulmonary metastases, not significantly changed. 2. Metastatic pericardiac, retrocrural, periportal, and retroperitoneal lymphadenopathy, not signif icantly changed. 3. Status post partial sigmoid colon resection with colocolic anastomosis. 4. Moderate bilateral fat containing inguinal hernias, left larger than right. RPTAT: HTAR .Leobardo Linares MD, MD Date Time Electronically viewed and signed by .Leobardo Linares MD, on 11/22/2016 23:33 .R/
[2016-11-22] MEDS ORDERED: SOD CHLORIDE 0.9% 1,000 ML IV SCH (23:40)
[2016-11-23] VITALS (14 sets, daily range): BP systolic 118–134; BP diastolic 59–73; PULSE 83–120; RESP 18–20; Ht 170.2 cm; Wt 73.2 kg
[2016-11-23] MEDS ORDERED: SOD CHLORIDE 0.9% 1,000 ML IV ONE
[2016-11-23] MEDS ORDERED: POTASSIUM CHLORIDE 20 MEQ in SOD CHLORIDE 0.9% 100 ML IVPB ONE ×2
[2016-11-23] MEDS ORDERED: ERTAPENEM SODIUM 1 GM in SOD CHLORIDE 0.9% 100 ML IVPB ONE ×2
--- NOTE | 2016-11-23 00:38 | HP ---
Date/Time of Note Date/Time of Note DATE: 11/23/16 TIME: 00:38 Assessment/Plan VTE Prophylaxis VTE Prophylaxis Intervention: LMWH Assessment/Plan Chief Complaint/Hosp Course This is a 51-year-old male being admitted to the telemetry floor for: #1 Sepsis: While on admission patient did not have a fever he did develop a fever during his hospital evaluation. Patient also was tachycardic and had bandemia of 39%. At the current time patient does have diarrhea. The diarrhea at this time could be infectious in nature versus a side effect of the chemotherapy medications. Patient has also a white blood cell count of 2. At the current time will obtain urine cultures stool studies and blood cultures. We will give the patient IV fluid hydration. And will cover patient with vancomycin and cefepime. Hematology consult. An infectious disease consult. #2 diarrhea: Infectious versus medication side effect. At the current time patient does have a fever will order stool studies and also a C. difficile. Will hold off on giving him any loperamide at this time once infectious etiology is ruled out. We can provide the patient with medication to help slow down his diarrhea. Currently on Vanco and cefepime. #3: Electrolyte abnormality: There is hyponatremia and what likely appears to be contraction alkalosis. This likely could be secondary to patient's gastrointestinal losses. Will provide IV fluid hydration. Continue to monitor electrolytes. #4 metastatic colon cancer: Patient recently received chemotherapy he does not recall the name of the drug that was given. Will provide pain control for any abdominal pain. Will consult hematology for further treatment strategy. #5 history of alcoholic cirrhosis: Patient at the current time does not appear to be decompensated. He is also currently not on any cirrhosis medications. Will continue to follow this. #6 diabetes mellitus: We will put patient on insulin sliding scale: We will hold metformin. #7 anemia: Hemoglobin currently right now is 10, which is actually improved from her previous hemoglobin values from her previous admission. We will continue to monitor this. This likely is in the setting of patient's cancer history. #8 DVT and GI prophylaxis: Lovenox, Protonix. Further treatment strategy will be implemented as per the clinical course. Problems: HPI/ROS Admit Date/Time Admit Date/Time Nov 22, 2016 at 23:41 Hx of Present Illness Chief complaint: Diarrhea This a 51-year-old male with a history of colon cancer status post resection is currently undergoing chemotherapy is complaining of nausea vomiting diarrhea for the past 4-5 days. Patient is having nonbilious nonbloody vomit, nonbloody diarrhea. The patient is having uncountable number of diarrhea per the family for the past 4 days. He has about 4-6 vomits a day. He is not eating. Denies fever he has no chest pain shortness of breath no cough dysuria hematuria. He says he has diffuse abdominal pain is fairly constant and getting worse over the past 4 days. Allergies: NKDA Medications: See MAR ROS Const: As per HPI Eyes : No pain discharge or redness or change in visual acuity ENT: No pain, sore throat, congestion, congestion, dysphagia or discharge Respiratory: No shortness of breath, cough, sputum, wheezing, or pleuritic pain Cardiovascular: No chest pain, palpitation, PND, or edema GI : as per HPI Genitourinary: No dysuria, hematuria, flank pain , discharge or CVA tenderness Musculoskeletal: No joint pain, back pain, neck pain, restricted range of motion in neck or joints Skin: No rash, bruising or hives Neuro: No headache, dizziness, syncope, seizure, focal weakness Endocrine: No polyuria, polydipsia, temperature intolerance Psych: No hallucination, depression, anxiety or suicidal ideation PMH/Family/Social Past Medical History history of alcoholic cirrhosis, DM, history of metastatic colorectal cancer status post surgery and chemo last week Past Surgical History Colon resection, Port-A-Cath placement Family History Significant Family History: no pertinent family hx Social History Patient is a previous heavy drinker but has not drank in approximately 4 month Alcohol Use: heavy Smoking Status: Never smoker Drug Use: none Exam/Review of Systems Vital Signs Vitals Vital Signs Date Time Temp Pulse Resp B/P Pulse Ox O2 Delivery O2 Flow Rate FiO2 11/23/16 00:36 101.7 107 19 129/69 98 11/22/16 23:30 Room Air Exam Additional Comments PROCEDURE: CT Abdomen and Pelvis with contrast. CLINICAL INDICATION: Abdominal pain, history of colon cancer. TECHNIQUE: A CT scan of the abdomen and pelvis was performed with intravenous contrast. The patient was scanned following the uncomplicated intravenous administration of 90 cc of Omnipaque-300. Coronal and sagittal reformatted images were obtained from the axial source images. Images were reviewed on a high-resolution PACS workstation. CTDIvol: 11.04 mGy. DLP: 698.17 mGy-cm. One or more of the following dose reduction techniques were used: - Automated exposure control. - Adjustment of the mA and/or kV according to patient size. - Use of iterative reconstruction technique. COMPARISON: 10/16/2016 FINDINGS: There are multiple metastases in both lower lungs, not significantly changed. Mild to moderate atelectatic changes are noted at the right lung base. There are numerous bilateral hepatic metastases, not significantly changed. The gallbladder is normal in appearance. The common bile duct is not dilated. The spleen is not enlarged. No pancreatic lesion is identified and there is no pancreatic ductal dilatation. The adrenal glands are unremarkable. The kidneys are normal in size. There is mild symmetric perinephric fat stranding, probably age-related. No hydronephrosis is seen. The small and large bowel are normal in caliber. The patient status post partial sigmoid colon resection with colocolic anastomosis. The appendix is normal. The urinary bladder is unremarkable. The pelvic organs are within normal limits. There are moderate bilateral fat containing inguinal hernias, left larger than right. Pericardiac, retrocrural, periportal, and retroperitoneal lymphadenopathy is not significantly changed. There is no ascites. No pneumoperitoneum is seen. There are no arterial calcifications. No suspicious osseous lesion is idenitified. IMPRESSION: 1. Multiple hepatic and inferior pulmonary metastases, not significantly changed. 2. Metastatic pericardiac, retrocrural, periportal, and retroperitoneal lymphadenopathy, not significantly changed. 3. Status post partial sigmoid colon resection with colocolic anastomosis. 4. Moderate bilateral fat containing inguinal hernias, left larger than right. RPTAT: HTAR .Leobardo Linares MD, MD Date Time Electronically viewed and signed by .Leobardo Linares MD, on 11/22/2016 23:33 Labs Result Diagram: 11/22/16205811/22/162058 Medications Medications Current Medications Sodium Chloride 1,000 ml @ 1,000 mls/hr Q1H ONCE IV ; Start 11/23/16 at 00:00; Stop 11/23/16 at 00:59 Potassium Chloride 20 meq/ Sodium Chloride 110 ml @ 55 mls/hr ONCE ONCE IVPB ; Start 11/23/16 at 00:00; Stop 11/23/16 at 01:59 Sodium Chloride (NS) 1,000 ml @ 80 mls/hr [id number] IV ; Start 11/22/16 at 23:40; Stop 11/23/16 at 12:09 [place] Nov 23, 2016 00:38
[2016-11-23] MEDS ORDERED: METOCLOPRAMIDE 10 MG INJ IV PRN (01:00)
[2016-11-23] MEDS ORDERED: ACETAMINOPHEN 325 MG TAB PO PRN ×2 (01:00)
[2016-11-23] MEDS ORDERED: GLUCOSE GEL 15 GRAM TUBE BUCCAL PRN (01:00)
[2016-11-23] MEDS ORDERED: LORAZEPAM 2 MG INJ IV PRN (01:00)
[2016-11-23] MEDS ORDERED: VANCOMYCIN IV PER PHARMACY XX SCH (01:00)
[2016-11-23] MEDS ORDERED: GLUCAGON 1 MG INJ IM PRN (01:00)
[2016-11-23] MEDS ORDERED: NACL 0.9% 3 ML SYG IV SCH (01:00)
[2016-11-23] MEDS ORDERED: DEXTROSE 50% 50 ML SYRINGE IV PRN ×2 (01:00)
[2016-11-23] MEDS ORDERED: GLUCOSE GEL 15 GRAM TUBE PO PRN ×2 (01:00)
[2016-11-23] MEDS ORDERED: ONDANSETRON 4 MG INJ IV PRN ×2 (01:00)
[2016-11-23] MEDS: morphine 2 MG INJ IV PRN ×2 (01:16→05:00)
[2016-11-23] MEDS: SOD CHLORIDE 0.9% 1,000 ML IV SCH ×2 (01:17→14:52)
[2016-11-23] MEDS: CEFEPIME 2GM/50 ML (PMX) 50 ML IVPB SCH ×3 (01:53→21:00)
[2016-11-23] MEDS: INSULIN ASPART [NOVOLOG] 3 ML PEN SC SCH ×6 (01:59→20:57)
[2016-11-23] MEDS ORDERED: VANCOMYCIN 1.5 GM in SOD CHLORIDE 0.9% 250 ML IVPB ONE (02:00)
[2016-11-23] MEDS ORDERED: HYDROmorphONE 1 MG/ML SYG IV PRN (02:30)
[2016-11-23] MEDS: HYDROmorphONE 1 MG/ML SYG IV PRN ×3 (06:13→22:02)
[2016-11-23] MEDS: PANTOPRAZOLE 40 MG INJ IV SCH (06:13)
[2016-11-23 06:54] LABS: ADD SCAN DIFF NO
[2016-11-23 07:00] LABS: ABNORMAL IP MESSAGE 1; HEMATOCRIT 32.7 % (42.0-52.0); HEMOGLOBIN 10.3 g/dl (14.0-18.0); MEAN CORPUSCULAR HEMOGLOBIN 26.3 pg (29.0-33.0); MEAN CORPUSCULAR HGB CONC 31.5 g/dl (32.0-37.0); MEAN CORPUSCULAR VOLUME 83.6 fl (82.0-101.0); MEAN PLATELET VOLUME 10.5 fl (7.4-10.4); PLATELET COUNT 192 10^3/UL (140-415); RED BLOOD COUNT 3.91 10^6/ul (4.70-6.10); RED CELL DISTRIBUTION WIDTH 17.2 % (11.5-14.5); WHITE BLOOD COUNT 2.2 10^3/ul (4.8-10.8)
[2016-11-23 07:30] LABS: ALBUMIN 2.9 g/dl (3.3-4.9); ALBUMIN/GLOBULIN RATIO 0.96; BILIRUBIN,INDIRECT 0.2 mg/dl (0-1.1); BILIRUBIN,TOTAL 0.2 mg/dl (0.2-1.3); CALCIUM 7.5 mg/dl (8.4-10.2); CHOL/HDL RATIO 6.3 RATIO; CREATININE 0.66 mg/dl (0.61-1.24); MAGNESIUM 1.6 mg/dl (1.7-2.5); POTASSIUM 3.4 mmol/L (3.5-5.1); TOTAL PROTEIN 5.9 g/dl (6.1-8.1)
[2016-11-23 07:56] LABS: THYROID STIMULATING HORMONE 1.56 MIU/L (0.465-4.680)
[2016-11-23 08:57] LABS: URINE BILIRUBIN (Dip) NEGATIVE (NEGATIVE); URINE BLOOD (Dip) NEGATIVE (NEGATIVE); URINE COLOR YELLOW (YELLOW); URINE KETONES (Dip) NEGATIVE (NEGATIVE); URINE LEUKOCYTE ESTERASE (Dip) NEGATIVE (NEGATIVE); URINE NITRITE (Dip) NEGATIVE (NEGATIVE); URINE UROBILINOGEN (Dip) 0.2 E.U./dL (0.1-1.0)
[2016-11-23 08:59] LABS: ADD UMIC NO; URINE TOTAL PROTEIN (Dip) NEGATIVE (NEGATIVE)
[2016-11-23] MEDS: ENOXAPARIN 40 MG/0.4 ML SYG SC SCH (08:59)
[2016-11-23] MEDS ORDERED: VANCOMYCIN 1 GM in NS 250 ML IVPB SCH (10:00)
[2016-11-23 10:32] LABS: LYMPHOCYTES # 0.6 10^3/ul (0.8-2.9); MONOCYTE # 0.1 10^3/ul (0.3-0.9); NEUTROPHIL # 0.8 10^3/ul (1.6-7.5)
[2016-11-23] MEDS ORDERED: MAGNESIUM SULFATE 2 GM/50 ML 50 ML IVPB ONE (11:30)
[2016-11-23] MEDS ORDERED: POTASSIUM CHLORIDE 250 ML IVPB ONE (11:30)
[2016-11-23] MEDS: VANCOMYCIN 1 GM in NS 250 ML IVPB SCH ×2 (11:46→19:44)
--- NOTE | 2016-11-23 13:37 | CONS ---
DATE OF ADMISSION: 11/22/2016 DATE OF CONSULTATION: 11/23/2016 TYPE OF CONSULTATION: Infectious disease. REASON FOR CONSULTATION: Antibiotic management. HISTORY OF PRESENT ILLNESS: Eugenio Desai is a 51-year-old male with a history of colon ca ncer and numerous other problems who is complaining of nausea, vomiting and diarrhea for the past 4 to 5 days. His past problems include: 1. History of colon cancer, status post resection. 2. Metastatic colon cancer. 3. Alcoholic cirrhosis. 4. Diabetes mellitus. 5. Anemia. 6. Status post Port-A-Cath placement. Acutely, the patient comes in now with nausea and vomiting. He was started on vancomycin and cefepi me. His white blood cell count is 2000, H and H 10.3 and 32.4, platelet count 217,000. BUN and cre atinine 13/0.55. Random glucose of 261. A CT scan of the abdomen and pelvis shows multiple hepatic and inferior pulmonary metastases, not significantly changed, metastatic pericardiac, retrocrural, periportal and retroperitoneal lymphadenopathy, status post partial sigmoid colon resection, with c olocolonic anastomosis and bilateral fat-containing inguinal hernias, left larger than right. As no eleazar, BUN and creatinine were 13/0.55. PAST MEDICAL HISTORY: Operations as outlined. FAMILY HISTORY: Noncontributory. SOCIAL HISTORY: He is a heavy drinker. He does not smoke or abuse drugs. ALLERGIES: NONE TO PENICILLIN, SULFA OR FOODS. MEDICATIONS: Per chart. REVIEW OF SYSTEMS: As per HPI. PHYSICAL EXAMINATION: GENERAL: The patient is a chronically ill-appearing male. VITAL SIGNS: Stable. He is afebrile. SKIN: Without generalized rash. HEENT: Within normal limits. NECK: Supple. LYMPH NODES: None palpable. CHEST: Decreased breath sounds at the bases. HEART: Without murmur or gallop. ABDOMEN: Soft, nontender, without organosplenomegaly or masses. He has diffuse mild tenderness, wi th mild guarding. Nondistended. No rebound tenderness. EXTREMITIES: Without cyanosis, clubbing, or edema. RECTAL AND GENITAL EXAM: Deferred. NEUROLOGIC: No focal neurological abnormalities. White count today is 2.2. The patient on vancomycin and cefepime. Will continue him on this regime n. IMPRESSION AND PLAN: The patient will need workup for the diarrhea. Fecal leukocytes and cultures were sent, as well as ova and parasites and urine cultures. Dictated By: GOMEZ BECKWITH MD, JD/JR Conf#: [id number] DID#: [id number]
--- NOTE | 2016-11-23 16:25 | CONS ---
Date/Time of Note Date/Time of Note DATE: 11/23/16 TIME: 16:25 Assessment/Plan Assessment/Plan Chief Complaint/Hosp Course The patient is a 51 year old male previously treated by Dr. Joy with a history of alcoholic cirrhosis, DM, history of colorectal cancer status post surgery, chemo and radiation per patient's in 2015, who presented during the last admission with new metastatic disease to the liver and lung. CT revealed moderate mediastinal, prevascular space and retrosternal lymphadenopathy, numerous bilateral noncalcified pulmonary nodules up to 1.3 cm consistent with metastasis, and extensive inhomogeneous ill-defined low density lesions involving the right left lobes of the liver consistent with malignancy likely metastasis though multi focal hepatic cellular carcinoma cannot be excluded with findings suggestive of cirrhosis. # Neutropenic fever, secondary to chemotherapy (FOLFIRI) on 11/16/16 - Continue vanc and cefepime, appreciate ID recs, f/u cultures - C. diff neg, f/u other stool studies. If negative, ok to give imodium as diarrhea is frequently seen with irinotecan chemotherapy - continue neupogen 480 mcg daily until ANC > 1000 for at least 2 days # Metastatic colon cancer - status post liver biopsy 10/17/16, demonstrated metastatic poorly- differentiated adenocarcinoma with morphological and immunophenotypic features compatible with a colorectal primary. - KRAS, NRAS, BRAF, MSI testing on path specimen requested, will follow-up results - Patient received cycle 1 of FOLFIRI/Avastin on 11/16/16 - Monitor abdominal pain, mild, Avastin can occasionally be associated with perforation however mild abdominal pain and CT did not reveal free air - CT A/P 11/22/16 demonstrated 1. Multiple hepatic and inferior pulmonary metastases, not significantly changed. 2. Metastatic pericardiac, retrocrural, periportal, and retroperitoneal lymphadenopathy, not significantly changed. 3. Status post partial sigmoid colon resection with colocolic anastomosis. 4. Moderate bilateral fat containing inguinal hernias, left larger than right. - Once discharged, plan to continue FOLFIRI/Avastin per Dr. Joy every 2 weeks # Normocytic anemia, currently at 10.3, monitor - Iron panel previously consistent with anemia of chronic inflammation - Vitamin B12 and folate normal, TSH WNL, retic count inappropriately low; LDH elevated at 2209 likely due to metastatic cancer, haptoglobin not suppressed arguing against hemolysis Problems: Consultation Date/Type/Reason Admit Date/Time Nov 22, 2016 at 23:41 Date of Consultation: Nov 23, 2016 Type of Consultation: Hematology/Oncology Reason for Consultation Metastatic colon cancer, neutropenic fever Hx of Present Illness The patient is a 51 year old male previously treated by Dr. Joy with a history of colorectal cancer status post surgery, chemo and radiation per patient's in 2014, now presenting with new metastatic disease to the liver and lung. CT revealead moderate mediastinal, prevascular space and retrosternal lymphadenopathy, numerous bilateral noncalcified pulmonary nodules up to 1.3 cm consistent with metastasis, and extensive inhomogeneous ill- defined low density lesions involving the right left lobes of the liver consistent with malignancy likely metastasis though multi focal hepatic cellular carcinoma cannot be excluded with findings suggestive of cirrhosis. During the last hospitalization, the patient underwent liver biopsy and a port was placed. The patient was seen by Dr. Joy as an outpatient and started on FOLFIRI (5FU, leucovorin, irinotecan) plus Avastin cycle 1 on 11/16/16. He states that he has had 4 days of abdominal pain, 3 days of diarrhea, and fever upon admission after receiving chemotherapy 1 week ago. Past Medical History Alcoholic cirrhosis Hypertension Diabetes Family History Significant Family History: no pertinent family hx Social History Alcohol Use: heavy Smoking Status: Never smoker Social History Alcohol Use: heavy Smoking Status: Never smoker Drug Use: none Exam/Review of Systems Vital Signs Vitals Vital Signs Date Time Temp Pulse Resp B/P Pulse Ox O2 Delivery O2 Flow Rate FiO2 11/23/16 16:12 98.2 86 20 125/65 98 11/22/16 23:30 Room Air Intake and Output 11/22/16 11/22/16 11/23/16 14:59 22:59 06:59 Output Total 200 ml Balance -200 ml Exam Constitutional: alert, oriented Head: normocephalic Eyes: nl conjunctiva Neck: supple Respiratory: clear to auscultation Cardiovascular: regular rate and rhythm Gastrointestinal: soft, tender (bilateral lower quadrant pain, mild, no rebound or guarding) Musculoskeletal: nl extremities to inspection Neurological: [employer] PEDIATRICIAN II-XII intact Results Result Diagram: 11/23/16 0610 11/23/16 0610 Results 24 hrs Laboratory Tests Test 11/22/16 20:59 11/22/16 23:33 11/23/16 00:55 11/23/16 01:28 White Blood Count 2.0 #L Red Blood Count 3.94 #L Hemoglobin 10.3 L Hematocrit 32.4 L Mean Corpuscular Volume 82.2 Mean Corpuscular Hemoglobin 26.1 L Mean Corpuscular Hemoglobin Concent 31.8 L Red Cell Distribution Width 16.6 H Platelet Count 217 # Mean Platelet Volume 10.6 H Neutrophils % 24.0 L Band Neutrophils % 37.0 H Lymphocytes % 29.0 Monocytes % 10.0 Eosinophils % Neutrophils # 0.5 L Lymphocytes # 0.6 L Monocytes # 0.2 L Eosinophils # Sodium Level 128 L Potassium Level 3.0 L Chloride Level 96 L Carbon Dioxide Level 27 Anion Gap 8 Blood Urea Nitrogen 13 Creatinine 0.55 L Glucose Level 261 H Calcium Level 7.6 L Total Bilirubin 0.3 Direct Bilirubin 0.00 Indirect Bilirubin 0.3 Aspartate Amino Transf (AST/SGOT) 19 Alanine Aminotransferase (ALT/SGPT) 29 Alkaline Phosphatase 173 H Total Protein 6.4 Albumin 3.3 Globulin 3.10 Albumin/Globulin Ratio 1.06 Lipase 31 Lactic Acid Level 1.8 Urine Color YELLOW Urine Clarity CLEAR Urine pH 6.5 Urine Specific [place] <=1.005 L Urine Ketones NEGATIVE Urine Nitrite NEGATIVE Urine Bilirubin NEGATIVE Urine Urobilinogen 0.2 E.U./dL Urine Leukocyte Esterase NEGATIVE Urine Hemoglobin NEGATIVE Urine Glucose 0.1% H Urine Total Protein NEGATIVE Bedside Glucose 192 Test 11/23/16 05:32 11/23/16 06:10 11/23/16 08:56 11/23/16 12:12 Bedside Glucose 220 206 171 White Blood Count 2.2 L Red Blood Count 3.91 L Hemoglobin 10.3 L Hematocrit 32.7 L Mean Corpuscular Volume 83.6 Mean Corpuscular Hemoglobin 26.3 L Mean Corpuscular Hemoglobin Concent 31.5 L Red Cell Distribution Width 17.2 H Platelet Count 192 Mean Platelet Volume 10.5 H Neutrophils % 38.0 L Band Neutrophils % 29.0 H Lymphocytes % 27.0 Monocytes % 5.0 Eosinophils % 1.0 Neutrophils # 0.8 L Lymphocytes # 0.6 L Monocytes # 0.1 L Eosinophils # 0.0 Sodium Level 133 L Potassium Level 3.4 L Chloride Level 98 Carbon Dioxide Level 25 Anion Gap 13 Blood Urea Nitrogen 10 Creatinine 0.66 Glucose Level 188 Hemoglobin A1c 9.7 H Calcium Level 7.5 L Magnesium Level 1.6 L Total Bilirubin 0.2 Direct Bilirubin 0.00 Indirect Bilirubin 0.2 Aspartate Amino Transf (AST/SGOT) 19 Alanine Aminotransferase (ALT/SGPT) 24 Alkaline Phosphatase 142 H Total Protein 5.9 L Albumin 2.9 L Globulin 3.00 Albumin/Globulin Ratio 0.96 Triglycerides Level 118 Cholesterol Level 126 LDL Cholesterol, Calculated 82 HDL Cholesterol 20 L Cholesterol/HDL Ratio 6.3 Thyroid Stimulating Hormone (TSH) 1.560 Medications Medications Current Medications Sodium Chloride (NS) 1,000 ml @ 70 mls/hr [id number] IV Last administered on 01:17; Admin Dose 70 MLS/HR; Start 11/23/16 at 00:39 Lorazepam (Ativan) 0.5 mg Q6H PRN IV ANXIETY; Start 11/23/16 at 01:00 Ondansetron HCl (Zofran Inj) 4 mg Q6H PRN IV NAUSEA AND/OR VOMITING; Start 11/23 at 01:00 Metoclopramide HCl (Reglan) 10 mg Q6H PRN IV NAUSEA AND/OR VOMITING Last administered on 11/23/16 01:29; Admin Dose 10 MG; Start 11/23/16 at 01:00 Acetaminophen (Tylenol Tab) 650 mg Q6H PRN PO PAIN LEVEL 1-3 OR FEVER Last administered on 11/23/16 01:30; Admin Dose 650 MG; Start 11/23/16 at 01:00 Pantoprazole (Protonix Iv) 40 mg DAILY@06 IV Last administered on 11/23/16 06: 13; Admin Dose 40 MG; Start 11/23/16 at 06:00 Enoxaparin Sodium (Lovenox) 40 mg DAILY SC Last administered on 11/23/16 08:59 ; Admin Dose 40 MG; Start 11/23/16 at 09:00 Insulin Aspart (Novolog Insulin Pen) NOVOLOG *MILD* ALGORI... Q4 SC Last administered on 11/23/16 12:24; Admin Dose 1 UNIT; Start 11/23/16 at 01:00 Miscellaneous Information 1 ea NOTE XX ; Start 11/23/16 at 01:00 Glucose (Glutose) 15 gm Q15M PRN PO DECREASED GLUCOSE; Start 11/23/16 at 01:00 Glucose (Glutose) 22.5 gm Q15M PRN PO DECREASED GLUCOSE; Start 11/23/16 at 01:00 Dextrose (D50w Syringe) 25 ml Q15M PRN IV DECREASED GLUCOSE; Start 11/23/16 at 01:00 Dextrose (D50w Syringe) 50 ml Q15M PRN IV DECREASED GLUCOSE; Start 11/23/16 at 01:00 Glucagon (Glucagen) 1 mg Q15M PRN IM DECREASED GLUCOSE; Start 11/23/16 at 01:00 Glucose 15 gm 15 gm Q15M PRN BUCCAL DECREASED GLUCOSE; Start 11/23/16 at 01:00 Cefepime HCl (Maxipime 2gm/50 ml (Pmx)) 50 ml @ 100 mls/hr Q12 IVPB Last administered on 11/23/16 08:57; Admin Dose 100 MLS/HR; Start 11/23/16 at 01:00 Hydromorphone HCl 1 mg 1 mg Q4H PRN IV PAIN Last administered on 11/23/16 06:13 ; Admin Dose 1 MG; Start 11/23/16 at 06:30 Vancomycin HCl (Vancocin) 250 ml @ 125 mls/hr Q8H IVPB Last administered on 11:46; Admin Dose 125 MLS/HR; Start 11/23/16 at 11:30 Miscellaneous Information (*Rx Drug Level Order Reminder*) 1 ONCE ONCE XX ; Start 11/24/16 at 02:30; Stop 11/24/16 at 02:31 Filgrastim (Neupogen) 480 mcg DAILY@17 SC ; Start 11/23/16 at 17:00 ANA PAULA DE ANDA MD Nov 23, 2016 16:25
[2016-11-23] MEDS: FILGRASTIM 480 MCG INJ SC SCH (17:53)
[2016-11-24] VITALS (12 sets, daily range): BP systolic 107–129; BP diastolic 53–73; PULSE 77–86; RESP 18–19
[2016-11-24] MEDS: INSULIN ASPART [NOVOLOG] 3 ML PEN SC SCH ×6 (01:00→21:00)
[2016-11-24] MEDS: VANCOMYCIN 1 GM in NS 250 ML IVPB SCH ×3 (03:57→21:07)
[2016-11-24] MEDS: SOD CHLORIDE 0.9% 1,000 ML IV SCH ×3 (05:15→21:10)
[2016-11-24] MEDS: PANTOPRAZOLE 40 MG INJ IV SCH (05:52)
[2016-11-24 06:55] LABS: ADD SCAN DIFF NO
[2016-11-24 07:02] LABS: ABNORMAL IP MESSAGE 1; HEMATOCRIT 25.8 % (42.0-52.0); HEMOGLOBIN 8.1 g/dl (14.0-18.0); MEAN CORPUSCULAR HEMOGLOBIN 26.3 pg (29.0-33.0); MEAN CORPUSCULAR HGB CONC 31.4 g/dl (32.0-37.0); MEAN CORPUSCULAR VOLUME 83.8 fl (82.0-101.0); MEAN PLATELET VOLUME 11.1 fl (7.4-10.4); PLATELET COUNT 169 10^3/UL (140-415); RED BLOOD COUNT 3.08 10^6/ul (4.70-6.10); RED CELL DISTRIBUTION WIDTH 17.1 % (11.5-14.5); WHITE BLOOD COUNT 4.2 10^3/ul (4.8-10.8)
[2016-11-24 07:12] LABS: ALBUMIN 2.4 g/dl (3.3-4.9); BILIRUBIN,INDIRECT 0.2 mg/dl (0-1.1); BILIRUBIN,TOTAL 0.2 mg/dl (0.2-1.3); CALCIUM 7.3 mg/dl (8.4-10.2); CREATININE 0.54 mg/dl (0.61-1.24); MAGNESIUM 1.9 mg/dl (1.7-2.5)
[2016-11-24 07:18] LABS: POTASSIUM 2.7 mmol/L (3.5-5.1)
[2016-11-24 08:29] LABS: THYROID STIMULATING HORMONE 2.88 MIU/L (0.465-4.680)
[2016-11-24] MEDS: CEFEPIME 2GM/50 ML (PMX) 50 ML IVPB SCH ×2 (08:50→23:06)
[2016-11-24] MEDS: ENOXAPARIN 40 MG/0.4 ML SYG SC SCH (09:01)
[2016-11-24 09:51] LABS: EOSINOPHILS # 0.1 10^3/ul (0.0-0.5); LYMPHOCYTES # 0.8 10^3/ul (0.8-2.9); MONOCYTE # 0.3 10^3/ul (0.3-0.9); NEUTROPHIL # 1.9 10^3/ul (1.6-7.5)
[2016-11-24 09:52] LABS: BURR CELLS FEW; POIKILOCYTOSIS 1+
[2016-11-24 09:53] LABS: POLYCHROMASIA 1+
--- NOTE | 2016-11-24 11:43 | PN ---
Date/Time of Note Date/Time of Note DATE: 11/24/16 TIME: 11:42 Assessment/Plan VTE Prophylaxis VTE Prophylaxis Intervention: LMWH VTE Contraindication Reason: thrombocytopenia Lines/Catheters IV [facility] Portacath Urinary Cath still in place: No Assessment/Plan Assessment/Plan The patient is a 51 year old male with a history of alcoholic cirrhosis, DM, and metastatic colon cancer who presents with fever and profuse diarrhea. Patient is being managed as follows: 1. Severe sepsis likely secondary to #2 * Oncology feels patient may have a systemic inflammatory response syndrome with neutropenic fever with diarrhea being incidental finding and as a side effect of chemo * However no other source of infection has been found 2. Severe profuse diarrhea with patient reporting almost 6 bowel movements daily r/o Infectious cause: improved 3. Metastatic colon adenocarcinoma with lymphatic pulmonary and liver metastases confirmed on biopsy October 17, 2016 * Patient received first cycle of chemo November 16, 2016 4. History of heavy alcohol use with alcoholic cirrhosis 5. Hypochromic Anemia likely secondary to chronic disease and cancer 6. Leukopenia which could be secondary to recent chemotherapy 7. Status post partial sigmoid colon resection with colocolic anastomosis secondary to #3 8. Diabetes type 2 with A1c 9.7 9. Hypokalemia PLAN: * Continue IV fluids and electrolyte replenishment * Continue broad-spectrum antibiotics for now. All cultures remain negative including stool studies * Advance diet to an 1800-calorie diet /resume home metformin, but increase to twice daily in view of high A1c /sliding scale insulin * Patient on Neupogen per oncology / discontinue neutropenic precautions * Advance diet as tolerated * Once discharged, plan to continue FOLFIRI/Avastin per Dr. Joy every 2 weeks * Further interventions per clinical course Prophylaxis: Lovenox/PPI Subjective 24 Hr Interval Summary Constitutional: improved Respiratory: No cough, No shortness of breath Cardiovascular: No chest pain Gastrointestinal: diarrhea (Only one episode so far today), No pain Exam/Review of Systems Vital Signs Vitals Vital Signs Date Time Temp Pulse Resp B/P Pulse Ox O2 Delivery O2 Flow Rate FiO2 11/24/16 11:10 98.2 85 19 118/66 98 11/22/16 23:30 Room Air Intake and Output 11/23/16 11/23/16 11/24/16 15:00 23:00 07:00 Intake Total 2100 ml 800 ml Balance 2100 ml 800 ml Exam Constitutional: alert, oriented Head: normocephalic Eyes: nl conjunctiva Neck: supple Respiratory: clear to auscultation Cardiovascular: regular rate and rhythm Gastrointestinal: soft, tender (bilateral lower quadrant pain, mild, no rebound or guarding) Musculoskeletal: nl extremities to inspection Neurological: [employer]ING T[employer]ER II-XII intact Results Result Diagram: 11/24/16 0546 11/24/16 0500 Results 24 hrs Laboratory Tests Test 11/23/16 12:12 11/23/16 16:53 11/23/16 20:45 11/24/16 01:19 Bedside Glucose 171 120 106 110 Test 11/24/16 02:31 11/24/16 05:00 11/24/16 05:17 11/24/16 05:46 Vancomycin Level Trough 15.0 Sodium Level 130 L Potassium Level 2.7 *L Chloride Level 104 Carbon Dioxide Level 21 Anion Gap 8 Blood Urea Nitrogen 6 L Creatinine 0.54 L Glucose Level 98 # Calcium Level 7.3 L Magnesium Level 1.9 Total Bilirubin 0.2 Direct Bilirubin 0.00 Indirect Bilirubin 0.2 Aspartate Amino Transf (AST/SGOT) 20 Alanine Aminotransferase (ALT/SGPT) 26 Alkaline Phosphatase 108 Total Protein 5.0 L Albumin 2.4 L Thyroid Stimulating Hormone (TSH) 2.880 Bedside Glucose 113 White Blood Count 4.2 #L Red Blood Count 3.08 #L Hemoglobin 8.1 #L Hematocrit 25.8 #L Mean Corpuscular Volume 83.8 Mean Corpuscular Hemoglobin 26.3 L Mean Corpuscular Hemoglobin Concent 31.4 L Red Cell Distribution Width 17.1 H Platelet Count 169 Mean Platelet Volume 11.1 H Neutrophils % 45.0 Band Neutrophils % 26.0 H Lymphocytes % 19.0 Monocytes % 7.0 Eosinophils % 2.0 Basophils % 1.0 Nucleated Red Blood Cells % Neutrophils # 1.9 Lymphocytes # 0.8 Monocytes # 0.3 Eosinophils # 0.1 Basophils # 0.0 Nucleated Red Blood Cells # Dohle Bodies OCCASIONAL Polychromasia 1+ Hypochromasia Poikilocytosis 1+ Test 11/24/16 08:48 Bedside Glucose 112 Medications Medications Current Medications Sodium Chloride (NS) 1,000 ml @ 70 mls/hr [id number] IV Last administered on t 01:17; Admin Dose 70 MLS/HR; Start 11/23/16 at 00:39 Lorazepam (Ativan) 0.5 mg Q6H PRN IV ANXIETY; Start 11/23/16 at 01:00 Ondansetron HCl (Zofran Inj) 4 mg Q6H PRN IV NAUSEA AND/OR VOMITING; Start 11/23 at 01:00 Metoclopramide HCl (Reglan) 10 mg Q6H PRN IV NAUSEA AND/OR VOMITING Last administered on 11/23/16 01:29; Admin Dose 10 MG; Start 11/23/16 at 01:00 Acetaminophen (Tylenol Tab) 650 mg Q6H PRN PO PAIN LEVEL 1-3 OR FEVER Last administered on 11/23/16 01:30; Admin Dose 650 MG; Start 11/23/16 at 01:00 Pantoprazole (Protonix Iv) 40 mg DAILY@06 IV Last administered on 11/24/16 05: 52; Admin Dose 40 MG; Start 11/23/16 at 06:00 Enoxaparin Sodium (Lovenox) 40 mg DAILY SC Last administered on 11/24/16 09:01 ; Admin Dose 40 MG; Start 11/23/16 at 09:00 Miscellaneous Information 1 ea NOTE XX ; Start 11/23/16 at 01:00 Glucose (Glutose) 15 gm Q15M PRN PO DECREASED GLUCOSE; Start 11/23/16 at 01:00 Glucose (Glutose) 22.5 gm Q15M PRN PO DECREASED GLUCOSE; Start 11/23/16 at 01:00 Dextrose (D50w Syringe) 25 ml Q15M PRN IV DECREASED GLUCOSE; Start 11/23/16 at 01:00 Dextrose (D50w Syringe) 50 ml Q15M PRN IV DECREASED GLUCOSE; Start 11/23/16 at 01:00 Glucagon (Glucagen) 1 mg Q15M PRN IM DECREASED GLUCOSE; Start 11/23/16 at 01:00 Glucose 15 gm 15 gm Q15M PRN BUCCAL DECREASED GLUCOSE; Start 11/23/16 at 01:00 Cefepime HCl (Maxipime 2gm/50 ml (Pmx)) 50 ml @ 100 mls/hr Q12 IVPB Last administered on 11/24/16 08:50; Admin Dose 100 MLS/HR; Start 11/23/16 at 01:00 Hydromorphone HCl 1 mg 1 mg Q4H PRN IV PAIN Last administered on 11/23/16 22:02 ; Admin Dose 1 MG; Start 11/23/16 at 06:30 Vancomycin HCl (Vancocin) 250 ml @ 125 mls/hr Q8H IVPB Last administered on 03:57; Admin Dose 125 MLS/HR; Start 11/23/16 at 11:30 Filgrastim (Neupogen) 480 mcg DAILY@17 SC Last administered on 11/23/16 17:53; Admin Dose 480 MCG; Start 11/23/16 at 17:00 LATONYA YOON Nov 24, 2016 11:42
[2016-11-24] MEDS: POTASSIUM CHLORIDE 250 ML IVPB SCH ×2 (12:23→18:50)
[2016-11-24] MEDS: metFORMIN 500 MG TAB PO SCH (12:43)
[2016-11-24] MEDS ORDERED: MAGNESIUM SULFATE 1 GM/D5W 100 ML IVPB ONE (13:00)
--- NOTE | 2016-11-24 15:15 | PN ---
DATE: 11/24/2016 INFECTIOUS DISEASE PROGRESS NOTE SUBJECTIVE: No events. No fevers. The patient is awake, looks comfortable. Diarrhea resolved. W BC today 4.2, platelets 169, neutrophils 45, bands 26, BUN 6, creatinine 0.54. MICROBIOLOGY: Blood culture and urine culture had been negative. Stool for C. diff came back negat hima. Stool for ova and parasites are pending. CT of the abdomen and pelvis on admission revealed multiple hepatic and pulmonary metastases. ANTIMICROBIALS: The patient was started on vancomycin and Cefepime. PHYSICAL EXAMINATION: GENERAL: This is a well-developed, middle-aged man, who is awake, in no distress. HEENT: Head atraumatic, normocephalic. Sclerae anicteric. Buccal mucosa dry. NECK: Supple, trachea midline. CHEST: Chest rise is symmetrical. Breath sounds diminished to the bases. HEART: S1, S2. ABDOMEN: Soft. Bowel tones present. EXTREMITIES: Without cyanosis. ASSESSMENT: 1. Fevers with nausea, vomiting, diarrhea and bandemia. Diarrhea resolving. So far stool for Clos tridium difficile negative. Blood and urine cultures have been negative. 2. Metastatic colon cancer. 3. Diabetes. 4. History of Port-A-Cath. 5. Anemia. 6. Alcoholic cirrhosis. PLAN: The patient remains stable, afebrile. So far no evidence of active infectious process. Bloo d cultures had been negative, although it is unclear if it has been done from his Port-A-Cath. We ar e going to continue him on the current antibiotics, order chest x-ray, monitor him overnight and if cultures have been negative we might discontinue antibiotics and observe him. Dictated By: MERLE RODRIGUEZ [employer] RO[employer] HAND for GOMEZ WARD/NTS Conf#: [id number] DID#: [id number]
[2016-11-24] MEDS: FILGRASTIM 480 MCG INJ SC SCH (17:50)
[2016-11-25] VITALS (13 sets, daily range): BP systolic 103–125; BP diastolic 53–70; PULSE 77–90; RESP 18–20
[2016-11-25] MEDS: VANCOMYCIN 1 GM in NS 250 ML IVPB SCH ×2 (03:45→12:32)
[2016-11-25] MEDS: PANTOPRAZOLE 40 MG INJ IV SCH (05:27)
[2016-11-25 07:10] LABS: ADD SCAN DIFF NO
[2016-11-25 07:19] LABS: ABNORMAL IP MESSAGE 1; HEMATOCRIT 27.7 % (42.0-52.0); HEMOGLOBIN 8.8 g/dl (14.0-18.0); MEAN CORPUSCULAR HEMOGLOBIN 26.7 pg (29.0-33.0); MEAN CORPUSCULAR HGB CONC 31.8 g/dl (32.0-37.0); MEAN CORPUSCULAR VOLUME 84.2 fl (82.0-101.0); MEAN PLATELET VOLUME 10.7 fl (7.4-10.4); PLATELET COUNT 200 10^3/UL (140-415); RED BLOOD COUNT 3.29 10^6/ul (4.70-6.10); RED CELL DISTRIBUTION WIDTH 17.1 % (11.5-14.5)
[2016-11-25] MEDS: INSULIN ASPART [NOVOLOG] 3 ML PEN SC SCH ×4 (07:25→21:00)
[2016-11-25 07:30] LABS: CALCIUM 7.5 mg/dl (8.4-10.2); CREATININE 0.57 mg/dl (0.61-1.24)
[2016-11-25 08:12] LABS: LYMPHOCYTES # 0.7 10^3/ul (0.8-2.9); MONOCYTE # 0.4 10^3/ul (0.3-0.9); NEUTROPHIL # 3.5 10^3/ul (1.6-7.5)
[2016-11-25 08:13] LABS: ANISOCYTOSIS 1+; PLATELET ESTIMATE PLT APPEAR ADEQUATE; TOXIC GRANULATION FEW
[2016-11-25 08:18] LABS: HEPATITIS B CORE ANTIBODY NEGATIVE (NEGATIVE)
[2016-11-25] MEDS: CEFEPIME 2GM/50 ML (PMX) 50 ML IVPB SCH (08:52)
[2016-11-25] MEDS: metFORMIN 500 MG TAB PO SCH (08:53)
[2016-11-25] MEDS: ENOXAPARIN 40 MG/0.4 ML SYG SC SCH (09:00)
[2016-11-25] MEDS: SOD CHLORIDE 0.9% 1,000 ML IV SCH ×2 (09:01→17:45)
[2016-11-25] MEDS ORDERED: POTASSIUM CHLORIDE (SR) 20 MEQ TAB PO STA (09:03)
[2016-11-25] MEDS ORDERED: POTASSIUM CHLORIDE 250 ML IVPB ONE (09:30)
--- NOTE | 2016-11-25 10:32 | RADRPT ---
PROCEDURE: XR Chest. CLINICAL INDICATION: Pneumonia TECHNIQUE: Single frontal chest x-ray. COMPARISON: 10/18/2016 FINDINGS: There is a right-sided Port-A-Cath in place with tip in the superior vena cava new since prior exam. Elevated right hemidiaphragm with right basilar atelectasis is present unchanged. The left lung i s clear. . There is no evidence of pneumothorax. The cardiomediastinal silhouette is unremarkable. The osseous structures are intact. IMPRESSION: Right-sided Port-A-Cath in place new since prior exam.. Elevated right hemidiaphragm with right basilar atelectasis is stable. RPTAT: QQ .Adonay Garcia MD, Date Time Electronically viewed and signed by .Adonay Garcia MD, on 11/25/2016 10:32 .L/
[2016-11-25] MEDS ORDERED: LEVO750T25 PO (11:58)
[2016-11-25] MEDS ORDERED: LACT1CAP57 PO (11:58)
--- NOTE | 2016-11-25 12:04 | PDOCDIS ---
Discharge Instructions DIAGNOSIS Discharge Diagnosis: Fever and diarrhea CONDITION Patient Condition: Stable HOME CARE INSTRUCTIONS: Diet Instructions: Low Fat /CholesterolSpecial Diet: 1800 Calorie ACTIVITY: Activity Restrictions: Slowly Increase Activity Rest between Activity OTHER ORDERS: Other Orders: f/u with Dr Rufino REID Specialty: Oncology, Hematology Comments: Office Address: [address] [place] [address] Office or [phone] (after hours) Office LATONYA YOON Nov 25, 2016 12:04
[2016-11-25] MEDS ORDERED: METF500T4 PO (12:08)
[2016-11-25] MEDS ORDERED: METR500T PO (12:08)
--- NOTE | 2016-11-25 12:15 | DS ---
Date/Time of Note Date/Time of Note DATE: 11/25/16 TIME: 12:05 Discharge Summary Admission/Discharge Info Admit Date/Time Nov 22, 2016 at 23:41 Discharge Date/Time November 25, 2016. . Final Diagnosis 1. Severe sepsis secondary to #2 2. Neutropenic fever versus infectious diarrhea #3. 3. Diarrhea: Infectious versus associated with chemo side effect 4. Metastatic colon adenocarcinoma with lymphatic, pulmonary and liver metastasis 5. History of heavy alcohol use with alcoholic cirrhosis 6. Hypochromic anemia likely secondary to chronic kidney disease disease and cancer 7. Leukopenia secondary to recent chemo now resolved on Neupogen 8. Diabetes type 2 with suboptimal home control A1c of 9.7 9. Status post post partial sigmoid colon resection with colocolic anastomosis secondary to #4 10. Hypokalemia resolved Hx of Present Illness Chief complaint: Diarrhea This a 51-year-old male with a history of colon cancer status post resection is currently undergoing chemotherapy is complaining of nausea vomiting diarrhea for the past 4-5 days. Patient is having nonbilious nonbloody vomit, nonbloody diarrhea. The patient is having uncountable number of diarrhea per the family for the past 4 days. He has about 4-6 vomits a day. He is not eating. Denies fever he has no chest pain shortness of breath no cough dysuria hematuria. He says he has diffuse abdominal pain is fairly constant and getting worse over the past 4 days. Allergies: NKDA Medications: See MAR . Hospital Course This 51-year-old man who came in with fever and profuse diarrhea as well as severe lethargy and dehydration. Also had hypokalemia from persistent diarrhea. He had been having multiple diarrheal episodes for the last 4 days prior to presentation. This episode started about 2 days after his first chemo session for metastatic colon cancer. He was admitted and the question was if the diarrhea await infectious concern sepsis versus him having a neutropenic fever and a diarrhea that was side effects of his recent chemo. He was however empirically started on antibiotics and he has done very well at this time his diarrhea is all but resolved, he is tolerating a regular diet he feels back to his normal self and he is okay with being discharged home. I spoke with infectious disease team of also spoke with the oncology team, at this point is still unclear if his diarrhea was infectious however all his stool studies and cultures came back negative. If he indeed did have a neutropenic fever however again the source is not found which is not on, the patient will need to be treated with antibiotic for an acceptable period of time if he had neutropenic fever associated with chemo. Therefore we will discharge him home on the another week's course of antibiotics to cover gastrointestinal organisms as well as broad-spectrum and he will continue outpatient follow-up with his primary care doctor as well as with his oncologist. Of note is that a hemoglobin A1c came back elevated on the patient, but while in -house on his home dose of his metformin 500 mg once a day he had excellent glycemic control. Note that patient's appetite was not optimal however due to his upper comorbidities. Hence we will be increasing his metformin to 500 twice a day and defer further interventional management to his outpatient primary care physician. This has been communicated to him and he has verbalized understanding. Further interventions with his primary care doctor, Also, all his other comorbidities were worked up and managed in-house as per medical records. For clarifications further information, please review the patient's chart and physician orders. . Home Meds Active Scripts Metronidazole* (Flagyl*) 500 Mg Tablet, 500 MG PO Q8 for 7 Days, TAB Prov:KARRIELATONYA Boudreaux M. 11/25/16 Metformin Hcl* (Metformin Hcl*) 500 Mg Tablet, 500 MG PO WITH BREAKFAST DINNE, # 30 TAB Prov:KARRIELATONYA M. 11/25/16 Lactobacillus Rhamnosus* (Culturelle*) 1 Each Cap.sprink, 1 CAP PO BID for 30 Days, CAP Prov:LATONYA YOON M. 11/25/16 Levofloxacin* (Levaquin*) 750 Mg Tablet, 750 MG PO DAILY for 7 Days, TAB Prov:KARRIEDEANNAO M. 11/25/16 Reported Medications Ferrous Sulfate* (Ferrous Sulfate*) 325 Mg Tabec, 325 MG PO BID, TAB 11/22/16 Discontinued Reported Medications Enalapril Maleate* (Enalapril Maleate*) 5 Mg Tablet, #30 10/16/16 Simvastatin (Simvastatin) 10 Mg Tablet, #30 10/16/16 Follow-up Plan See hospital course. . Primary Care Provider Leeroy Armenta Time spent on discharge: > 30 minutes Pending Labs Laboratory Tests Test 11/24/16 12:21 11/24/16 17:48 11/24/16 21:05 11/25/16 05:46 Bedside Glucose 129mg/dL (70-220) 116mg/dL (70-220) 108mg/dL (70-220) White Blood Count 5.010^3/ul (4.8-10.8) Red Blood Count 3.2910^6/ul (4.70-6.10) Hemoglobin 8.8g/dl (14.0-18.0) Hematocrit 27.7% (42.0-52.0) Mean Corpuscular Volume 84.2fl (82.0-101.0) Mean Corpuscular Hemoglobin 26.7pg (29.0-33.0) Mean Corpuscular Hemoglobin Concent 31.8g/dl (32.0-37.0) Red Cell Distribution Width 17.1% (11.5-14.5) Platelet Count 47860^3/UL (140-415) Mean Platelet Volume 10.7fl (7.4-10.4) Neutrophils % 69.0% (39.0-77.0) Band Neutrophils % 10.0% (0.0-5.0) Lymphocytes % 13.0% (15.0-51.0) Monocytes % 7.0% (0.0-11.0) Eosinophils % % (0.0-7.0) Metamyelocytes % 1.0% (0.0-0.0) Neutrophils # 3.510^3/ul (1.6-7.5) Lymphocytes # 0.710^3/ul (0.8-2.9) Monocytes # 0.410^3/ul (0.3-0.9) Eosinophils # 10^3/ul (0.0-0.5) Metamyelocytes # 0.1 Toxic Granulation FEW Platelet Estimate PLT APPEAR ADEQUATE Anisocytosis 1+ Sodium Level 134mmol/L (135-144) Potassium Level 3.0mmol/L (3.5-5.1) Chloride Level 108mmol/L (97-110) Carbon Dioxide Level 20mmol/L (21-31) Anion Gap 9 (8-16) Blood Urea Nitrogen 3mg/dl (7-20) Creatinine 0.57mg/dl (0.61-1.24) Glucose Level 93mg/dl (70-220) Calcium Level 7.5mg/dl (8.4-10.2) Hepatitis B Surface Antigen NEGATIVE (NEGATIVE) Hepatitis B Surface Antibody NEGATIVE (NEGATIVE) Hepatitis B Core Total Antibody NEGATIVE (NEGATIVE) Hepatitis C Antibody NEGATIVE (NEGATIVE) Test 11/25/16 07:45 11/25/16 11:37 Bedside Glucose 96mg/dL (70-220) 103mg/dL (70-220) LATONYA YOON Nov 25, 2016 12:15
--- NOTE | 2016-11-25 14:10 | CONS ---
Date/Time of Note Date/Time of Note DATE: 11/25/16 TIME: 14:04 Assessment/Plan Assessment/Plan Chief Complaint/Hosp Course The patient is a 51 year old male previously treated by Dr. Joy with a history of alcoholic cirrhosis, DM, history of colorectal cancer status post surgery, chemo and radiation per patient's in 2015, who presented during the last admission with new metastatic disease to the liver and lung. CT revealed moderate mediastinal, prevascular space and retrosternal lymphadenopathy, numerous bilateral noncalcified pulmonary nodules up to 1.3 cm consistent with metastasis, and extensive inhomogeneous ill-defined low density lesions involving the right left lobes of the liver consistent with malignancy likely metastasis though multi focal hepatic cellular carcinoma cannot be excluded with findings suggestive of cirrhosis. # Neutropenic fever, secondary to chemotherapy (FOLFIRI) on 11/16/16, now with resolution of fever and resolution of neutropenia with ANC 3500. - Patient was on vanc and cefepime, appreciate ID recs, blood and urine cultures negative. Ok to discharge patient home from oncology perspective ( after potassium repletion) with 7 day course of oral levaquin and follow-up with Dr. Joy as an outpatient. - C. diff neg, stool culture negative. Ok to give imodium as diarrhea is frequently seen with irinotecan chemotherapy - Ok to discontinue neupogen # Metastatic colon cancer - status post liver biopsy 10/17/16, demonstrated metastatic poorly- differentiated adenocarcinoma with morphological and immunophenotypic features compatible with a colorectal primary. - KRAS, NRAS, BRAF, MSI testing on path specimen requested, will follow-up results - Patient received cycle 1 of FOLFIRI/Avastin on 11/16/16 - Monitor abdominal pain, mild, Avastin can occasionally be associated with perforation however mild abdominal pain and CT did not reveal free air - CT A/P 11/22/16 demonstrated 1. Multiple hepatic and inferior pulmonary metastases, not significantly changed. 2. Metastatic pericardiac, retrocrural, periportal, and retroperitoneal lymphadenopathy, not significantly changed. 3. Status post partial sigmoid colon resection with colocolic anastomosis. 4. Moderate bilateral fat containing inguinal hernias, left larger than right. - Once discharged, plan to continue FOLFIRI/Avastin per Dr. Joy every 2 weeks # Normocytic anemia, currently at 8.8, monitor - Iron panel previously consistent with anemia of chronic inflammation - Vitamin B12 and folate normal, TSH WNL, retic count inappropriately low; LDH elevated at 2209 likely due to metastatic cancer, haptoglobin not suppressed arguing against hemolysis Problems: Consultation Date/Type/Reason Admit Date/Time Nov 22, 2016 at 23:41 Initial Consult Date 11/23/16 Type of Consultation: Hematology/Oncology 24 HR Interval Summary Free Text/Dictation Patient feels well, minimal diarrhea, no fevers, ready to go home. Exam/Review of Systems Vital Signs Vitals Vital Signs Date Time Temp Pulse Resp B/P Pulse Ox O2 Delivery O2 Flow Rate FiO2 11/25/16 12:02 81 11/25/16 11:25 97.2 19 119/65 98 11/22/16 23:30 Room Air Intake and Output 11/24/16 11/24/16 11/25/16 15:00 23:00 07:00 Intake Total 2225 ml 2350 ml Balance 2225 ml 2350 ml Exam Constitutional: alert, oriented Head: normocephalic Eyes: nl conjunctiva Neck: supple Respiratory: clear to auscultation Cardiovascular: regular rate and rhythm Gastrointestinal: soft, tender (bilateral lower quadrant pain, mild, no rebound or guarding) Musculoskeletal: nl extremities to inspection Neurological: RIVER CROSSING SUPERVISOR II-XII intact Results Result Diagram: 11/25/16 0546 11/25/16 0546 Results 24 hrs Laboratory Tests Test 11/24/16 17:48 11/24/16 21:05 11/25/16 05:46 11/25/16 07:45 Bedside Glucose 116 108 96 White Blood Count 5.0 Red Blood Count 3.29 L Hemoglobin 8.8 L Hematocrit 27.7 L Mean Corpuscular Volume 84.2 Mean Corpuscular Hemoglobin 26.7 L Mean Corpuscular Hemoglobin Concent 31.8 L Red Cell Distribution Width 17.1 H Platelet Count 200 Mean Platelet Volume 10.7 H Neutrophils % 69.0 Band Neutrophils % 10.0 H Lymphocytes % 13.0 L Monocytes % 7.0 Eosinophils % Metamyelocytes % 1.0 H Neutrophils # 3.5 Lymphocytes # 0.7 L Monocytes # 0.4 Eosinophils # Metamyelocytes # 0.1 Toxic Granulation FEW Platelet Estimate PLT APPEAR ADEQUATE Anisocytosis 1+ Sodium Level 134 L Potassium Level 3.0 L Chloride Level 108 Carbon Dioxide Level 20 L Anion Gap 9 Blood Urea Nitrogen 3 L Creatinine 0.57 L Glucose Level 93 Calcium Level 7.5 L Hepatitis B Surface Antigen NEGATIVE Hepatitis B Surface Antibody NEGATIVE Hepatitis B Core Total Antibody NEGATIVE Hepatitis C Antibody NEGATIVE Test 11/25/16 11:37 Bedside Glucose 103 Medications Medications Current Medications Sodium Chloride (NS) 1,000 ml @ 70 mls/hr [id number] IV Last administered on 12:00; Admin Dose 70 MLS/HR; Start 11/23/16 at 00:39 Lorazepam (Ativan) 0.5 mg Q6H PRN IV ANXIETY; Start 11/23/16 at 01:00 Ondansetron HCl (Zofran Inj) 4 mg Q6H PRN IV NAUSEA AND/OR VOMITING; Start 11/23 at 01:00 Metoclopramide HCl (Reglan) 10 mg Q6H PRN IV NAUSEA AND/OR VOMITING Last administered on 11/23/16 01:29; Admin Dose 10 MG; Start 11/23/16 at 01:00 Acetaminophen (Tylenol Tab) 650 mg Q6H PRN PO PAIN LEVEL 1-3 OR FEVER Last administered on 11/23/16 01:30; Admin Dose 650 MG; Start 11/23/16 at 01:00 Pantoprazole (Protonix Iv) 40 mg DAILY@06 IV Last administered on 11/25/16 05: 27; Admin Dose 40 MG; Start 11/23/16 at 06:00 Enoxaparin Sodium (Lovenox) 40 mg DAILY SC Last administered on 11/25/16 09:00 ; Admin Dose 40 MG; Start 11/23/16 at 09:00 Miscellaneous Information 1 ea NOTE XX ; Start 11/23/16 at 01:00 Glucose (Glutose) 15 gm Q15M PRN PO DECREASED GLUCOSE; Start 11/23/16 at 01:00 Glucose (Glutose) 22.5 gm Q15M PRN PO DECREASED GLUCOSE; Start 11/23/16 at 01:00 Dextrose (D50w Syringe) 25 ml Q15M PRN IV DECREASED GLUCOSE; Start 11/23/16 at 01:00 Dextrose (D50w Syringe) 50 ml Q15M PRN IV DECREASED GLUCOSE; Start 11/23/16 at 01:00 Glucagon (Glucagen) 1 mg Q15M PRN IM DECREASED GLUCOSE; Start 11/23/16 at 01:00 Glucose 15 gm 15 gm Q15M PRN BUCCAL DECREASED GLUCOSE; Start 11/23/16 at 01:00 Cefepime HCl (Maxipime 2gm/50 ml (Pmx)) 50 ml @ 100 mls/hr Q12 IVPB Last administered on 11/25/16 08:52; Admin Dose 100 MLS/HR; Start 11/23/16 at 01:00 Hydromorphone HCl 1 mg 1 mg Q4H PRN IV PAIN Last administered on 11/23/16 22:02 ; Admin Dose 1 MG; Start 11/23/16 at 06:30 Vancomycin HCl (Vancocin) 250 ml @ 125 mls/hr Q8H IVPB Last administered on 12:32; Admin Dose 125 MLS/HR; Start 11/23/16 at 11:30 TOANA PAULA MD Nov 25, 2016 14:10
[2016-11-25] MEDS ORDERED: LOPERAMIDE 2 MG CAP PO PRN (14:30)
--- NOTE | 2016-11-25 16:23 | QN ---
Documentation Comment Patient's diarrhea got worse after initial review, will hold discharge for now. LATONYA YOON. Nov 25, 2016 16:23
[2016-11-25] MEDS: CIPROFLOXACIN 500 MG TAB GTB SCH (17:44)
[2016-11-25] MEDS: metroNIDAZOLE 500 MG TAB PO SCH (21:47)
[2016-11-26] VITALS (7 sets, daily range): BP systolic 108–128; BP diastolic 69–76; PULSE 69–79; RESP 19–20
[2016-11-26] MEDS: metroNIDAZOLE 500 MG TAB PO SCH (05:04)
[2016-11-26] MEDS: CIPROFLOXACIN 500 MG TAB GTB SCH (05:04)
[2016-11-26] MEDS: PANTOPRAZOLE 40 MG INJ IV SCH (05:04)
[2016-11-26 06:57] LABS: ADD SCAN DIFF NO
[2016-11-26 07:04] LABS: ABNORMAL IP MESSAGE 1; HEMATOCRIT 30.4 % (42.0-52.0); HEMOGLOBIN 9.4 g/dl (14.0-18.0); MEAN CORPUSCULAR HEMOGLOBIN 26.3 pg (29.0-33.0); MEAN CORPUSCULAR HGB CONC 30.9 g/dl (32.0-37.0); MEAN CORPUSCULAR VOLUME 84.9 fl (82.0-101.0); MEAN PLATELET VOLUME 11.1 fl (7.4-10.4); PLATELET COUNT 250 10^3/UL (140-415); RED BLOOD COUNT 3.58 10^6/ul (4.70-6.10); RED CELL DISTRIBUTION WIDTH 17.5 % (11.5-14.5); WHITE BLOOD COUNT 7.1 10^3/ul (4.8-10.8)
[2016-11-26] MEDS: INSULIN ASPART [NOVOLOG] 3 ML PEN SC SCH ×2 (07:16→11:20)
[2016-11-26 07:26] LABS: ANION GAP 9 (8-16); CALCIUM 8.2 mg/dl (8.4-10.2); CARBON DIOXIDE 22 mmol/L (21-31); CHLORIDE 109 mmol/L (97-110); CREATININE 0.58 mg/dl (0.61-1.24); GLUCOSE 91 mg/dl (70-220); POTASSIUM 3.9 mmol/L (3.5-5.1); SODIUM 136 mmol/L (135-144)
[2016-11-26 07:27] LABS: BLOOD UREA NITROGEN < 2 mg/dl (7-20)
--- NOTE | 2016-11-26 08:04 | PN ---
DATE: 11/25/2016 INFECTIOUS DISEASE PROGRESS NOTE SUBJECTIVE: No events overnight. The patient is alert, complaining of diarrhea. He is afebrile. MICROBIOLOGY: All cultures have been negative. Stool for C. diff came back negative, no ova and pa rasites. INDWELLINGS: Port-A-Cath. ANTIMICROBIALS: 1. Vancomycin. 2. Cefepime. PHYSICAL EXAMINATION: GENERAL: This is well-developed, middle-aged man who is alert, in no distress. HEENT: Head atraumatic, normocephalic. Sclerae anicteric. Buccal mucosa pink. NECK: Supple. CHEST: Rise symmetrical. Breath sounds clear. HEART: S1, S2. ABDOMEN: Soft. Bowel tones present. EXTREMITIES: No cyanosis. ASSESSMENT: 1. Persistent diarrhea, possible gastroenteritis. 2. Status post systemic inflammatory response syndrome with fevers on admission. 3. Diabetes. 4. Metastatic colon cancer. 5. Alcoholic cirrhosis. PLAN: The patient remains stable, started on antidiarrheal treatment with Imodium. We are going to start him on Cipro and Flagyl and discontinue other antibiotics. Follow oncology recommendations. Dictated By: MERLE RODRIGUEZ MOTOR TESTER for [employer]/JR Conf#: [id number] DID#: [id number]
[2016-11-26] MEDS: metFORMIN 500 MG TAB PO SCH (08:22)
[2016-11-26] MEDS: SOD CHLORIDE 0.9% 1,000 ML IV SCH (08:22)
[2016-11-26] MEDS: ENOXAPARIN 40 MG/0.4 ML SYG SC SCH (08:27)
[2016-11-26 11:00] LABS: EOSINOPHILS # 0.1 10^3/ul (0.0-0.5); LYMPHOCYTES # 1.6 10^3/ul (0.8-2.9); MONOCYTE # 0.5 10^3/ul (0.3-0.9); NEUTROPHIL # 2.6 10^3/ul (1.6-7.5)
[2016-11-26] MEDS ORDERED: HEPARIN (100 UNITS/ML) 5 ML SYG CATHETER ONE (12:30)
--- NOTE | 2016-11-26 12:39 | CONS ---
Date/Time of Note Date/Time of Note DATE: 11/26/16 TIME: 12:35 Assessment/Plan Assessment/Plan Chief Complaint/Hosp Course The patient is a 51 year old male previously treated by Dr. Joy with a history of alcoholic cirrhosis, DM, history of colorectal cancer status post surgery, chemo and radiation per patient's in 2015, who presented during the last admission with new metastatic disease to the liver and lung. CT revealed moderate mediastinal, prevascular space and retrosternal lymphadenopathy, numerous bilateral noncalcified pulmonary nodules up to 1.3 cm consistent with metastasis, and extensive inhomogeneous ill-defined low density lesions involving the right left lobes of the liver consistent with malignancy likely metastasis though multi focal hepatic cellular carcinoma cannot be excluded with findings suggestive of cirrhosis. # Neutropenic fever, secondary to chemotherapy (FOLFIRI) on 11/16/16, now with resolution of fever and resolution of neutropenia - Patient was on vanc and cefepime, appreciate ID recs, blood and urine cultures negative. Ok to discharge patient home from oncology perspective and follow-up with Dr. Joy as an outpatient. Patient on cipro/flagyl per ID. - C. diff neg, stool culture negative. Ok to give imodium as diarrhea is frequently seen with irinotecan chemotherapy - Ok to discontinue neupogen # Metastatic colon cancer - status post liver biopsy 10/17/16, demonstrated metastatic poorly- differentiated adenocarcinoma with morphological and immunophenotypic features compatible with a colorectal primary. - KRAS, NRAS, BRAF, MSI testing on path specimen requested, will follow-up results - Patient received cycle 1 of FOLFIRI/Avastin on 11/16/16 - Monitor abdominal pain, mild, Avastin can occasionally be associated with perforation however mild abdominal pain and CT did not reveal free air - CT A/P 11/22/16 demonstrated 1. Multiple hepatic and inferior pulmonary metastases, not significantly changed. 2. Metastatic pericardiac, retrocrural, periportal, and retroperitoneal lymphadenopathy, not significantly changed. 3. Status post partial sigmoid colon resection with colocolic anastomosis. 4. Moderate bilateral fat containing inguinal hernias, left larger than right. - Once discharged, plan to continue FOLFIRI/Avastin per Dr. Joy every 2 weeks # Normocytic anemia, currently at 9.4, monitor - Iron panel previously consistent with anemia of chronic inflammation - Vitamin B12 and folate normal, TSH WNL, retic count inappropriately low; LDH elevated at 2209 likely due to metastatic cancer, haptoglobin not suppressed arguing against hemolysis Problems: Consultation Date/Type/Reason Admit Date/Time Nov 22, 2016 at 23:41 Initial Consult Date 11/23/16 Type of Consultation: Hematology/Oncology 24 HR Interval Summary Free Text/Dictation Doing well, states that he diarrhea is much improved and is stool is now more formed. He feels well, no complaints. Exam/Review of Systems Vital Signs Vitals Vital Signs Date Time Temp Pulse Resp B/P Pulse Ox O2 Delivery O2 Flow Rate FiO2 11/26/16 12:13 69 11/26/16 11:41 98.9 20 108/69 11/26/16 07:32 99 11/22/16 23:30 Room Air Intake and Output 11/25/16 11/25/16 11/26/16 14:59 22:59 06:59 Intake Total 1875 ml 1000 ml Balance 1875 ml 1000 ml Exam Constitutional: alert, oriented Head: normocephalic Eyes: nl conjunctiva Neck: supple Respiratory: clear to auscultation Cardiovascular: regular rate and rhythm Gastrointestinal: soft, tender (bilateral lower quadrant pain, mild, no rebound or guarding) Musculoskeletal: nl extremities to inspection Neurological: CREDIT CONTROL CLERK II-XII intact Results Result Diagram: 11/26/16 0535 11/26/16 0535 Results 24 hrs Laboratory Tests Test 11/25/16 17:43 11/25/16 21:40 11/26/16 05:35 11/26/16 07:13 Bedside Glucose 127 101 101 White Blood Count 7.1 # Red Blood Count 3.58 L Hemoglobin 9.4 L Hematocrit 30.4 L Mean Corpuscular Volume 84.9 Mean Corpuscular Hemoglobin 26.3 L Mean Corpuscular Hemoglobin Concent 30.9 L Red Cell Distribution Width 17.5 H Platelet Count 250 # Mean Platelet Volume 11.1 H Neutrophils % 36.0 L Band Neutrophils % 32.0 H Lymphocytes % 23.0 Monocytes % 7.0 Eosinophils % 2.0 Neutrophils # 2.6 Lymphocytes # 1.6 Monocytes # 0.5 Eosinophils # 0.1 Sodium Level 136 Potassium Level 3.9 Chloride Level 109 Carbon Dioxide Level 22 Anion Gap 9 Blood Urea Nitrogen < 2 L Creatinine 0.58 L Glucose Level 91 Calcium Level 8.2 L Test 11/26/16 11:32 Bedside Glucose 98 Medications Medications Current Medications Sodium Chloride (NS) 1,000 ml @ 70 mls/hr [id number] IV Last administered on 08:22; Admin Dose 70 MLS/HR; Start 11/23/16 at 00:39 Lorazepam (Ativan) 0.5 mg Q6H PRN IV ANXIETY; Start 11/23/16 at 01:00 Ondansetron HCl (Zofran Inj) 4 mg Q6H PRN IV NAUSEA AND/OR VOMITING; Start 11/23 at 01:00 Metoclopramide HCl (Reglan) 10 mg Q6H PRN IV NAUSEA AND/OR VOMITING Last administered on 11/23/16 01:29; Admin Dose 10 MG; Start 11/23/16 at 01:00 Acetaminophen (Tylenol Tab) 650 mg Q6H PRN PO PAIN LEVEL 1-3 OR FEVER Last administered on 11/23/16 01:30; Admin Dose 650 MG; Start 11/23/16 at 01:00 Pantoprazole (Protonix Iv) 40 mg DAILY@06 IV Last administered on 11/26/16 05: 04; Admin Dose 40 MG; Start 11/23/16 at 06:00 Enoxaparin Sodium (Lovenox) 40 mg DAILY SC Last administered on 11/26/16 08:27 ; Admin Dose 40 MG; Start 11/23/16 at 09:00 Miscellaneous Information 1 ea NOTE XX ; Start 11/23/16 at 01:00 Glucose (Glutose) 15 gm Q15M PRN PO DECREASED GLUCOSE; Start 11/23/16 at 01:00 Glucose (Glutose) 22.5 gm Q15M PRN PO DECREASED GLUCOSE; Start 11/23/16 at 01:00 Dextrose (D50w Syringe) 25 ml Q15M PRN IV DECREASED GLUCOSE; Start 11/23/16 at 01:00 Dextrose (D50w Syringe) 50 ml Q15M PRN IV DECREASED GLUCOSE; Start 11/23/16 at 01:00 Glucagon (Glucagen) 1 mg Q15M PRN IM DECREASED GLUCOSE; Start 11/23/16 at 01:00 Glucose (Glutose) 15 gm Q15M PRN BUCCAL DECREASED GLUCOSE; Start 11/23/16 at 01: 00 Hydromorphone HCl (Dilaudid) 1 mg Q4H PRN IV PAIN Last administered on 22:02; Admin Dose 1 MG; Start 11/23/16 at 06:30 Loperamide HCl (Imodium Cap) 2 mg QID PRN PO DIARRHEA Last administered on 14:56; Admin Dose 2 MG; Start 11/25/16 at 14:30 Ciprofloxacin (Cipro) 500 mg BID@06,18 GTB Last administered on 11/26/16 05:04 ; Admin Dose 500 MG; Start 11/25/16 at 18:00 Metronidazole (Flagyl) 500 mg Q8 PO Last administered on 11/26/16 05:04; Admin Dose 500 MG; Start 11/25/16 at 22:00 TOANA PAULA MD Nov 26, 2016 12:39
--- NOTE | 2016-11-26 21:26 | DS ---
DATE OF ADMISSION: 11/22/2016 DATE OF DISCHARGE: 11/26/2016 ADDENDUM DISCHARGE DIAGNOSES: 1. Severe sepsis secondary to infectious diarrhea, now resolved with resolution of diarrhea. 2. Metastatic colon adenocarcinoma with pulmonary and liver metastases. 3. History of alcohol abuse with alcoholic cirrhosis. 4. Hypochromic anemia secondary to chronic kidney disease and cancer. 5. Leukopenia secondary to recent chemotherapy, now resolved on Neupogen. 6. Type 2 diabetes with suboptimal control. A1c of 9.7. 7. Status post partial sigmoid colon resection with colocolic anastomosis. 8. Hyperkalemia, resolved. HOSPITAL COURSE: Please see discharge summary on 11/25/2016 by ____ for details of hospital cou rse. The patient's discharge was held secondary to patient's persistent diarrhea. The patient's diarrhea did resolve on day of discharge. The patient was felt to be stable for discharge. CONDITION ON DISCHARGE: Stable. DISPOSITION: To home. DISCHARGE MEDICATIONS: As per discharge summary on 11/25/2016. FOLLOWUP: As per discharge summary on 11/25/2016. Dictated By: CULLEN TEJADA MD BS/NTS Conf#: [id number] DID#: [id number] CC: [place]IA JONES MD;*EndCC*
--- NOTE | 2016-11-27 07:17 | PN ---
DATE: 11/26/2016 SUBJECTIVE: Patient is alert, feels good, diarrhea resolved. He is in no distress. He was started yesterday on Cipro and Flagyl. INDWELLINGS: Right chest Port-A-Cath. LABORATORY DATA: WBC today 7.1. PHYSICAL EXAMINATION: GENERAL: Well-developed, middle-aged man who is alert, in no distress. HEENT: Head atraumatic, normocephalic. Sclerae anicteric. Buccal mucosa pink. NECK: Supple, trachea midline. CHEST: Rise symmetrical. Breath sounds diminished to bases. HEART: S1, S2. ABDOMEN: Soft, bowel tones present. EXTREMITIES: No cyanosis. ASSESSMENT: 1. Status post systemic inflammatory response syndrome. 2. Status post neutropenic fevers. 3. Resolving diarrhea, questionable secondary to chemotherapy. So far stool for Clostridium diffic ile and stool cultures had been negative, patient was started on Imodium and empiric Cipro and Flagy l. 4. Metastatic colon cancer. 5. History of colon resection. PLAN: The patient remains stable pending discharge planning. Dictated By: MERLE RODRIGUEZ EARLY CHILDHOOD TEACHER for [employer] WARD/NTS Conf#: [id number] DID#: [id number]
== END 2016-11-26 13:00 | disposition home or self-care (01) | DRG 872 ==
LOC: E/R 18:42 → TEL 23:41
PROVIDERS: ADMIT Family Medicine; ATTEND Family Medicine
DX: A41.9 Sepsis, unspecified organism (principal); C78.7 Secondary malignant neoplasm of liver and intrahepatic bile duct; C78.00 Secondary malignant neoplasm of unspecified lung; C77.9 Secondary and unspecified malignant neoplasm of lymph node, unspecified; D70.1 Agranulocytosis secondary to cancer chemotherapy; E86.0 Dehydration; C18.9 Malignant neoplasm of colon, unspecified; I12.9 Hypertensive chronic kidney disease with stage 1 through stage 4 chronic kidney disease, or unspecified chronic kidney disease; A09 Infectious gastroenteritis and colitis, unspecified; R65.20 Severe sepsis without septic shock; T45.1X5A Adverse effect of antineoplastic and immunosuppressive drugs, initial encounter; R50.81 Fever presenting with conditions classified elsewhere; K70.30 Alcoholic cirrhosis of liver without ascites; Z90.49 Acquired absence of other specified parts of digestive tract; Z92.3 Personal history of irradiation; F10.20 Alcohol dependence, uncomplicated; D50.9 Iron deficiency anemia, unspecified; D63.0 Anemia in neoplastic disease; E87.6 Hypokalemia; E11.22 Type 2 diabetes mellitus with diabetic chronic kidney disease; N18.9 Chronic kidney disease, unspecified; D63.1 Anemia in chronic kidney disease
CPT/HCPCS: 36415; 71010; 74177; 80048; 80053; 80061; 80076; 80202; 81003; 82962; 83036; 83605; 83690; 83735; 84443; 85025; 86674; 86704; 86706; 86803; 87040; 87045; 87075; 87086; 87177; 87205; 87340; 96374; 96375; 96376; C9113; J0692; J1170; J1335; J1642; J1650; J1815; J2270; J2405; J2765; J3370; J3475; J3480; J7030; J7050; Q9967

== ENCOUNTER 2017-02-05 11:18 | Emergency (ER) | payer BC ==
[~2017-02-05] VITALS: Ht 172.7 cm; Wt 74.5 kg
[~2017-02-05 11:18] MED LIST changes: -ENAL5TAB; +FER325 PO; +LACT1CAP57 PO; +LEVO750T25 PO; +METF500T4 PO; +METR500T PO; -SIMV10TA6
[2017-02-05 11:20] VITALS: Ht 172.7 cm; Wt 74.5 kg
[2017-02-05] MEDS ORDERED: ONDANSETRON 4 MG INJ IV STA (13:37)
[2017-02-05] MEDS ORDERED: HYDROmorphONE 1 MG/ML SYG IV STA (13:37)
[2017-02-05 14:12] LABS: ABNORMAL IP MESSAGE 1; BASOPHILS % 0.3 % (0.0-2.0); EOSINOPHILS % 0.4 % (0.0-7.0); HEMATOCRIT 26.3 % (42.0-52.0); HEMOGLOBIN 8.7 g/dl (14.0-18.0); LYMPHOCYTES # 0.9 10^3/ul (0.8-2.9); LYMPHOCYTES % 8.3 % (15.0-51.0); MEAN CORPUSCULAR HEMOGLOBIN 29.7 pg (29.0-33.0); MEAN CORPUSCULAR HGB CONC 33.1 g/dl (32.0-37.0); MEAN CORPUSCULAR VOLUME 89.8 fl (82.0-101.0); MONOCYTE # 0.6 10^3/ul (0.3-0.9); MONOCYTES % 4.9 % (0.0-11.0); NEUTROPHILS % 84.9 % (39.0-77.0); PLATELET COUNT 76 10^3/UL (140-415); POSITIVE DIFF @See below; RED BLOOD COUNT 2.93 10^6/ul (4.70-6.10); RED CELL DISTRIBUTION WIDTH 23.1 % (11.5-14.5); WHITE BLOOD COUNT 11.4 10^3/ul (4.8-10.8)
[2017-02-05 14:18] LABS: INR 1.89; PROTIME 21.9 Sec (12.2-14.2); PT RATIO 1.7
[2017-02-05 14:20] LABS: ALBUMIN 3.1 g/dl (3.3-4.9); ALBUMIN/GLOBULIN RATIO 0.58; BILIRUBIN,DIRECT 10.5 mg/dl (0.00-0.20); BILIRUBIN,INDIRECT 1.2 mg/dl (0-1.1); BILIRUBIN,TOTAL 11.7 mg/dl (0.2-1.3); CREATININE 2.57 mg/dl (0.61-1.24); TOTAL PROTEIN 8.4 g/dl (6.1-8.1)
[2017-02-05 14:28] LABS: POTASSIUM 5.1 mmol/L (3.5-5.1)
--- NOTE | 2017-02-05 15:17 | RADRPT ---
PROCEDURE: CT Abdomen and Pelvis without contrast. CLINICAL INDICATION: Abdominal pain and distension. TECHNIQUE: CT scan of the abdomen and pelvis without contrast was performed on a multidetector hig h-resolution CT scanner. The patient was scanned without intravenous contrast. Coronal and sagittal reformatted images were obtained from the axial source images. Images were reviewed on a high-resol [employer] PACS workstation. The total exam CTDI equals 17.13, 22.32, and 20.04 mGy and the total exam DL P equals 3451.61 mGy-cm. One or more of the following dose reduction techniques were used: Automated exposure control. Adjustment of the mA and/or kV according to patient size. Use of iterative reconstruction technique. COMPARISON: CT abdomen and pelvis 11/22/2016 FINDINGS: CT abdomen: The lung bases are remarkable for significant progression of the diffuse pulmonary metastasis. For instance, there is a dominant nodule in the left lung base now measures up to 18 mm which previously measures 11 mm. There is subsegmental atelectasis in the right lung base. The heart size is normal , without pericardial thickening or effusion. There are increased size of multiple mediastinal and r ight internal mammary lymphadenopathy. Left tracheobronchial lymphadenopathy now measures up to 2 cm in short axis which previously measures 1.3 cm. There has been significant interval worsening of diffuse liver metastasis. There is a confluent lar ge metastasis involving the near entire left hepatic lobe measuring 23 x 13 cm (transverse x cranioc audal). There has been slight interval increase in size of upper abdominal lymphadenopathy. For ins tance, the dominant lymph node measures up to 2.9 cm in gastrohepatic ligament on image [id number] which p reviously measures 2.3 cm. Multiple additional upper abdominal and retroperitoneal lymph nodes are noted. There is new small to moderate abdominopelvic ascites. The spleen is normal in size and homogeneous in density. The stomach is partially collapsed, but is grossly unremarkable. The pancreas as visualized is normal. The gallbladder is unremarkable. Ther e is no evidence for biliary dilatation. The adrenal glands are symmetric and normal. The kidneys are symmetrically unremarkable as well. No renal calculus or obstructive uropathy or mass lesion is seen. The aorta is of normal caliber. Aortic vascular calcifications are present. There is no retroperit [place] lymphadenopathy. The valeri hepatis region is clear. The bowel and mesentery, as visualized, are equally unremarkable. CT pelvis: The small bowel loops situated within the pelvis are unremarkable. Fat and fluid containing bilater al inguinal hernias are present. The pelvic organs are normal. The pelvic sidewalls and inguinal r egions are clear. The sigmoid colon and rectum are remarkable for sigmoid diverticulosis. No mass, or lymphadenopathy is seen. No acute inflammation is seen. The surrounding osseous structures are remarkable for degenerative spondylosis of the spine. No osteolytic or osteoblastic lesion is dete cted. IMPRESSION: 1. Significant interval progression of diffuse liver and pulmonary metastasis, as described above. 2. Worsening mediastinal, upper abdominal and retroperitoneal lymphadenopathy. 3. New small to moderate abdominopelvic ascites. 4. Sigmoid diverticulosis without evidence of acute diverticulitis. RPTAT: AAEE .Jenn Lan MD, Date Time Electronically viewed and signed by .Jenn Lan MD, on 02/05/2017 15:17 .O/
--- NOTE | 2017-02-05 15:44 | ERD ---
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 This patient has had no pain medicine at home according to the patient and the patient's sister who is at the bedside at this time. ROS All systems reviewed and are negative except as per history of present illness. Medications Home Meds Active Scripts Metformin Hcl* (Metformin Hcl*) 500 Mg Tablet, 500 MG PO WITH BREAKFAST DINNE, # 30 TAB Prov:LATONYA YOON M. 11/25/16 Reported Medications Ferrous Sulfate* (Ferrous Sulfate*) 325 Mg Tabec, 325 MG PO BID, TAB 11/22/16 Discontinued Scripts Metronidazole* (Flagyl*) 500 Mg Tablet, 500 MG PO Q8 for 7 Days, TAB Prov:LATONYA YOON. 11/25/16 Lactobacillus Rhamnosus* (Culturelle*) 1 Each Cap.sprink, 1 CAP PO BID for 30 Days, CAP Prov:KARRIE,DEANNAO M. 11/25/16 Levofloxacin* (Levaquin*) 750 Mg Tablet, 750 MG PO DAILY for 7 Days, TAB Prov:KARRIESONIASALENAO M. 11/25/16 Allergies Allergies: Coded Allergies: No Known Drug Allergies (Verified Allergy, Unknown, 02/05/17) PMhx/Soc History of Surgery: Yes (colon resection, PORT PLACEMENT) Anesthesia Reaction: No Hx Neurological Disorder: No Hx Respiratory Disorders: Yes (LUNG CANCER) Hx Cardiac Disorders: No Hx Psychiatric Problems: No Hx Miscellaneous Medical Probl: Yes (COLON/LIVER/LUNG CANCER, DM) Hx Alcohol Use: Yes (casual drinker) Hx Substance Use: No Hx Tobacco Use: Yes Smoking Status: Former smoker Physical Exam Vitals Vital Signs Date Time Temp Pulse Resp B/P Pulse Ox O2 Delivery O2 Flow Rate FiO2 02/05/17 14:00 83 19 106/71 100 Nasal Cannula 3.0 02/05/17 11:20 98.3 91 18 109/55 98 Physical Exam INITIAL VITAL SIGNS: Reviewed by me GENERAL: The patient is well developed and appropriate for usual state of health in no apparent distress HEENT: Scleral icterus, pupils equal, round, and reactive to light. EOMI. NECK: C-spine is soft and supple, there is no meningismus. There is no cervical lymphadenopathy. LUNGS: Clear to auscultation bilaterally. There are no rales, wheezes or rhonchi. HEART: Regular rate and rhythm, no murmurs, clicks, rubs or gallops. ABDOMEN: Soft, non-tender, non-distended. There are bowel sounds in all four quadrants. No rebound or guarding. EXTREMITIES: There is no peripheral cyanosis or edema. No focal swelling or erythema. NEUROLOGICAL: The patient moves all four extremities with 5/5 strength. Cranial nerves II - XII are intact. Normal gait. Alert and oriented SKIN: Jaundice HEME/LYMPHATIC: There is no evidence of excessive bruising or lymphedema. PSYCHIATRIC: The patient does not appear anxious or depressed. Result Diagram: 02/05/17 1339 02/05/17 1339 Results 24 hrs Laboratory Tests Test 02/05/17 13:39 White Blood Count 11.410^3/ul Red Blood Count 2.9310^6/ul Hemoglobin 8.7g/dl Hematocrit 26.3% Mean Corpuscular Volume 89.8fl Mean Corpuscular Hemoglobin 29.7pg Mean Corpuscular Hemoglobin Concent 33.1g/dl Red Cell Distribution Width 23.1% Platelet Count 7610^3/UL Mean Platelet Volume fl Neutrophils % 84.9% Lymphocytes % 8.3% Monocytes % 4.9% Eosinophils % 0.4% Basophils % 0.3% Nucleated Red Blood Cells % 0.0/100WBC Neutrophils # (Manual) 9.710^3/ul Lymphocytes # 0.910^3/ul Monocytes # 0.610^3/ul Eosinophils # 0.010^3/ul Basophils # 0.010^3/ul Nucleated Red Blood Cells # 0.010^3/ul Prothrombin Time 21.9Sec Prothrombin Time Ratio 1.7 INR International Normalized Ratio 1.89 Activated Partial Thromboplast Time 48.0Sec Sodium Level 131mmol/L Potassium Level 5.1mmol/L Chloride Level 94mmol/L Carbon Dioxide Level 20mmol/L Anion Gap 22 Blood Urea Nitrogen 58mg/dl Creatinine 2.57mg/dl Glucose Level 112mg/dl Calcium Level 9.0mg/dl Total Bilirubin 11.7mg/dl Direct Bilirubin 10.50mg/dl Indirect Bilirubin 1.2mg/dl Aspartate Amino Transf (AST/SGOT) 320IU/L Alanine Aminotransferase (ALT/SGPT) 38IU/L Alkaline Phosphatase 1108IU/L Total Protein 8.4g/dl Albumin 3.1g/dl Globulin 5.30g/dl Albumin/Globulin Ratio 0.58 Lipase 36U/L Current Medications Medications (Trade) Dose Ordered Sig/Shira Route PRN Reason Start Time Stop Time Status Last Admin Dose Admin Hydromorphone HCl (Dilaudid) 1 mg ONCE STAT IV 02/05/17 13:37 02/05/17 13:39 DC 02/05/17 13:45 Ondansetron HCl (Zofran Inj) 4 mg ONCE STAT IV 02/05/17 13:37 02/05/17 13:39 DC 02/05/17 13:45 Procedures/MDM CT abdomen pelvis without: 1. Significant interval progression of diffuse liver and pulmonary metastasis, as described above. 2. Worsening mediastinal, upper abdominal and retroperitoneal lymphadenopathy. 3. New small to moderate abdominopelvic ascites. 4. Sigmoid diverticulosis without evidence of acute diverticulitis. This 51-year-old male presents to the ER for evaluation of abdominal cramping. The patient does have a history of adenocarcinoma. The patient did have jaundice today and lab work does show elevation in his bilirubin. CT of the abdomen and pelvis does not show any obstruction of the portal system however the patient does have interval progression of diffuse liver and pulmonary metastases. Patient was given Dilaudid with resolution of his pain. The patient does have moderate abdominal pelvic ascites with a small amount of abdominal distention. I [facility]. The patient states that he does not want to stay in the hospital at this time. The patient will be discharged home with a prescription for Percocet Departure Diagnosis: Primary Impression: Metastatic adenocarcinoma Additional Impressions: Hyperbilirubinemia Normocytic anemia Condition: Stable ERIN MUELLER DO Feb 05, 2017 15:44
[2017-02-05] MEDS ORDERED: OXYC-279 PO (15:46)
[2017-02-05 15:53] VITALS: BP 103/70; PULSE 81; RESP 20; TEMP 98.1
[2017-02-05 16:10] LABS: ADD UMIC YES; UR AMORPHOUS CRYSTAL MANY /HPF (NONE SEEN); UR ASCORBIC ACID NEGATIVE (NEGATIVE); UR BACTERIA MANY /HPF (NONE SEEN); UR BILIRUBIN (Dip) 2+ mg/dL (NEGATIVE); UR BLOOD (Dip) 1+ mg/dL (NEGATIVE); UR CLARITY TURBID (CLEAR); UR COLOR RED (YELLOW); UR GLUCOSE (Dip) 1+ mg/dL (NEGATIVE); UR KETONES (Dip) NEGATIVE (NEGATIVE); UR LEUKOCYTE ESTERASE (Dip) NEGATIVE Leu/ul (NEGATIVE); UR MUCUS MANY /HPF (NONE SEEN); UR NITRITE (Dip) NEGATIVE (NEGATIVE); UR RBC 2 /HPF (0-5); UR SPECIFIC GRAVITY (Dip) 1.017 (1.003-1.030); UR TOTAL PROTEIN (Dip) 1+ mg/dl (NEGATIVE); UR UROBILINOGEN (Dip) 2+ mg/dL (NEGATIVE)
== END 2017-02-05 16:15 | disposition home or self-care (01) ==
LOC: E/R 11:18
DX: C18.9 Malignant neoplasm of colon, unspecified (principal); R17 Unspecified jaundice; D64.9 Anemia, unspecified; E11.9 Type 2 diabetes mellitus without complications; C34.90 Malignant neoplasm of unspecified part of unspecified bronchus or lung; C22.9 Malignant neoplasm of liver, not specified as primary or secondary; Z79.84 Long term (current) use of oral hypoglycemic drugs; Z87.891 Personal history of nicotine dependence
CPT/HCPCS: 36415; 74176; 80053; 81001; 83690; 85025; 85610; 85730; 96374; 96375; J1170; J2405; Z7502